=== PATIENT | male | born 1985 | race African-American/Black ===

== ENCOUNTER 2021-01-21 18:37 | Inpatient (IN) | payer OTHER, SELFPAY ==
[2021-01-21] VITALS (24 sets, daily range): BP systolic 111–142; BP diastolic 69–97; PULSE 108–127; RESP 19–28; TEMP 37.5; O2SAT 93–100
--- NOTE | ~2021-01-21 | XR_ITS ---
EXAMINATION: XR chest 1V portable DATE: 01/25/2021 06:00 INDICATION: Acute respiratory failure TECHNIQUE: frontal view of the chest was obtained. COMPARISON: Chest radiograph dated 01/24/2021 FINDINGS: Endotracheal tube tip 4.6 cm above the jovanni. Right internal jugular central venous catheter with di stal tip at the caudal superior vena cava. Nasogastric tube extends below the left hemidiaphragm wit h distal tip collimated off the study. New bandlike opacity in right middle lobe abutting the minor fissure. Also new retrocardiac opacity m edial left lower lung zone with obscuration of the costophrenic angle. No pneumothorax or right-sided pleural effusion.. The cardiomediastinal silhouette is normal. IMPRESSION: 1. New opacities in the bilateral lower lung zones which could represent atelectasis, pneumonia, smal l left pleural effusion or some combination thereof. Reviewed, dictated and finalized at location A. IMPRESSION: 1. New opacities in the bilateral lower lung zones which could represent atelec tasis, pneumonia, small left pleural effusion or some combination thereof.
--- NOTE | ~2021-01-21 | XR_ITS ---
XR chest 1V portable DATE: 01/31/2021 05:46 INDICATION: Respiratory failure TECHNIQUE: Portable AP chest on 01/31/2021 at 0522 hours COMPARISON: 01/30/2021 portable AP chest at 0511 hours FINDINGS: ET tube in satisfactory position 4.8 cm above jovanni. NG tube in stomach. Right internal ju gular central venous catheter tip overlies the upper aspect of right atrium. There is mild infiltrate or atelectasis in both perihilar and lower lung zones. No pleural effusion o r pneumothorax is evident. IMPRESSION: Mild infiltrates or atelectasis in the perihilar and lower lung zones Reviewed, dictated and finalized at location A. IMPRESSION: Mild infiltrates or atelectasis in the perihilar and lower lung zon es
--- NOTE | ~2021-01-21 | XR_ITS ---
EXAMINATION: XR chest port-a-cath/central INDICATION: Dialysis catheter placement TECHNIQUE: Portable AP view of the chest is obtained at 1436 hours COMPARISON: 0524 hours FINDINGS: A large bore left internal jugular catheter ends with its tip in the distal superior vena c larry. A right internal jugular catheter ends with its tip in the distal superior vena cava. The endotr acheal tube ends approximately 3.6 cm above the jovanni. The nasogastric tube is followed as far as th e stomach. Its tip is beyond the inferior margin of the radiograph. Patchy bilateral airspace opaciti es persist without significant change. A small left pleural effusion is stable. There is no pneumotho rax. The cardiomediastinal silhouette is normal for technique. IMPRESSION: 1. Lines and tubes in adequate position. 2. Stable diffuse lung disease, consistent with atelectasis versus pneumonia versus pulmonary edema. 3. Small left pleural effusion. Reviewed, dictated and finalized at location B. IMPRESSION: 1. Lines and tubes in adequate position. 2. Stable diffuse lung disease, consistent with atelectasis versus pneumonia ve rsus pulmonary edema. 3. Small left pleural effusion.
--- NOTE | ~2021-01-21 | XR_ITS ---
EXAMINATION: XR chest 1V portable DATE: 01/23/2021 05:37 INDICATION: Acute respiratory failure. TECHNIQUE: frontal view of the chest was obtained. COMPARISON: Chest radiograph dated 01/22/2021 FINDINGS: Endotracheal tube tip 4.2 cm above the jovanni. Nasogastric tube extends below the left hemidiaphragm with distal tip collimated off the study. Right internal jugular central venous catheter with distal tip at the caudal superior vena cava. No focal airspace opacities, pulmonary edema, pleural effusion or pneumothorax. The cardiomediastinal silhouette is normal. Visualized bones and soft tissues are unremarkable. IMPRESSION: 1. No acute cardiopulmonary disease. Reviewed, dictated and finalized at location A.
--- NOTE | ~2021-01-21 | CT_ITS ---
EXAMINATION: CT BRAIN W/O DATE: 01/21/2021 23:31 INDICATION: Redness of breath. Altered mental status. Covid positive. TECHNIQUE: Computed tomography (CT) of the head was performed without intravenous contrast. The dose- length product was 756.67 mGy-cm. Automated exposure control and iterative reconstruction technique w ere employed. COMPARISON: 06/09/2010 FINDINGS: Normal brain parenchymal volume for age. Normal beverly-white differentiation. No acute intrac ranial hemorrhage, infarction, mass or mass effect. No ventriculomegaly or midline shift. Midline sagittal images demonstrate a normal corpus callosum, c raniovertebral junction and sella turcica. Basilar cisterns are patent. There is mild mucosal thickening of the posterior ethmoid sinuses. IMPRESSION: 1. No acute intracranial abnormality. Reviewed, dictated and finalized at location A.
--- NOTE | ~2021-01-21 | XR_ITS ---
XR chest 1V portable DATE: 02/02/2021 05:25 INDICATION: Respiratory failure, Covid pneumonia TECHNIQUE: Portable AP chest on 02/12/2021 at 0518 hours COMPARISON: 02/01/2021 portable AP chest at 0510 hours FINDINGS: ET tube tip approximately 6.3 cm above jovanni; ideal range is 2-5 cm. Right internal jugular central venous catheter tip overlies the lower aspect of the superior vena cav a. NG tube is noted in the stomach. Cardiomegaly. There is mild pulmonary vascular congestion and redistribution. There are patchy bilate ral perihilar and lower lung zone infiltrates; diffusion diagnosis includes pulmonary edema and pneum onia. IMPRESSION: ET tube 6.3 cm above jovanni; ideal range is 2-5 cm Stable congestive changes and bilateral pulmonary infiltrates; diffusion diagnosis includes pulmonary edema and/or pneumonia Reviewed, dictated and finalized at location A. IMPRESSION: ET tube 6.3 cm above jovanni; ideal range is 2-5 cm Stable congestive changes and bilateral pulmonary infiltrates; diffusion diagno sis includes pulmonary edema and/or pneumonia
--- NOTE | ~2021-01-21 | XR_ITS ---
EXAMINATION: XR chest 1V portable DATE: 01/21/2021 19:54 INDICATION: Altered mental status. TECHNIQUE: A single frontal view of the chest was obtained. COMPARISON: None. FINDINGS: The chest demonstrates clear lungs without pneumonia, pleural effusion, or pneumothorax. Th e heart size is normal. IMPRESSION: 1. No acute cardiopulmonary disease. Reviewed, dictated and finalized at location A.
--- NOTE | ~2021-01-21 | XR_ITS ---
EXAMINATION: XR chest 1V portable DATE: 01/26/2021 05:20 INDICATION: Acute respiratory failure TECHNIQUE: frontal view of the chest was obtained. COMPARISON: Chest radiograph dated 01/25/2021 FINDINGS: Endotracheal tube tip 4.0 cm above the jovanni. Right internal jugular central venous catheter with di stal tip at the caudal superior vena cava. Nasogastric tube extends below the left hemidiaphragm wit h distal tip collimated off the study. Airspace opacities in the bilateral lower lung zones with minimal improvement at the left lung base. No pneumothorax or definitive pleural effusion. The cardiomediastinal silhouette is normal. IMPRESSION: 1. Opacities in the bilateral lower lung zones with minimal improvement on the left which could be re lated to atelectasis and/or pneumonia. Reviewed, dictated and finalized at location A. IMPRESSION: 1. Opacities in the bilateral lower lung zones with minimal improvement on the left which could be related to atelectasis and/or pneumonia.
--- NOTE | ~2021-01-21 | XR_ITS ---
EXAMINATION: XR chest 1V portable INDICATION: Respiratory failure TECHNIQUE: Portable AP chest at 0511 hours COMPARISON: 01/29/2021 FINDINGS: The endotracheal tube ends approximately 3.8 cm above the jovanni. The nasogastric tube is f ollowed as far as the stomach. Its tip is beyond the inferior margin of the radiograph. A right inter nal jugular central venous catheter ends with its tip in the midsuperior vena cava. Cardiomegaly is n oted. There are diffuse interstitial and airspace opacities with slight worsening. IMPRESSION: 1. Diffuse lung disease with interval worsening, consistent with pneumonia and/or pulmonary edema and /or acute respiratory distress syndrome (ARDS). Reviewed, dictated and finalized at location A. IMPRESSION: 1. Diffuse lung disease with interval worsening, consistent with pneumonia and/ or pulmonary edema and/or acute respiratory distress syndrome (ARDS).
--- NOTE | ~2021-01-21 | US_ITS ---
US renal BI 01/22/2021 07:57 Procedure: Realtime transabdominal ultrasound of the kidneys and bladder. Indication: Renal failure Comparison: No prior studies for comparison. Findings: Renal echotexture is normal bilaterally without hydronephrosis, contour deforming mass or r enal calculus. The right kidney measures 10 cm and left kidney measures 10 cm. Bladder evaluation li mited by Botello catheter. Impression: 1: Unremarkable renal ultrasound. No stones, masses or hydronephrosis. Reviewed, dictated and finalized at location A. Impression: 1: Unremarkable renal ultrasound. No stones, masses or hydronephrosis.
--- NOTE | ~2021-01-21 | XR_ITS ---
EXAMINATION: XR chest 1V portable INDICATION: Respiratory failure TECHNIQUE: Portable AP chest at 0515 hours COMPARISON: 01/27/2021 FINDINGS: The endotracheal tube ends approximately 5.1 cm above the jovanni. The nasogastric tube is f ollowed as far as the stomach. Its tip is beyond the inferior margin of the radiograph. A right inter nal jugular central venous catheter ends with its tip in the distal superior vena cava. Airspace opac ities of the mid and lower lung zones persist with interval worsening in the right lung base. The car diomediastinal silhouette is normal. No pleural effusion or pneumothorax is identified. IMPRESSION: 1. Diffuse lung disease with interval worsening, consistent with pneumonia and/or pulmonary edema and /or acute respiratory distress syndrome (ARDS). Reviewed, dictated and finalized at location A. IMPRESSION: 1. Diffuse lung disease with interval worsening, consistent with pneumonia and/ or pulmonary edema and/or acute respiratory distress syndrome (ARDS).
--- NOTE | ~2021-01-21 | XR_ITS ---
EXAMINATION: XR abdomen NG/feed tube insert DATE: 01/26/2021 11:09 INDICATION: Nasogastric tube placement. TECHNIQUE: An upright view of the abdomen was obtained. COMPARISON: CT 01/26/2021 FINDINGS: The lower abdomen is excluded. There are no dilated loops of bowel. The nasogastric tube ti p is in the stomach. There is a central venous catheter tip at superior cavoatrial junction. IMPRESSION: 1. Nasogastric tube tip in the stomach. Reviewed, dictated and finalized at location A.
--- NOTE | ~2021-01-21 | XR_ITS ---
XR abdomen NG/feed tube insert INDICATION: Evaluate G-tube position. TECHNIQUE: Limited KUB perform for evaluating NG tube . COMPARISON: No prior studies for comparison. FINDINGS: NG tube tip in the stomach. Visualized bowel gas pattern is unremarkable. IMPRESSION: 1: NG tube tip in the stomach. Reviewed, dictated and finalized at location A.
--- NOTE | ~2021-01-21 | CT_ITS ---
EXAMINATION: CT sinus wo con DATE: 01/26/2021 10:13 INDICATION: Fever. TECHNIQUE: Computed tomography (CT) of the paranasal sinuses was performed without intravenous contra st. Iterative reconstruction technique were employed. The dose-length product was 278.02 mGy-cm. COMPARISON: Head CT 01/21/2021 FINDINGS: There is extensive opacification of the frontal, ethmoid, and sphenoid sinuses. There is mo derate mucosal thickening in the maxillary sinuses with dependent fluid on the left. There is mucosal thickening and fluid in the nasal cavity. A nasogastric tube is noted. There are trace bilateral mas toid effusions. There is rightward deviation of the nasal septum with a right lateral spur. There is complete occlusion of right ostiomeatal unit. There is occlusion of the left ostiomeatal unit at the middle meatus. IMPRESSION: 1. Extensive opacification of the paranasal sinuses and nasal cavity, predominantly new from , which may be secondary to the presence of the nasogastric tube and endotracheal tube. Reviewed, dictated and finalized at location A. IMPRESSION: 1. Extensive opacification of the paranasal sinuses and nasal cavity, predomina ntly new from 01/21/2021, which may be secondary to the presence of the nasogast argentian tube and endotracheal tube.
--- NOTE | ~2021-01-21 | XR_ITS ---
EXAMINATION: XR chest 1V portable DATE: 01/27/2021 05:28 INDICATION: Acute respiratory failure TECHNIQUE: frontal view of the chest was obtained. COMPARISON: Chest radiograph dated 01/26/2021 FINDINGS: Endotracheal tube tip 4.7 cm above the jovanni. Right internal jugular central venous catheter with di stal tip at the caudal superior vena cava. Nasogastric tube extends below the left hemidiaphragm wit h distal tip collimated off the study. No significant change in groundglass and scattered bilateral patchy airspace opacities consistent wit h pneumonia. No pneumothorax or definitive pleural effusion. Borderline heart size accounting for AP technique. IMPRESSION: 1. Unchanged bilateral lung disease consistent with pneumonia. Reviewed, dictated and finalized at location A.
--- NOTE | ~2021-01-21 | XR_ITS ---
EXAMINATION: XR chest port-a-cath/central DATE: 01/23/2021 14:05 INDICATION: Central line placement. TECHNIQUE: A single frontal view of the chest was obtained. COMPARISON: Chest single view at 5:21 AM FINDINGS: There are airspace opacities in left perihilar region and left lower lung zone. No pleural effusion or pneumothorax. The heart size is normal. There is a left internal jugular central venous c atheter with tip at the superior cavoatrial junction. A right internal jugular central venous cathete r is seen with tip at the superior cavoatrial junction. The endotracheal tube tip is 4.5 cm above the jovanni. The nasogastric tube tip is beyond the inferior margin of the radiograph, but at least to th e stomach. IMPRESSION: 1. Worsened airspace opacities in left perihilar region and left lower lung zone, consistent with ate lectasis versus pneumonia. 2. New central line tip at the superior cavoatrial junction. Reviewed, dictated and finalized at location A. IMPRESSION: 1. Worsened airspace opacities in left perihilar region and left lower lung zon e, consistent with atelectasis versus pneumonia. 2. New central line tip at the superior cavoatrial junction.
--- NOTE | ~2021-01-21 | XR_ITS ---
XR chest 1V portable 01/22/2021 06:10 Indication: Respiratory distress. Intubation. Procedure: AP portable chest Comparison: 01/21/2021 Findings: Endotracheal tube tip 4 cm above the jovanni. NG tube in the stomach. Cardiomegaly. No focal air space disease, pulmonary edema, pleural effusion or suspected pneumothorax. Right IJ central dahiana e tip in the SVC. Impression: 1: No acute cardiopulmonary disease. Reviewed, dictated and finalized at location A. Impression: 1: No acute cardiopulmonary disease.
--- NOTE | ~2021-01-21 | XR_ITS ---
EXAMINATION: XR chest 1V portable EXAM DATE: 01/29/2021 17:19 INDICATION: advance ET tube . TECHNIQUE: Portable AP frontal chest x-ray was obtained. Comparison is made to prior examination from earlier same date. FINDINGS: Endotracheal tube tip is 2-3 centimeters above the jovanni. There is a nasogastric tube see n with tip collimated off the study, but below the left hemidiaphragm. Right IJ venous line. Left mid and lower lung zone ill-defined airspace disease, edema and/or pneumonia, stable or with mil d interval improvement. There are no sizable pleural effusions. There is no pneumothorax suspected . The cardiomediastinal silhouette is prominent but magnified on this AP technique. The bones and soft tissues are unremarkable. IMPRESSION: 1. Line and tube(s) in position. 2. Ill-defined basilar airspace disease, stable or mild improvement. Reviewed, dictated and finalized at location .
--- NOTE | ~2021-01-21 | US_ITS ---
EXAMINATION: US venous doppler [facility] DATE: 01/31/2021 08:50 INDICATION: Lower limb edema. TECHNIQUE: Grayscale ultrasound images without and with compression and Doppler ultrasound images of the bilateral lower extremity veins were obtained. COMPARISON: None. FINDINGS: The visualized portions of right common femoral vein, profunda (deep) femoral vein, femoral vein, pop liteal vein, peroneal veins, posterior tibial veins, and greater saphenous vein outflow are patent. The visualized portions of left common femoral vein, profunda femoral vein, femoral vein, popliteal v ein, peroneal veins, posterior tibial veins, and greater saphenous vein outflow are patent. IMPRESSION: 1. No deep venous thrombosis. Reviewed, dictated and finalized at location A.
--- NOTE | ~2021-01-21 | XR_ITS ---
XR chest 1V portable DATE: 02/01/2021 05:31 INDICATION: Respiratory failure TECHNIQUE: Portable AP chest on 02/01/2021 at 0510 hours COMPARISON: 01/31/2021 portable AP chest at 0522 hours FINDINGS: Cardiomegaly. There is pulmonary vascular congestion and there are bilateral perihilar and lower lung zone infiltra miranda and/or atelectasis, stable since 01/31/2021. ET tube approximately 5.2 cm above jovanni. NG tube in stomach. Right internal jugular central venous catheter tip is situated near the superior cavoatrial junction. No pneumothorax. No pleural effusion is evident. IMPRESSION: Cardiomegaly, congestive changes Reviewed, dictated and finalized at location A.
--- NOTE | ~2021-01-21 | XR_ITS ---
EXAMINATION: XR chest 1V portable INDICATION: Respiratory failure TECHNIQUE: Portable AP chest at 0509 hours COMPARISON: 01/28/2021 FINDINGS: The endotracheal tube ends approximately 4.4 cm above the jovanni. The nasogastric tube is f ollowed as far as the stomach. Its tip is beyond the inferior margin of the radiograph. A right inter nal jugular catheter ends with its tip in the midsuperior vena cava. Cardiomegaly is noted. A small l eft pleural effusion is suggested. Airspace opacities of the right lung base have improved. There are unchanged opacities in the left mid and lower lung zones. No pneumothorax is identified. IMPRESSION: 1. Improved airspace opacities of the right lung base and stable opacities of the left mid and lower lung zones, consistent with pneumonia and/or pulmonary edema. 2. Likely small left pleural effusion. Reviewed, dictated and finalized at location A. IMPRESSION: 1. Improved airspace opacities of the right lung base and stable opacities of t he left mid and lower lung zones, consistent with pneumonia and/or pulmonary ed oneil. 2. Likely small left pleural effusion.
--- NOTE | ~2021-01-21 | XR_ITS ---
XR chest ET placement 01/21/2021 23:05 Indication: Respiratory distress. Central line placement. Procedure: AP portable chest Comparison: 01/21/2021 Findings: Endotracheal tube tip 3.4 cm above the jovanni. NG tube in the stomach. Right IJ central dahiana e tip near the cavoatrial junction. No focal air space disease, pulmonary edema, pleural effusion or suspected pneumothorax. Cardiomegaly. Impression: 1: No acute cardiopulmonary disease. 2: Cardiomegaly. Reviewed, dictated and finalized at location A. Impression: 1: No acute cardiopulmonary disease. 2: Cardiomegaly.
--- NOTE | ~2021-01-21 | XR_ITS ---
EXAMINATION: XR chest 1V portable DATE: 01/24/2021 05:46 INDICATION: Acute respiratory failure TECHNIQUE: frontal view of the chest was obtained. COMPARISON: Chest radiograph dated 01/23/2021 FINDINGS: Endotracheal tube tip 4.7 cm above the jovanni. Bilateral internal jugular central venous catheters, t he larger bore catheter on the left, with the distal tips of both positioned within the caudal superi or vena cava. Nasogastric tube extends below the left hemidiaphragm with distal tip collimated off t he study. Gradient of hazy basilar predominant opacities in the left mid to lower lung zone consistent with sma ll posterior layering pleural effusion. New retrocardiac consolidation which could represent associat ed atelectasis and/or pneumonia. Right lung remains clear. No pneumothorax or right-sided pleural eff usion. The cardiomediastinal silhouette is normal. Visualized bones and soft tissues are unremarkable . IMPRESSION: 1. Increasing opacities in the left mid to lower lung zone consistent with small posteriorly layering pleural effusion and associated basilar atelectasis and/or pneumonia. Reviewed, dictated and finalized at location A. IMPRESSION: 1. Increasing opacities in the left mid to lower lung zone consistent with smal l posteriorly layering pleural effusion and associated basilar atelectasis and/ or pneumonia.
--- NOTE | ~2021-01-21 | CT_ITS ---
EXAMINATION: CT chest abdomen pelvis wo con DATE: 01/26/2021 10:13 INDICATION: Fever. Respiratory failure. Sepsis. TECHNIQUE: Computed tomography (CT) of the chest, abdomen, and pelvis was performed without intraveno us contrast. Automated exposure control and iterative reconstruction technique were employed. The dos e-length product was 2025.16 mGy-cm. COMPARISON: None FINDINGS: CHEST CT: Endotracheal tube tip 2.5 cm above the jovanni. Right internal jugular central venous catheter tip at the high right atrium. Small lung volumes. Bilateral patchy consolidation and groundglass opacities t hroughout both lungs relatively sparing the right middle lobe consistent with COVID pneumonia. No ple ural effusion. Cardiomegaly. No pericardial effusion. Mild likely reactive mediastinal lymphadenopath y. Minimal thoracic spondylosis. ABDOMEN/PELVIS CT: Nasogastric tube with tip at the gastric antrum. Diffuse hepatic steatosis with focal sparing along t he gallbladder fossa. Decompressed gallbladder, spleen, pancreas and bilateral adrenal glands are nor mal. Kidneys and ureters are normal with no urolithiasis, hydroureteronephrosis or perinephric/ureter al stranding. Botello catheter within the decompressed bladder. Very small bilateral fat-containing ing uinal hernias. Bowels including the appendix are normal. No abscess or free intraperitoneal gas or fl uid. No pathologically enlarged abdominal or pelvic lymphadenopathy. Bones are unremarkable. IMPRESSION: 1. Patchy bilateral lung disease consistent with COVID pneumonia. 2. Mild likely reactive mediastinal lymphadenopathy. 3. Diffuse hepatic steatosis. Reviewed, dictated and finalized at location A.
--- NOTE | 2021-01-21 18:45 | ECG_ITS ---
Measurements Intervals [place] Rate: 109 P: 60 OK: 147 QRS: 61 QRSD: 106 T: -29 QT: 319 QTc: 431 Interpretive Statements SINUS TACHYCARDIA LEFT VENTRICULAR HYPERTROPHY AND ST-T CHANGE ST-T WAVE ABNORMALITY IN INFERIOR LEADS- CONSIDER ISCHEMIA PEAKED T WAVES- CONSIDER HYPERKALEMIA OR ISCHEMIA BASELINE WANDER- V4-V6 ABNORMAL ECG Electronically Signed On 01-21-2021 19:34:00 CDT by Rk Kaplan D.O.
--- NOTE | 2021-01-21 19:18 | ED.AMS ---
HPI - Altered Mental Status General Chief Complaint: Altered Mental Status <AMAYA Castillo Last Filed: 01/21/21 23:48> Stated Complaint: Lethergy, COVID + <AMAYA Castillo Last Filed: 01/21/21 23:48> Time Seen by Provider: 01/21/21 19:01 <AMAYA Castillo Last Filed: 01/21/21 23:48> Source: patient and family <AMAYA Castillo Last Filed: 01/21/21 23:48> Mode of arrival: wheelchair <AMAYA Castillo Last Filed: 01/21/21 23:48> Limitations: clinical condition <AMAYA Castillo Last Filed: 01/21/21 23:48> History of Present Illness HPI narrative: This is a 36 year old male that presents to the ER for altered mental status. Patient's dropped him off with complaints of lethargy and altered mental status. Reportedly the whole house is currently sick with covid. Patient reportedly had a positive test last Saturday with a home kit. On Saturday he started to have body aches and fatigue. By Saturday he was having a lot of vomiting. Patient's does not report he had known history of diabetes, but per chart review there is noted history of diabetes and seizure disorder. Patient has no complaints currently. Lethargic, but easily arousable. Denies fevers, chest pain, shortness of breath, or abdominal pain. <AMAYA Castillo Last Filed: 01/21/21 23:48> Related Data Home Medications: Home Medications Medication Instructions Recorded Confirmed Unable to Obtain Home Medications 01/22/21 01/22/21 <AMAYA Castillo Last Filed: 01/21/21 23:48> Allergies/Adverse Reactions: Allergies Allergy/AdvReac Type Severity Reaction Status Date / Time No Known Allergies Allergy Verified 10/09/14 12:32 <AMAYA Castillo Last Filed: 01/21/21 23:48> Review of Systems Review of Systems: Narrative: CONSTITUTIONAL: Denies fever CARDIOVASCULAR: Denies chest pain RESPIRATORY: Denies cough or dyspnea. GASTROINTESTINAL: Denies abdominal pain, vomiting <Zohreh Henley PA-C - Last Filed: 01/21/21 23:48> All systems reviewed & are unremarkable except as noted in HPI and below <Zohreh Henley PA-C - Last Filed: 01/21/21 23:48> [facility] Past Medical History Medical History: Medical History (Updated 01/21/21 @ 22:56 by Zohreh Henley PA-C) History of diabetes mellitus History of seizures <Zohreh Henley PA-C - Last Filed: 01/21/21 23:48> Exam Narrative: Exam Narrative: GENERAL: Lethargic, obese, in no acute distress. HEAD: Normocephalic, atraumatic. EYES: PERRLA and EOMI. ENT: Nares clear, no rhinorrhea or epistaxis. Mucous membranes dry. Oropharynx without tonsillar hypertrophy exudate or other lesions. Bilateral TMs pearly beverly non-bulging NECK: Supple. No adenopathy or masses. CHEST: Clear to auscultation. No respiratory distress. No wheezes rales or rhonchi HEART: Regular rate and rhythm. No murmur heard. Normal peripheral pulses. ABDOMEN: Soft, nontender, nondistended, normal active bowel sounds. EXTREMITIES: Normal range of motion. No edema. SKIN: Warm, dry, no rash. NEURO: No focal deficits. Lethargic, oriented x 3 when aroused. PSYCH: Normal mood and affect <Zohreh Henley PA-C - Last Filed: 01/21/21 23:48> Course HOT DIMPLING MACHINE OPERATOR/PA Physician Supervision For this patient encounter, I reviewed the HOT DIMPLING MACHINE OPERATOR or PA documentation, treatment plan, and medical decision making; and I had [id number] time with this patient. 36 yo male brought in by family for lethargy and altered mental status. He reportedly tested positive for COVID recently. Found to be in DKA with glucose of 1700. Critically high potassium of 8.4. He was altered and pulled out multiple IVs. A central line was replaced for more reliable access. Shortly after this he had to be intubated for airway protection and to help facilitate continuing medical care. <Dontrell Jay MD - Last Filed: 01/22/21 02:31> Consultations Consultation #1: S
[2021-01-21] MEDS: SODIUM CHLORIDE 0.9% IV 1,000 ML 999 ML IV CONT ×3 (19:26→21:58)
[2021-01-21 19:30] LABS: Base Excess ABG -19.4 mEq/l (+/-2.0); Fractional Inspired Oxygen 21 %; HCO3 ABG 5.5 mEq/l (22.0-26.0); Oxygen Content ABG 21.5 %vol (16.0-22.0); Oxygen Saturation ABG 98.8 % (95.0-100.0); Oxyhemoglobin 97.6 % THb (90.0-100.0); Total Hemoglobin 15.5 g/dL (12.0-18.0)
[2021-01-21] MEDS: INSULIN HUMAN REGULAR (*BKC) 100 UNITS/ML 12 UNITS IV PUSH (19:31)
[2021-01-21 19:32] LABS: pH ABG 7.216 (7.350-7.450)
[2021-01-21 19:34] LABS: Alveolar/Arterial O2 Gradient < 2.0 mmHg; Device ROOM AIR; Modified Allen's Test Pass; Site Drawn RIGHT RADIAL
[2021-01-21 19:35] LABS: Basophils Absolute Auto 0.1 K/mm3 (0.0-0.1); Basophils Percent Auto 0.2 % (0.2-1.2); Hematocrit 52.1 % (42.0-52.0); Hemoglobin 14.7 g/dL (14.0-18.0); Immature Granulocyte Absolute 0.41 K/mm3 (0.00-0.031); Immature Granulocyte Percent A 1.8 % (0-0.5); Lymphocytes Absolute Auto 0.79 K/mm3 (0.9-3.2); Lymphocytes Percent Auto 3.4 % (18.3-44.2); Mean Corpuscular HGB Conc 28.2 g/dl (32-36); Mean Corpuscular Hemoglobin 26.1 pg (26-34); Mean Corpuscular Volume 92.5 fl (80-100); Monocytes Absolute Auto 2.5 K/mm3 (0.1-0.6); Neutrophils Absolute Auto 19.2 K/mm3 (1.3-6.7); Neutrophils Percent Auto 83.6 % (45.5-73.1); Platelet Count Result 305 k/mm3 (150-375); Red Blood Count 5.63 M/mm3 (4.6-6.20); Red Cell Distribution Width 12.7 % (11.5-14.5)
[2021-01-21 19:51] LABS: Lactic Acid Reflex 3.1 mmol/L (0.7-2.1)
[2021-01-21 20:01] LABS: Hemoglobin A1C > 14.0 % (<5.7)
--- NOTE | 2021-01-21 20:09 | PC.NURSE ---
Patient attempting to get out of bed and hard to redirect. Patient starting to yell. CT transport in room to take him to CT. Patient uncooperative. Patient assisted back into bed and sitter at bedside. Spoke with EDP and was told to wait on CT at this time,he will re-evaluate patient. When patient was uncooperative and attempting to get out of bed, he pulled out his IV placed via US, the 20g in left AC.
[2021-01-21 20:16] LABS: Alanine Aminotransferase 39 U/L (4-50); Albumin Level 4.6 g/dL (3.5-5.1); Alkaline Phosphatase 140 U/L (38-126); Anion Gap 34 mmol/L (8-16); Aspartate Amino Transferase 27 U/L (17-59); Bilirubin,Total 0.6 mg/dL (0.2-1.3); Blood Urea Nitrogen 103 mg/dL (9-20); Calcium 9.1 mg/dL (8.4-10.2); Carbon Dioxide 6 mmol/L (22-30); Chloride 77 mmol/L (98-107); Estimated Glomerular Filt Rate 17; Glucose 1746 mg/dL (75-110); Lactate Dehydrogenase 576 U/L (313-618); Magnesium 4.4 mg/dL (1.6-2.3); Phosphorus 8.1 mg/dL (2.5-4.5); Potassium 8.4 mmol/L (3.4-5.0); Sodium 117 mmol/L (137-145)
--- NOTE | 2021-01-21 20:23 | PC.NURSE ---
Patient pulled out other IV, ERP at bedside. VORB give 5mg IM haldol.
--- NOTE | 2021-01-21 20:26 | PC.NURSE ---
ERP gave VORB to not give haldol, instead give 4mg IM ativan.
[2021-01-21 20:28] LABS: Prothrombin Time 13.7 Seconds (11.1-14.7)
[2021-01-21 20:29] LABS: Partial Thromboplastin Time 23.6 SECONDS (22.3-36.8)
[2021-01-21] MEDS: LORazepam INJ (*CRX) 2 MG/ML VIAL 4 MG IM (20:31)
[2021-01-21 20:32] LABS: Procalcitonin 5.7 ng/mL
[2021-01-21 20:34] LABS: Glucose Point of Care > 500 mg/dl (65-105)
[2021-01-21] MEDS: INSULIN HUMAN REGULAR (*BKC) 100 UNITS in SODIUM CHLORIDE 0.9% IV 99 ML 30 UNITS IV CONT (20:43)
[2021-01-21] MEDS: SODIUM BICARBONATE 8.4% 50 MEQ/50 ML SYRINGE IV PUSH (20:43)
[2021-01-21] MEDS: CALCIUM GLUCONATE 1,000 MG/10 ML VIAL 1000 MG IV PUSH (20:43)
[2021-01-21] MEDS: ALBUTEROL SULFATE NEB 2.5 MG/0.5 ML INH 5 MG INHALATION ×2 (20:51)
[2021-01-21 21:17] LABS: Glucose Point of Care > 500 mg/dl (65-105)
[2021-01-21 21:47] LABS: Glucose Point of Care > 500 mg/dl (65-105)
[2021-01-21] MEDS: CEFEPIME 0.5 GM in SODIUM CHLORIDE 0.9% IV 50 ML IVPB (21:47)
--- NOTE | 2021-01-21 21:54 | PC.NURSE ---
ERP in room to place central line.
[2021-01-21 22:33] LABS: Reflex Lactic Acid Yes or No Add Lactic
--- NOTE | 2021-01-21 22:35 | PC.NURSE ---
ERP in room decide to intubate patient. Patient starting to vomit. 2236 VORB give 20 etomidate, 50 sonia for intubation. 2238 meds given ivp. 2241 patient intubated per EDP with size 8 tube, positive color change and equal breath sounds. secured at 24 at the teeth. 2241 NG placed by EDP in right nare, secured at 70.
--- NOTE | 2021-01-21 22:55 | PC.NURSE ---
2254 VORB give 4mg of versed.
--- NOTE | 2021-01-21 23:06 | PM.IMHP ---
H&P: HPI History of Present Illness Date/Time: 01/21/21 23:06 Chief Complaint: altered mental status Narrative: This is a 36-year-old male with past medical history significant for seizure disorder according to old existing records, patient was drove to the emergency room by his who dropped him of due to altered mental status according to everybody has COVID at the Heart patient has been diagnosed with COVID last Saturday with a home kit according to he has been having vomiting and has been very drowsy. patient had to be brought back inside the emergency room on a wheelchair as he was to weak. preliminary workup was significant for beta hydroxy butyrate of 14, a blood sugar above 1746, a pH of 7.25 a sodium of 117 and creatinine of 4.7 with creatinine with potassium of 8.4 a Cr of 4.8, A HEMOGLOBIN A1C WAS 14. HOWEVER PER RECORD PATIENT AND UNAWARE OF PATIENT'S EXISTING DIABETES.Patient was unable to provide any history due to his altered mental status and finally patient was placed on a ventilator due to progressive obtundation. Review of Systems Review of Systems: ROS unobtainable: Yes unobtainable due to medical condition ( ALTERED MENTAL STATUS ON VENTILATOR SUPPORT) [facility] Past Medical History Medical History (Updated 01/22/21 @ 02:48 by Cristhian Lobato MD) History of diabetes mellitus History of seizures Social History Social History Smoking status: Current every day smoker Tobacco type: cigars Second hand tobacco smoke exposure: Yes Additional smoking assessment comments: 6-10 black and mild cigars per day Alcohol intake: current Drinks per week: 3 Substance use: current Substance use type: marijuana Last use: 2-3 weeks Gender identity (if verbalized by the patient): Male Spiritual care concerns: No Meds Home Medications and Allergies Home Medications Medication Instructions Recorded Confirmed Type Unable to Obtain Home Medications 01/22/21 01/22/21 History Allergies Allergy/AdvReac Type Severity Reaction Status Date / Time No Known Allergies Allergy Verified 10/09/14 12:32 Vital Signs Vital Signs - 24 hr 01/21/21 18:57 01/21/21 19:06 01/21/21 19:15 Pulse Rate 109 H 111 H 110 H Respiratory Rate 28 H 20 22 H Blood Pressure 128/76 128/76 118/69 Pulse Oximetry 98 99 01/21/21 20:45 01/21/21 21:00 01/21/21 21:39 Pulse Rate 113 H 116 H 114 H Respiratory Rate 19 24 H 24 H Blood Pressure 111/91 H 111/91 H Pulse Oximetry 100 100 01/21/21 23:01 Pulse Rate 122 H Respiratory Rate Blood Pressure Pulse Oximetry 99 Exam Narrative: Exam Narrative: LAYING IN BED ON VENTILATOR SUPPORT Const: General: well developed, awake, ill appearing acutely, well groomed and other ( COMATOSE) Nutritional Appearance: overweight Orientation/consciousness: Other orientation findings ( COMATOSE) HENMT: Head: normal to inspection, normocephalic and atraumatic Ears: hearing grossly normal bilaterally Face and sinus: normal facial exam Eyes: General: appearance normal, both eyes and all related structures Pupils: Equal, round and reactive pupils present EOM: EOMs intact bilaterally Neck: Neck: full ROM, no lymphadenopathy and no JVD Thyroid: thyroid normal Lymphatic: no lymphadenopathy noted Resp: Effort & Inspection: decreased respiratory effort Auscultation: clear to auscultation bilaterally Cardio: Jugular venous distension: no JVD Rate: tachycardic Heart sounds: S1 normal heart sound present and S2 normal heart sound present GI: GI Palp: Yes Soft to palpation and Yes No hepatosplenomegaly present : General: Yes deferred Other: MENDO[place] IN PLACE Skin: Rashes: no rashes Wounds: no wounds Neuro: General: no focal motor deficits and CN's II-XI intact bilaterally Cranial nerves: Yes CN's II-XII intact bilaterally and Yes Equal, round and reactive pupils present Cognition (Neuro): abnormal cognition ( COMATOSE) Gait exam (Neuro):
[2021-01-21] MEDS: FENTANYL 2,500MCG/NS250ML(*CRX 2,500 MCG/250 ML BAG IV CONT (23:10)
[2021-01-21 23:12] LABS: Lactic Acid 3.5 mmol/L (0.7-2.1)
[2021-01-21 23:13] LABS: Glucose Point of Care > 500 mg/dl (65-105)
[2021-01-21] MEDS: MIDAZOLAM 100MG/NS 100ML(*CRX) 100 MG/100 ML BAG IV CONT (23:14)
[2021-01-21 23:20] LABS: Add Urine Microscopic? YES; Appearance Urine Cloudy (Clear); Bacteria Urine Trace /hpf; Bilirubin Urine Negative (Negative); Blood Urine 3+ (Negative); Color Urine Yellow (Yellow); Glucose Urine UA 3+ mg/dL (Negative); Ketones Urine 1+ mg/dL (Negative); Leukocyte Esterase Ur Negative LEU/UL (Negative); Mucus Urine Rare /lpf; Nitrate Urine Negative (Negative); Protein Urine 1+ mg/dL (Negative); RBC Urine 0-2 /hpf (0-2); Specific Grav Ur 1.022 (1.001-1.035); Urobilinogen Urine Negative mg/dL (<2.0); WBC Urine 0-3 /hpf
[2021-01-21 23:23] LABS: Amphetamine Screen Urine Negative (Negative); Barbiturate Screen Urine Negative (Negative); Benzodiazepines Screen Urine Negative (Negative); Cannabinoid Screen Urine Negative (Negative); Cocaine Screen Urine Negative (Negative); Methadone Screen Urine Negative (Negative); Opiate Screen Urine Negative (Negative); Phencyclidine Screen Urine Negative (Negative)
[2021-01-21 23:35] LABS: Anion Gap 25 mmol/L (8-16); Blood Urea Nitrogen 108 mg/dL (9-20); Calcium 8.2 mg/dL (8.4-10.2); Carbon Dioxide 11 mmol/L (22-30); Chloride 93 mmol/L (98-107); Estimated CRCL calculation 27 ml/min; Estimated Glomerular Filt Rate 17; Glucose 1292 mg/dL (75-110); Potassium 5.6 mmol/L (3.4-5.0); Sodium 129 mmol/L (137-145)
[2021-01-21 23:55] LABS: Alveolar/Arterial O2 Gradient 80.4 mmHg; Base Excess ABG -13.7 mEq/l (+/-2.0); Fractional Inspired Oxygen 30 %; HCO3 ABG 12.3 mEq/l (22.0-26.0); Oxygen Content ABG 19.2 %vol (16.0-22.0); Oxygen Saturation ABG 96.5 % (95.0-100.0); Oxyhemoglobin 96.4 % THb (90.0-100.0); PCO2 ABG 29.6 mmHg (35.0-45.0); PO2 ABG 98.7 mmHg (80.0-100.0); PO2 FiO2 Ratio Arterial Blood 3.29 %; Total Hemoglobin 14.1 g/dL (12.0-18.0)
[2021-01-21 23:57] LABS: Device VENTILATOR; Modified Allen's Test Pass; Site Drawn RIGHT RADIAL; pH ABG 7.236 (7.350-7.450)
[2021-01-21 23:58] LABS: Arterial Blood Gas PEEP 5 cmH2O; Arterial Blood Gas Tidal Volume 500 ml; Arterial Blood Gas Vent Mode CMV; Arterial Blood Gas Ventilator rate 20 /MIN
[2021-01-22] VITALS (70 sets, daily range): BP systolic 58–142; BP diastolic 41–98; PULSE 11–138; RESP 20–29; TEMP 36.8–39.8; O2SAT 91–100; BMI 36.1
--- NOTE | 2021-01-22 00:23 | PC.NURSE ---
Contacted patient's to update her on patient's admission.
--- NOTE | 2021-01-22 00:37 | PC.NURSE ---
VORB push 2mg of versed.
[2021-01-22] MEDS: levETIRAcetam 1000MG/NACL100ML 1,000 MG/100 ML BAG 400 MG IVPB (00:42)
[2021-01-22] MEDS: INSULIN HUMAN REGULAR (*BKC) 100 UNITS in SODIUM CHLORIDE 0.9% IV 99 ML 30 UNITS IV CONT ×2 (01:10→03:50)
--- NOTE | 2021-01-22 01:11 | ADMGEN ---
This patient, Italo Pederson, was admitted to Intensive Care Unit-3. Patient/family oriented to hospital policies and general routines including ID bracelet, bed and alarms, visiting hours, pain management, procedures, bathroom and other care routines, personal items, smoking policy, room service/diet, and visiting hours. Information on how to activate the Rapid Response Team has been discussed. Patient/Family are encouraged to report perceived risks to care and to ask questions if they do not understand what they are told or what they should do.
[2021-01-22 01:53] LABS: Anion Gap 20 mmol/L (8-16); Blood Urea Nitrogen 109 mg/dL (9-20); Calcium 8.8 mg/dL (8.4-10.2); Carbon Dioxide 16 mmol/L (22-30); Chloride 98 mmol/L (98-107); Potassium 5.6 mmol/L (3.4-5.0); Sodium 134 mmol/L (137-145)
[2021-01-22 01:54] LABS: Estimated CRCL calculation 24 ml/min; Estimated Glomerular Filt Rate 15
[2021-01-22 02:08] LABS: Glucose 926 mg/dL (75-110)
[2021-01-22] MEDS: SODIUM CHLORIDE 0.9% IV 1,000 ML 999 ML IV CONT (02:41)
[2021-01-22] MEDS: LORazepam INJ (*CRX) 2 MG/ML VIAL IV PUSH ×3 (02:42→16:27)
[2021-01-22 03:28] LABS: Anion Gap 15 mmol/L (8-16); Blood Urea Nitrogen 112 mg/dL (9-20); Calcium 8.9 mg/dL (8.4-10.2); Carbon Dioxide 20 mmol/L (22-30); Chloride 101 mmol/L (98-107); Potassium 5.4 mmol/L (3.4-5.0); Sodium 136 mmol/L (137-145)
[2021-01-22 03:39] LABS: Estimated CRCL calculation 23 ml/min; Estimated Glomerular Filt Rate 14; Glucose 723 mg/dL (75-110)
[2021-01-22] MEDS: SODIUM CHLORIDE 0.9% IV 1,000 ML 150 ML IV CONT (03:50)
[2021-01-22] MEDS: CENTRAL LINE FLUSH 10 ML IV PUSH ×4 (04:11→20:59)
[2021-01-22 04:23] LABS: Basophils Absolute Auto 0.1 K/mm3 (0.0-0.1); Basophils Percent Auto 0.3 % (0.2-1.2); Hematocrit 38.7 % (42.0-52.0); Hemoglobin 13.3 g/dL (14.0-18.0); Immature Granulocyte Absolute 0.15 K/mm3 (0.00-0.031); Lymphocytes Absolute Auto 1.44 K/mm3 (0.9-3.2); Lymphocytes Percent Auto 9.3 % (18.3-44.2); Mean Corpuscular HGB Conc 34.4 g/dl (32-36); Mean Corpuscular Hemoglobin 26.4 pg (26-34); Mean Corpuscular Volume 76.8 fl (80-100); Mean Platelet Volume 11.9 fl (7.4-10.4); Monocytes Absolute Auto 1.5 K/mm3 (0.1-0.6); Monocytes Percent Auto 9.9 % (2.6-8.5); Neutrophils Absolute Auto 12.4 K/mm3 (1.3-6.7); Neutrophils Percent Auto 79.5 % (45.5-73.1); Platelet Count Result 206 k/mm3 (150-375); Red Blood Count 5.04 M/mm3 (4.6-6.20); Red Cell Distribution Width 12.1 % (11.5-14.5); White Blood Count 15.6 K/mm3 (4.5-10.0)
[2021-01-22 04:33] LABS: Magnesium 3.9 mg/dL (1.6-2.3); Phosphorus 1.7 mg/dL (2.5-4.5)
[2021-01-22 04:35] LABS: Prothrombin Time 14.1 Seconds (11.1-14.7)
[2021-01-22 04:36] LABS: Anion Gap 12 mmol/L (8-16); Blood Urea Nitrogen 111 mg/dL (9-20); Calcium 8.9 mg/dL (8.4-10.2); Carbon Dioxide 21 mmol/L (22-30); Chloride 106 mmol/L (98-107); Glucose 562 mg/dL (75-110); Partial Thromboplastin Time 22.1 SECONDS (22.3-36.8); Potassium 4.9 mmol/L (3.4-5.0); Sodium 139 mmol/L (137-145)
[2021-01-22 04:59] LABS: Estimated CRCL calculation 24 ml/min; Estimated Glomerular Filt Rate 15
[2021-01-22 05:40] LABS: Glucose Point of Care 426 mg/dl (65-105)
[2021-01-22 05:40] LABS: Glucose Point of Care > 500 mg/dl (65-105)
[2021-01-22 06:08] LABS: Glucose Point of Care 360 mg/dl (65-105)
[2021-01-22 06:16] LABS: Glucose Point of Care > 500 mg/dl (65-105)
[2021-01-22] MEDS: NOREPINEPHRINE 8 MG/D5W 250 ML 8 MG/250 ML BAG 9.38 MG IV CONT (06:30)
[2021-01-22 06:54] LABS: Lactic Acid Reflex 2.7 mmol/L (0.7-2.1)
[2021-01-22 06:59] LABS: Glucose Point of Care 325 mg/dl (65-105)
[2021-01-22] MEDS: INSULIN HUMAN REGULAR (*BKC) 100 UNITS in SODIUM CHLORIDE 0.9% IV 99 ML 23.9 UNITS IV CONT (07:44)
[2021-01-22 07:53] LABS: Glucose Point of Care 282 mg/dl (65-105)
[2021-01-22 08:16] LABS: Alveolar/Arterial O2 Gradient 71.4 mmHg; Base Excess ABG -6.3 mEq/l (+/-2.0); Fractional Inspired Oxygen 30 %; HCO3 ABG 18.8 mEq/l (22.0-26.0); Oxygen Content ABG 19.9 %vol (16.0-22.0); Oxygen Saturation ABG 97.3 % (95.0-100.0); Oxyhemoglobin 96.3 % THb (90.0-100.0); PCO2 ABG 35.9 mmHg (35.0-45.0); PO2 ABG 100.3 mmHg (80.0-100.0); PO2 FiO2 Ratio Arterial Blood 3.34 %; Total Hemoglobin 14.6 g/dL (12.0-18.0); pH ABG 7.336 (7.350-7.450)
[2021-01-22 08:18] LABS: Arterial Blood Gas Vent Mode CMV; Arterial Blood Gas Ventilator rate 20 /MIN; Device VENTILATOR; Modified Allen's Test Pass; Site Drawn LEFT RADIAL
[2021-01-22 08:19] LABS: Arterial Blood Gas PEEP 5 cmH2O; Arterial Blood Gas Tidal Volume 500 ml
[2021-01-22] MEDS: IPRATROPIUM BR 0.02% INH SOLN 0.5 MG/2.5 ML VIAL INHALATION ×3 (08:43→19:29)
[2021-01-22] MEDS: LEVALBUTEROL NEB 1.25 MG/3 ML 0.63 MG INHALATION ×3 (08:43→19:29)
--- NOTE | 2021-01-22 09:08 | WPDCNINT ---
Assessment and Plan Assessment and plan (1) Acute respiratory failure: Code(s): J96.00 - Acute respiratory failure, unspecified whether with hypoxia or hypercapnia Status: Acute Assessment and Plan: Patient with acute respiratory failure, intubated on 01/21/2021 due to mental status changes and emesis, to protect his airway. - Chest x-ray and ABGs reviewed, currently on 30% FiO2 and peep of 5 - continue bronchodilators - sedated with fentanyl and Versed infusion, with daily sedation vacation - thick secretions from ET tube, will obtain sputum culture (2) DKA (diabetic ketoacidoses): Qualifiers: Diabetes mellitus complication detail: without coma Diabetes mellitus type: type 2 Qualified Code(s): E11.10 - Type 2 diabetes mellitus with ketoacidosis without coma Code(s): E11.10 - Type 2 diabetes mellitus with ketoacidosis without coma Status: Acute Assessment and Plan: patient presented with blood sugars of 1746, anion gap metabolic acidosis, elevated beta hydroxybutyrate. - Was given adequate amount of IV fluids, continuing maintenance IV fluids per DKA protocol - hemoglobin A1c is >14 this admission - will have perinatal educator and dietitian evaluate the patient - will transition patient to long-acting insulin and sliding scale insulin once anion gap closes and blood sugars are within the protocol limits (3) COVID-19: Code(s): U07.1 - COVID-19 Status: Acute Assessment and Plan: according the records patient was positive for COVID-19 on a home COVID-19 test kit. - will repeat SARS-CoV-2 PCR - continue droplet, airborne, contact isolation/precautions (4) Acute renal failure: Qualifiers: Acute renal failure type: unspecified Qualified Code(s): N17.9 - Acute kidney failure, unspecified Code(s): N17.9 - Acute kidney failure, unspecified Status: Acute Assessment and Plan: patient presented with acute kidney injury, lactic acidosis, hyperkalemia, likely related to possible decreased volume intake, hypotension/ATN, dehydration due to elevated sugars - patient has been adequately fluid-resuscitated 4 L fluid bolus, and continuing maintenance IV fluids per DKA protocol- - worsening creatinine and kidney function - will obtain renal ultrasound and urine lytes - to nephrology has been consulted - will maintain mean arteria l pressures > 70 mmHg for adequate renal perfusion (5) Acute hyperkalemia: Code(s): E87.5 - Hyperkalemia Status: Acute Assessment and Plan: likely related to metabolic acidosis, uremia, acute kidney injury. possible hypotension/ATN - potassium levels improved this morning - continue to monitor (6) Septic shock: Code(s): A41.9 - Sepsis, unspecified organism; R65.21 - Severe sepsis with septic shock Status: Acute Assessment and Plan: elevated WBC count, lactic acidosis, hypotension - chest x-ray and UA were clear, source of infection unknown - blood cultures have been obtained, will obtain sputum cultures - continue cefepime and vancomycin - will deescalate antibiotics as culture results are obtained. - continue Levophed as maintain mean arterial pressures > 70 mmHg (7) DVT prophylaxis: Code(s): Z29.9 - Encounter for prophylactic measures, unspecified Status: Acute Assessment and Plan: SCDs Additional Plan will update family code status: Full code critical care time spent: 51 minutes This dictation may have been done utilizing a voice recognition system. Attempts have been made to correct errors. However, there may be uncorrected grammatical, spelling, and recognition errors present. Due to a high probability of clinically significant, life threatening deterioration, the patient required my highest level of preparedness to intervene emergently and I personally spent this critical care time directly and personally managing the patient. This
[2021-01-22] MEDS: ACETAMINOPHEN 325 MG TABLET 650 MG PO (10:01)
[2021-01-22] MEDS: levETIRAcetam 500MG/NACL 100ML 500 MG/100 ML BAG 400 MG IVPB ×2 (10:01→20:55)
[2021-01-22] MEDS: CEFEPIME 1 GM in DEXTROSE 5% IN WATER 50 ML IVPB (10:04)
[2021-01-22] MEDS: KCL 20 MEQ/D5/0.45% SOD CHL 1,000 ML 150 ML IV CONT ×2 (10:05→19:41)
[2021-01-22 10:13] LABS: Alanine Aminotransferase 29 U/L (4-50); Albumin Level 3.8 g/dL (3.5-5.1); Alkaline Phosphatase 105 U/L (38-126); Anion Gap 14 mmol/L (8-16); Aspartate Amino Transferase 42 U/L (17-59); Bilirubin,Total 0.3 mg/dL (0.2-1.3); Blood Urea Nitrogen 116 mg/dL (9-20); Calcium 9.4 mg/dL (8.4-10.2); Carbon Dioxide 20 mmol/L (22-30); Chloride 112 mmol/L (98-107); Estimated CRCL calculation 20 ml/min; Estimated Glomerular Filt Rate 12; Glucose 122 mg/dL (75-110); Potassium 4.9 mmol/L (3.4-5.0); Sodium 146 mmol/L (137-145)
[2021-01-22 10:35] LABS: Glucose Point of Care 145 mg/dl (65-105)
[2021-01-22] MEDS: PANTOPRAZOLE SODIUM IV 40 MG VIAL IV PUSH ×2 (10:41→20:02)
[2021-01-22 11:06] LABS: Glucose Point of Care 144 mg/dl (65-105)
--- NOTE | 2021-01-22 11:43 | PM.IMPN ---
Progress Note: A&P Assessment and Plan (1) Hyperosmolar coma due to secondary diabetes: Code(s): E13.01 - Other specified diabetes mellitus with hyperosmolarity with coma Status: Acute Assessment and Plan: insulin p.r.n. monitor blood sugar (2) High anion gap metabolic acidosis: Code(s): E87.2 - Acidosis Status: Acute Assessment and Plan: treat hyperglycemia treat respiratory failure monitor labs and vital signs (3) Acute respiratory failure: Code(s): J96.00 - Acute respiratory failure, unspecified whether with hypoxia or hypercapnia Status: Acute Assessment and Plan: patient is intubated on the ventilator at this time (4) Acute renal failure: Qualifiers: Acute renal failure type: unspecified Qualified Code(s): N17.9 - Acute kidney failure, unspecified Code(s): N17.9 - Acute kidney failure, unspecified Status: Acute Assessment and Plan: consult nephrology (5) COVID-19: Code(s): U07.1 - COVID-19 Status: Acute Assessment and Plan: confirmatory COVID test is bending (6) History of seizure disorder: Code(s): Z86.69 - Personal history of other diseases of the nervous system and sense organs Status: Acute Assessment and Plan: consider neurology consultation and EEG Subjective Date/time seen: 01/22/21 11:43 Interval history: patient is intubated, and sedated. Exam Narrative: Exam Narrative: intubated and sedated Const: General: comfortable HENMT: Mouth: Yes moist mucous membranes Eyes: General: appearance normal, both eyes and all related structures Neck: Neck: no JVD Resp: Effort & Inspection: normal respiratory effort Cardio: Rate: regular rate GI: Inspection: non-distended Skin: General skin exam: normal color Objective Data Vital Signs Vital Signs: Vital Signs - 24 hr 01/21/21 18:45 01/21/21 18:46 01/21/21 18:57 Temperature Pulse Rate 112 H 108 H 109 H Respiratory Rate 28 H Blood Pressure 140/71 128/76 Pulse Oximetry 93 97 98 01/21/21 19:06 01/21/21 19:15 01/21/21 19:26 Temperature Pulse Rate 111 H 110 H 114 H Respiratory Rate 20 22 H Blood Pressure 128/76 118/69 Pulse Oximetry 99 01/21/21 19:54 01/21/21 20:00 01/21/21 20:37 Temperature Pulse Rate 115 H 116 H 113 H Respiratory Rate 26 H 23 H Blood Pressure Pulse Oximetry 01/21/21 20:40 01/21/21 20:45 01/21/21 21:00 Temperature Pulse Rate 115 H 113 H 116 H Respiratory Rate 24 H 19 20 Blood Pressure 142/97 H 111/91 H Pulse Oximetry 99 99 100 01/21/21 21:01 01/21/21 21:15 01/21/21 21:39 Temperature Pulse Rate 115 H 114 H 114 H Respiratory Rate 21 H 19 24 H Blood Pressure 111/91 H 111/91 H Pulse Oximetry 100 100 01/21/21 21:51 01/21/21 22:01 01/21/21 23:01 Temperature Pulse Rate 118 H 118 H 122 H Respiratory Rate Blood Pressure Pulse Oximetry 100 96 99 01/21/21 23:02 01/21/21 23:10 01/21/21 23:14 Temperature Pulse Rate 127 H 122 H 121 H Respiratory Rate 28 H 27 H 27 H Blood Pressure Pulse Oximetry 98 01/21/21 23:15 01/21/21 23:19 01/21/21 23:34 Temperature 99.5 F Pulse Rate 121 H 126 H Respiratory Rate Blood Pressure Pulse Oximetry 98 01/22/21 00:12 01/22/21 00:35 01/22/21 01:05 Temperature 98.3 F Pulse Rate 127 H 128 H 126 H Respiratory Rate 25 H 29 H Blood Pressure 112/70 Pulse Oximetry 99 01/22/21 01:10 01/22/21 01:11 01/22/21 01:12 Temperature 100 F H 100 F H 98.3 F Pulse Rate 128 H 130 H Respiratory Rate 27 H 24 H Blood Pressure 127/59 L 101/50 L Pulse Oximetry 91 100 01/22/21 01:17 01/22/21 01:18 01/22/21 01:19 Temperature Pulse Rate 128 H 125 H 125 H Respiratory Rate 25 H 26 H Blood Pressure Pulse Oximetry 96 01/22/21 01:27 01/22/21 01:28 01/22/21 02:00 Temperature 99.9 F H Pulse Rate 130 H 127 H 127 H Respiratory Rate
[2021-01-22] MEDS: MINERAL OIL/WHITE PETROLATUM OINTMENT 1 APPLIC EACH EYE ×2 (11:56→20:02)
[2021-01-22 12:05] LABS: Glucose Point of Care 176 mg/dl (65-105)
[2021-01-22 13:03] LABS: Glucose Point of Care 181 mg/dl (65-105)
[2021-01-22 13:25] LABS: Anion Gap 14 mmol/L (8-16); Blood Urea Nitrogen 112 mg/dL (9-20); Calcium 9.4 mg/dL (8.4-10.2); Carbon Dioxide 18 mmol/L (22-30); Chloride 112 mmol/L (98-107); Estimated CRCL calculation 18 ml/min; Estimated Glomerular Filt Rate 10; Glucose 170 mg/dL (75-110); Potassium 5.2 mmol/L (3.4-5.0); Sodium 144 mmol/L (137-145)
--- NOTE | 2021-01-22 14:09 | P.CONNP_ITS ---
Assessment and Plan Assessment and plan (1) DB (acute kidney injury): Code(s): N17.9 - Acute kidney failure, unspecified Status: Acute Assessment and Plan: * unclear what baseline creatinine normally runs * given his poorly controlled diabetes, he may have some underlying CKD * suspect DB due to decreased volume intake/volume depletion, hypotension, and hyperglycemia * follow-up on renal ultrasound and urine electrolytes (2) Hyperkalemia: Code(s): E87.5 - Hyperkalemia Status: Acute Assessment and Plan: * due to combination of metabolic acidosis + uremia + acute kidney injury + renal hypoperfusion * doing much better this AM * follow trend (3) Septic shock: Code(s): A41.9 - Sepsis, unspecified organism; R65.21 - Severe sepsis with septic shock Status: Acute Assessment and Plan: * criteria of leukocytosis, lactic acidosis, and hypotension along with DB/ARF * no clear source as of yet (CXR and UA unrevealing) * follow culture data * empiric antibiotics * wean off vasopressor therapy (4) Acute respiratory failure: Code(s): J96.00 - Acute respiratory failure, unspecified whether with hypoxia or hypercapnia Status: Acute Assessment and Plan: * due to altered mental status, emesis, and inability to protect airway * follow CXR and ABGs * wean when more stable (5) DKA (diabetic ketoacidoses): Qualifiers: Diabetes mellitus complication detail: without coma Diabetes mellitus type: type 2 Qualified Code(s): E11.10 - Type 2 diabetes mellitus with ketoacidosis without coma Code(s): E11.10 - Type 2 diabetes mellitus with ketoacidosis without coma Status: Acute Assessment and Plan: * admitted with hyperglycemia, high anion gap acidosis and elevated BHOB * s/p aggressive IVF resuscitation * A1c quite elevated * on insulin gtt at this time (6) COVID-19: Code(s): U07.1 - COVID-19 Status: Acute Assessment and Plan: * tested positive by home kit * rechecked here (pending) * respiratory/contact/droplet isolation for now Discussed case with Dr. Kerns -- given acute illness, the patient remains at high risk for requiring renal replacement therapy/dialysis. Will continue to follow. History of Present Illness Reason for Consult Consult date: 01/22/21 Reason for consult: acute renal failure Chief Complaint Chief complaint: DKA,Acute Renal Failure,Hyperkalemia,Coronavirus History of Present Illness Narrative: All of the information I have obtained is from review of the electronic medical record as well as discussion with the nurses/physicians involved in his care as the patient is unable to provide me with any history as he is currently intubated and on mechanical ventilation. The patient is a 36-year-old male with a past medical history as outlined below who presented to [facility] Emergency room for evaluation of altered mental status. Apparently, his brought him in as she had noted that since earlier this week, patient has been more confused and lethargic. reportedly, the patient tested positive for COVID-19 several days ago with the home test kit as lili arently there are several family members at home who have this diagnosis as well. Both prior to and after his diagnosis of COVID-19 he has been having issues and problems with drowsiness associated with nausea and vomiting. Unfortunately, the symptoms continued to progress until eventually he presented to the emergency room for evaluation.
--- NOTE | 2021-01-22 14:09 | PM.CNNEP ---
Assessment and Plan Assessment and plan (1) DB (acute kidney injury): Code(s): N17.9 - Acute kidney failure, unspecified Status: Acute Assessment and Plan: unclear what baseline creatinine normally runs given his poorly controlled diabetes, he may have some underlying CKD suspect DB due to decreased volume intake/volume depletion, hypotension, and hyperglycemia follow-up on renal ultrasound and urine electrolytes (2) Hyperkalemia: Code(s): E87.5 - Hyperkalemia Status: Acute Assessment and Plan: due to combination of metabolic acidosis + uremia + acute kidney injury + renal hypoperfusion doing much better this AM follow trend (3) Septic shock: Code(s): A41.9 - Sepsis, unspecified organism; R65.21 - Severe sepsis with septic shock Status: Acute Assessment and Plan: criteria of leukocytosis, lactic acidosis, and hypotension along with DB/ARF no clear source as of yet (CXR and UA unrevealing) follow culture data empiric antibiotics wean off vasopressor therapy (4) Acute respiratory failure: Code(s): J96.00 - Acute respiratory failure, unspecified whether with hypoxia or hypercapnia Status: Acute Assessment and Plan: due to altered mental status, emesis, and inability to protect airway follow CXR and ABGs wean when more stable (5) DKA (diabetic ketoacidoses): Qualifiers: Diabetes mellitus complication detail: without coma Diabetes mellitus type: type 2 Qualified Code(s): E11.10 - Type 2 diabetes mellitus with ketoacidosis without coma Code(s): E11.10 - Type 2 diabetes mellitus with ketoacidosis without coma Status: Acute Assessment and Plan: admitted with hyperglycemia, high anion gap acidosis and elevated BHOB s/p aggressive IVF resuscitation A1c quite elevated on insulin gtt at this time (6) COVID-19: Code(s): U07.1 - COVID-19 Status: Acute Assessment and Plan: tested positive by home kit rechecked here (pending) respiratory/contact/droplet isolation for now Discussed case with Dr. Kerns -- given acute illness, the patient remains at high risk for requiring renal replacement therapy/dialysis. Will continue to follow. History of Present Illness Reason for Consult Consult date: 01/22/21 Reason for consult: acute renal failure Chief Complaint Chief complaint: DKA,Acute Renal Failure,Hyperkalemia,Coronavirus History of Present Illness Narrative: All of the information I have obtained is from review of the electronic medical record as well as discussion with the nurses/physicians involved in his care as the patient is unable to provide me with any history as he is currently intubated and on mechanical ventilation. The patient is a 36-year-old male with a past medical history as outlined below who presented to [facility] Emergency room for evaluation of altered mental status. Apparently, his brought him in as she had noted that since earlier this week, patient has been more confused and lethargic. reportedly, the patient tested positive for COVID-19 several days ago with the home test kit as apparently there are several family members at home who have this diagnosis as well. Both prior to and after his diagnosis of COVID-19 he has been having issues and problems with drowsiness associated with nausea and vomiting. Unfortunately, the symptoms continued to progress until eventually he presented to the emergency room for evaluation. Workup and evaluation emergency room demonstrated the patient to be quite lethargic and at times combative. Routine blood test demonstrated shine id abnormalities including hyperglycemia with a glucose of 1746, acidosis both by ABG as well as by chemistry, hyponatremia, severe hyperkalemia with a potassium of 8.4, lactic acidosis, and an elevated beta hydroxybutyrate. He was aggressively fluid resuscitated b
[2021-01-22] MEDS: INSULIN HUMAN REGULAR (*BKC) 100 UNITS in SODIUM CHLORIDE 0.9% IV 99 ML 8.5 UNITS IV CONT (15:42)
[2021-01-22 15:53] LABS: Glucose Point of Care 135 mg/dl (65-105)
[2021-01-22 15:53] LABS: Glucose Point of Care 138 mg/dl (65-105)
[2021-01-22 15:53] LABS: Glucose Point of Care 158 mg/dl (65-105)
[2021-01-22 16:56] LABS: Glucose Point of Care 112 mg/dl (65-105)
[2021-01-22 17:14] LABS: Anion Gap 16 mmol/L (8-16); Blood Urea Nitrogen 116 mg/dL (9-20); Calcium 9.5 mg/dL (8.4-10.2); Carbon Dioxide 16 mmol/L (22-30); Chloride 113 mmol/L (98-107); Estimated CRCL calculation 16 ml/min; Estimated Glomerular Filt Rate 9; Glucose 121 mg/dL (75-110); Potassium 4.4 mmol/L (3.4-5.0); Sodium 145 mmol/L (137-145)
--- NOTE | 2021-01-22 17:33 | PC.NURSE ---
Addendum entered by Shelby Yao RN 01/22/21 17:35: Will continue to monitor closely. Original Note: Patient reached temperature of 98.8 at 1700, cooling blanket removed.
[2021-01-22] MEDS: NOREPINEPHRINE 8 MG/D5W 250 ML 8 MG/250 ML BAG 33.75 MG IV CONT (18:21)
[2021-01-22 18:55] LABS: Glucose Point of Care 151 mg/dl (65-105)
[2021-01-22 20:19] LABS: Anion Gap 16 mmol/L (8-16); Blood Urea Nitrogen 111 mg/dL (9-20); Calcium 9.4 mg/dL (8.4-10.2); Carbon Dioxide 16 mmol/L (22-30); Chloride 114 mmol/L (98-107); Estimated CRCL calculation 17 ml/min; Estimated Glomerular Filt Rate 10; Glucose 182 mg/dL (75-110); Potassium 4.2 mmol/L (3.4-5.0); Sodium 146 mmol/L (137-145)
[2021-01-22 20:38] LABS: Creatinine Urine 114.7 mg/dL
[2021-01-22 20:40] LABS: Potassium Urine Random 34.4 meq/L; Sodium Urine Random 37 meq/L
[2021-01-22 20:42] LABS: Eosinophil Urine None Seen % (None Seen)
[2021-01-22 21:22] LABS: Glucose Point of Care 199 mg/dl (65-105)
[2021-01-22 21:22] LABS: Glucose Point of Care 176 mg/dl (65-105)
[2021-01-22] MEDS: INSULIN HUMAN REGULAR (*BKC) 100 UNITS in SODIUM CHLORIDE 0.9% IV 99 ML 17.9 UNITS IV CONT (22:04)
[2021-01-22 22:11] LABS: Glucose Point of Care 198 mg/dl (65-105)
[2021-01-22 23:14] LABS: Glucose Point of Care 192 mg/dl (65-105)
[2021-01-23] VITALS (60 sets, daily range): BP systolic 91–132; BP diastolic 51–92; PULSE 11–126; RESP 20–28; TEMP 36–39.8; O2SAT 90–99; BMI 38.4
[2021-01-23 00:23] LABS: Glucose Point of Care 204 mg/dl (65-105)
[2021-01-23 00:47] LABS: Anion Gap 13 mmol/L (8-16); Blood Urea Nitrogen 110 mg/dL (9-20); Calcium 9.4 mg/dL (8.4-10.2); Carbon Dioxide 18 mmol/L (22-30); Chloride 115 mmol/L (98-107); Estimated CRCL calculation 18 ml/min; Estimated Glomerular Filt Rate 10; Glucose 181 mg/dL (75-110); Sodium 146 mmol/L (137-145)
[2021-01-23] MEDS: LEVALBUTEROL NEB 1.25 MG/3 ML 0.63 MG INHALATION ×4 (01:47→20:46)
[2021-01-23] MEDS: IPRATROPIUM BR 0.02% INH SOLN 0.5 MG/2.5 ML VIAL INHALATION ×4 (01:48→20:47)
[2021-01-23] MEDS: KCL 20 MEQ/D5/0.45% SOD CHL 1,000 ML 150 ML IV CONT ×4 (02:34→21:37)
[2021-01-23] MEDS: INSULIN HUMAN REGULAR (*BKC) 100 UNITS in SODIUM CHLORIDE 0.9% IV 99 ML 12.6 UNITS IV CONT ×2 (04:00→12:09)
[2021-01-23 04:16] LABS: Hematocrit 36.2 % (42.0-52.0); Hemoglobin 12.1 g/dL (14.0-18.0); Mean Corpuscular HGB Conc 33.4 g/dl (32-36); Mean Corpuscular Hemoglobin 26.1 pg (26-34); Mean Platelet Volume 11.7 fl (7.4-10.4); Platelet Count Result 133 k/mm3 (150-375); Red Blood Count 4.64 M/mm3 (4.6-6.20); Red Cell Distribution Width 12.6 % (11.5-14.5); White Blood Count 12.1 K/mm3 (4.5-10.0)
[2021-01-23 04:17] LABS: Glucose Point of Care 150 mg/dl (65-105)
[2021-01-23 04:29] LABS: Glucose Point of Care 168 mg/dl (65-105)
[2021-01-23 04:29] LABS: Glucose Point of Care 162 mg/dl (65-105)
[2021-01-23 04:33] LABS: INR 1.1; Prothrombin Time 14.7 Seconds (11.1-14.7)
[2021-01-23 04:39] LABS: Alanine Aminotransferase 28 U/L (4-50); Albumin Level 3.4 g/dL (3.5-5.1); Alkaline Phosphatase 88 U/L (38-126); Anion Gap 11 mmol/L (8-16); Aspartate Amino Transferase 53 U/L (17-59); Bilirubin,Total 0.2 mg/dL (0.2-1.3); Blood Urea Nitrogen 108 mg/dL (9-20); Calcium 9.5 mg/dL (8.4-10.2); Carbon Dioxide 19 mmol/L (22-30); Chloride 116 mmol/L (98-107); Estimated CRCL calculation 17 ml/min; Estimated Glomerular Filt Rate 10; Glucose 159 mg/dL (75-110); Lactic Acid Reflex 1.3 mmol/L (0.7-2.1); Magnesium 3.9 mg/dL (1.6-2.3); Phosphorus 4.2 mg/dL (2.5-4.5); Potassium 3.9 mmol/L (3.4-5.0); Sodium 146 mmol/L (137-145)
[2021-01-23 05:01] LABS: Alveolar/Arterial O2 Gradient 137.1 mmHg; Base Excess ABG -8.4 mEq/l (+/-2.0); Carboxyhemoglobin 0.3 % THb (0-2.0); Fractional Inspired Oxygen 35 %; HCO3 ABG 17.3 mEq/l (22.0-26.0); Methemoglobin ABG 0.4 %THb (0-1.5); Oxygen Content ABG 17.4 %vol (16.0-22.0); Oxygen Saturation ABG 92.4 % (95.0-100.0); Oxyhemoglobin 92.8 % THb (90.0-100.0); PCO2 ABG 36.5 mmHg (35.0-45.0); Reduced Hemoglobin 6.5 %THb (0-5.0); Total Hemoglobin 13.3 g/dL (12.0-18.0); pH ABG 7.294 (7.350-7.450)
[2021-01-23 05:02] LABS: Arterial Blood Gas Vent Mode CMV; Arterial Blood Gas Ventilator rate 20 /MIN; Device VENTILATOR; Modified Allen's Test Pass; Site Drawn RIGHT RADIAL
[2021-01-23 05:03] LABS: Arterial Blood Gas PEEP 5 cmH2O; Arterial Blood Gas Tidal Volume 500 ml
[2021-01-23 05:09] LABS: Thyroid Stimulating Hormone 0.193 uIU/mL (0.465-4.680)
[2021-01-23 05:11] LABS: Hepatitis B Surface Antigen Negative (Negative)
[2021-01-23] MEDS: CENTRAL LINE FLUSH 10 ML IV PUSH ×7 (05:11→19:50)
[2021-01-23 05:17] LABS: HAV RESULT Negative (Negative); Hepatitis B Core IgM Result Negative (Negative)
[2021-01-23 05:31] LABS: Hepatitis B Surface Anti Res Positive; Hepatitis C Virus Antibody Negative (Negative)
[2021-01-23 06:25] LABS: Glucose Point of Care 163 mg/dl (65-105)
[2021-01-23 06:25] LABS: Glucose Point of Care 161 mg/dl (65-105)
--- NOTE | 2021-01-23 07:20 | P.CDI_ITS ---
CDI Query Clarification Request -On arrival: blood sugar- 1746, pH 7.016 and HCO3 5.5 per ABG's, 1+ ketones in urine, anion gap 34. -Documentation that patient was uncooperative, pulling out IV's, yelling, attempting to get out of bed in ED. Pt was then intubated and sedated. -DKA documented by EDP, Dr Kerns and Dr Gorman -Hyperosmolar coma due to secondary diabetes documented by hospitalist -These are different/conflicting diagnosis codes Please clarify which diagnosis most accurately reflects patient's condition: * DKA * Hyperosmolar coma due to secondary diabetes * Unable to determine
[2021-01-23] MEDS: CEFEPIME 1 GM in DEXTROSE 5% IN WATER 50 ML IVPB (08:21)
[2021-01-23] MEDS: MINERAL OIL/WHITE PETROLATUM OINTMENT 1 APPLIC EACH EYE ×2 (08:22→19:45)
[2021-01-23] MEDS: levETIRAcetam 500MG/NACL 100ML 500 MG/100 ML BAG 400 MG IVPB ×2 (08:22→19:54)
[2021-01-23] MEDS: PANTOPRAZOLE SODIUM IV 40 MG VIAL IV PUSH ×2 (08:30→19:50)
[2021-01-23 08:40] LABS: Glucose Point of Care 148 mg/dl (65-105)
[2021-01-23 08:57] LABS: Anion Gap 12 mmol/L (8-16); Blood Urea Nitrogen 111 mg/dL (9-20); Calcium 9.5 mg/dL (8.4-10.2); Carbon Dioxide 18 mmol/L (22-30); Chloride 117 mmol/L (98-107); Estimated CRCL calculation 18 ml/min; Estimated Glomerular Filt Rate 10; Glucose 163 mg/dL (75-110); Sodium 147 mmol/L (137-145)
--- NOTE | 2021-01-23 09:33 | WPDINTPN ---
Progress Note: A&P Assessment and Plan (1) Acute respiratory failure: Code(s): J96.00 - Acute respiratory failure, unspecified whether with hypoxia or hypercapnia Status: Acute Assessment and Plan: Patient with acute respiratory failure, intubated on 01/21/2021 due to mental status changes and emesis, to protect his airway. - Chest x-ray and ABGs reviewed, currently on 30% FiO2 and peep of 5. Will increase the rate to 22 - continue bronchodilators - sedated with fentanyl and Versed infusion, with daily sedation vacation - thick secretions from ET tube, will obtain sputum culture (2) DKA (diabetic ketoacidoses): Qualifiers: Diabetes mellitus complication detail: without coma Diabetes mellitus type: type 2 Qualified Code(s): E11.10 - Type 2 diabetes mellitus with ketoacidosis without coma Code(s): E11.10 - Type 2 diabetes mellitus with ketoacidosis without coma Status: Acute Assessment and Plan: patient presented with blood sugars of 1746, anion gap metabolic acidosis, elevated beta hydroxybutyrate. - Was given adequate amount of IV fluids, continuing maintenance IV fluids per DKA protocol - hemoglobin A1c is >14 this admission - will have special educator and dietitian evaluate the patient - will transition patient to long-acting insulin and sliding scale insulin once anion gap closes and blood sugars are within the protocol limits (3) COVID-19: Code(s): U07.1 - COVID-19 Status: Acute Assessment and Plan: according the records patient was positive for COVID-19 on a home COVID-19 test kit. - will repeat SARS-CoV-2 PCR - continue droplet, airborne, contact isolation/precautions (4) Acute renal failure: Qualifiers: Acute renal failure type: unspecified Qualified Code(s): N17.9 - Acute kidney failure, unspecified Code(s): N17.9 - Acute kidney failure, unspecified Status: Acute Assessment and Plan: patient presented with acute kidney injury, lactic acidosis, hyperkalemia, likely related to possible decreased volume intake, hypotension/ATN, dehydration due to elevated sugars - patient has been adequately fluid-resuscitated 4 L fluid bolus, and continuing maintenance IV fluids per DKA protocol- - patient started to put out urine, creatinine improving slowly - will continue to monitor urine output to later today, if he does not have much urine output will place hemodialysis catheter and dialyze the patient - renal ultrasound was unremarkable, no stones, masses or hydronephrosis - appreciate nephrology evaluation and recommendation - will maintain mean arteria l pressures > 70 mmHg for adequate renal perfusion (5) Acute hyperkalemia: Code(s): E87.5 - Hyperkalemia Status: Acute Assessment and Plan: likely related to metabolic acidosis, uremia, acute kidney injury. possible hypotension/ATN - potassium levels normalized - continue to monitor (6) Septic shock: Code(s): A41.9 - Sepsis, unspecified organism; R65.21 - Severe sepsis with septic shock Status: Acute Assessment and Plan: elevated WBC count, lactic acidosis, hypotension - chest x-ray and UA were clear, source of infection unknown - blood cultures have been obtained, will obtain sputum cultures - continue cefepime and vancomycin - will deescalate antibiotics as culture results are obtained. - continue Levophed as maintain mean arterial pressures > 70 mmHg (7) DVT prophylaxis: Code(s): Z29.9 - Encounter for prophylactic measures, unspecified Status: Acute Assessment and Plan: SCDs Additional Plan discussed with Sarah, significant other and updated her with patient's condition and plan of care. I answered all questions. I did discuss with her regarding the need for dialysis if Necessary code status: Full code critical care time spent: 35 minutes This dictation may have been done utilizing a voice
[2021-01-23] MEDS: NOREPINEPHRINE 8 MG/D5W 250 ML 8 MG/250 ML BAG 3.75 MG IV CONT ×2 (10:30→13:52)
[2021-01-23] MEDS: FUROSEMIDE INJ 100 MG/10 ML VIAL 80 MG IV PUSH (10:36)
--- NOTE | 2021-01-23 10:47 | PCDIET ---
Discussed possible need for dialysis during rounds. Patient NPO for now. Recommend enteral feeds later today (either after dialysis cath is placed or deemed unnecessary). -Recommend Nepro beginning at 20mL/hr and advancing by 10mL/hr every 8 hours, as tolerated, to goal of 50mL/hr which would provide 1980kcal, 89g protein and 799mL free water over 22 hours/day. Suggest 30mL water flush every 4 hours. -If urine output improves, could also consider Glucerna 1.2 beginning at 20mL/hr and advancing by 10mL/hr every 8 hours, as tolerated, toward goal of 75mL/hr. Given 22 hours/day, this would provide 1980kcal, 99g protein and 1328mL free water. Suggest 30mL water flush every 4 hours and tapering IV fluids as medically appropriate.
--- NOTE | 2021-01-23 11:57 | PM.IMPN ---
Progress Note: A&P Assessment and Plan (1) Hyperosmolar coma due to secondary diabetes: Code(s): E13.01 - Other specified diabetes mellitus with hyperosmolarity with coma Status: Acute Assessment and Plan: insulin p.r.n. monitor blood sugar (2) High anion gap metabolic acidosis: Code(s): E87.2 - Acidosis Status: Acute Assessment and Plan: treat hyperglycemia treat respiratory failure monitor labs and vital signs (3) Acute respiratory failure: Code(s): J96.00 - Acute respiratory failure, unspecified whether with hypoxia or hypercapnia Status: Acute Assessment and Plan: patient is intubated on the ventilator at this time (4) Acute renal failure: Qualifiers: Acute renal failure type: unspecified Qualified Code(s): N17.9 - Acute kidney failure, unspecified Code(s): N17.9 - Acute kidney failure, unspecified Status: Acute Assessment and Plan: consult nephrology (5) COVID-19: Code(s): U07.1 - COVID-19 Status: Acute Assessment and Plan: confirmatory COVID test is pending (6) History of seizure disorder: Code(s): Z86.69 - Personal history of other diseases of the nervous system and sense organs Status: Acute Assessment and Plan: consider neurology consultation and EEG Subjective Date/time seen: 01/23/21 11:57 Interval history: patient is intubated, and sedated. patient off Levophed, although blood pressure is soft at this time. Exam Narrative: Exam Narrative: intubated and sedated Const: General: comfortable HENMT: Mouth: Yes moist mucous membranes Eyes: General: appearance normal, both eyes and all related structures Neck: Neck: no JVD Resp: Effort & Inspection: normal respiratory effort Cardio: Rate: regular rate GI: Inspection: non-distended Skin: General skin exam: normal color Objective Data Vital Signs Vital Signs: Vital Signs - 24 hr 01/22/21 12:00 01/22/21 14:00 01/22/21 14:30 Temperature 102.4 F H Pulse Rate 137 H 135 H 134 H Respiratory Rate 20 20 Blood Pressure 104/58 L 105/54 L 73/47 L Pulse Oximetry 95 95 01/22/21 14:33 01/22/21 14:41 01/22/21 14:44 Temperature Pulse Rate 129 H 127 H 128 H Respiratory Rate 22 H 23 H Blood Pressure Pulse Oximetry 93 01/22/21 15:30 01/22/21 15:43 01/22/21 16:00 Temperature 103.7 F H 103.3 F H Pulse Rate 124 H 122 H Respiratory Rate 20 Blood Pressure 58/41 L 62/51 L Pulse Oximetry 96 01/22/21 16:03 01/22/21 16:18 01/22/21 16:27 Temperature Pulse Rate 121 H Respiratory Rate Blood Pressure 62/51 L 87/54 L 87/54 L Pulse Oximetry 01/22/21 16:58 01/22/21 17:00 01/22/21 18:00 Temperature 98.8 F 99.8 F H Pulse Rate 112 H 110 H Respiratory Rate 20 Blood Pressure 142/90 H Pulse Oximetry 98 98 01/22/21 18:21 01/22/21 18:28 01/22/21 18:30 Temperature Pulse Rate 111 H 111 H 111 H Respiratory Rate 20 20 Blood Pressure 130/91 H 142/90 H Pulse Oximetry 01/22/21 18:45 01/22/21 18:58 01/22/21 19:29 Temperature Pulse Rate 111 H 112 H Respiratory Rate Blood Pressure 122/80 120/80 133/93 H Pulse Oximetry 01/22/21 19:30 01/22/21 19:39 01/22/21 19:40 Temperature Pulse Rate 111 H 113 H 113 H Respiratory Rate 21 H 20 Blood Pressure Pulse Oximetry 96 01/22/21 20:00 01/22/21 20:54 01/22/21 21:00 Temperature 99.4 F 99.2 F Pulse Rate 112 H 109 H 110 H Respiratory Rate 20 20 Blood Pressure 120/82 111/83 116/98 H Pulse Oximetry 97 98 01/22/21 21:15 01/22/21 22:00 01/22/21 22:06 Temperature 99.2 F Pulse Rate 109 H 111 H 111 H Respiratory Rate 20 Blood Pressure 124/88 130/81 130/81 Pulse Oximetry 97 01/22/21 23:02 01/22/21 23:10 01/22/21 23:28 Temperature Pulse Rate 111 H 110 H 110 H Respiratory Rate 20 Blood Pressure 119/76 Pulse Oximetry 97 97 01/23/21 00:00 01/23/21
[2021-01-23] MEDS: ROCURONIUM BROMIDE 50 MG/5 ML VIAL IV PUSH (13:52)
[2021-01-23] MEDS: MIDAZOLAM HCL (*CRX) 2 MG/2 ML VIAL IV PUSH (13:52)
[2021-01-23] MEDS: MIDAZOLAM 100MG/NS 100ML(*CRX) 100 MG/100 ML BAG IV CONT (14:00)
--- NOTE | 2021-01-23 14:08 | P.PCNBED_ITS ---
Procedures Hemodialysis Catheter Placement Left IJ: Discussed w/ patient and/or surrogate, the non-emergent placement of a hemodialysis catheter, including it's clinincal necessity/indication & associated potential risks & complications.: Yes The patient and/or surrogate understand(s) and acknowledge(s) the need to proceed with hemodialysis catheter insertion as an important element of the patient's clinical management.: Yes HD Catheter Date: 01/23/21 HD Catheter Time: 13:42 Pre-procedural Time-Out was completed immediately before starting the p rocedure and confirmed: Patient Identification, Site, Procedure, Patient Position and the Availability of Requisite Equipment.: Yes Patient Position: supine Patient Placed on Monitor/Pulse Ox: Yes Provider Prep: mask, sterile gown, sterile gloves, Max. sterile barrier precautions, cap and hand hygiene Hemodialysis Catheter Prep: Chlorhexidine scrub and sterile full body sheet applied Local Anesthesia Used: lidocaine 1% Amount of anesthesia used (mL): 4 Ultrasound Used for Placement: Yes Hemodialysis Catheter Inserted: double Post Procedure: sutured in place, good blood return, all ports aspirated, flushed, capped, transparent dressing, hemostatic product, antimicrobial product, securement product and aseptic technique maintained throughout procedure Post Procedure X-Ray: tip of catheter in good position Patient Tolerated Procedure: well Complications: none Additional Comments: STERILE GEL AND STERILE ULTRASOUND PROBE COVER WAS USED
[2021-01-23 16:19] LABS: Glucose Point of Care 148 mg/dl (65-105)
[2021-01-23 16:19] LABS: Glucose Point of Care 162 mg/dl (65-105)
[2021-01-23 16:19] LABS: Glucose Point of Care 162 mg/dl (65-105)
[2021-01-23 16:19] LABS: Glucose Point of Care 151 mg/dl (65-105)
[2021-01-23 16:19] LABS: Glucose Point of Care 158 mg/dl (65-105)
[2021-01-23 16:19] LABS: Glucose Point of Care 128 mg/dl (65-105)
[2021-01-23 16:19] LABS: Glucose Point of Care 150 mg/dl (65-105)
--- NOTE | 2021-01-23 17:25 | P.PNNP_ITS ---
Progress Note: A&P Assessment and Plan (1) DB (acute kidney injury): Code(s): N17.9 - Acute kidney failure, unspecified Status: Acute Assessment and Plan: * unclear what baseline creatinine normally runs * given his poorly controlled diabetes, he may have some underlying CKD * suspect DB due to decreased volume intake/volume depletion, hypotension, and hyperglycemia * proceed with dialysis for clearance of uremic toxins, correction of acidosis, and electrolyte control * renal ultrasound normal and urine electrolytes c/w pre-renal azotemia * follow trend of repeat labs and UOP in the hopes of renal recovery (2) Hyperkalemia: Code(s): E87.5 - Hyperkalemia Status: Acute Assessment and Plan: * due to combination of metabolic acidosis + uremia + acute kidney injury + renal hypoperfusion * doing much better * follow trend (3) Septic shock: Code(s): A41.9 - Sepsis, unspecified organism; R65.21 - Severe sepsis with septic shock Status: Acute Assessment and Plan: * criteria of leukocytosis, lactic acidosis, and hypotension along with DB/ARF * no clear source as of yet (CXR and UA unrevealing) * follow culture data * empiric antibiotics * wean off vasopressor therapy (4) Acute respiratory failure: Code(s): J96.00 - Acute respiratory failure, unspecified whether with hypoxia or hypercapnia Status: Acute Assessment and Plan: * due to altered mental status, emesis, and inability to protect airway * follow CXR and ABGs * wean when more stable (5) DKA (diabetic ketoacidoses): Qualifiers: Diabetes mellitus complication detail: without coma Diabetes mellitus type: type 2 Qualified Code(s): E11.10 - Type 2 diabetes mellitus with ketoacidosis without coma Code(s): E11.10 - Type 2 diabetes mellitus with ketoacidosis without coma Status: Acute Assessment and Plan: * admitted with hyperglycemia, high anion gap acidosis and elevated BHOB * s/p aggressive IVF resuscitation * A1c quite elevated * on insulin gtt at this time (6) COVID-19: Code(s): U07.1 - COVID-19 Status: Acute Assessment and Plan: * tested positive by home kit * rechecked here (pending) * respiratory/contact/droplet isolation for now Will continue to follow. Subjective Date/time seen: 01/23/21 17:25 Attempting dialysis at the time of my visit but his temporary HD catheter is not working very well (poor blood flows) complicated by his constant head movement as well; machine keeps alarming any time treatment is initiated; HD nurse will try to troubleshoot but may not be able to do his treatment. Exam Narrative: Exam Narrative: General: WD/WN AA male intubated Heart: normal S1 and S2; no rub Lungs: clear to auscultation Abdomen: soft, nontender, nondistended, positive bowel sounds Extremities: no cyanosis or clubbing; no edema Skin: warm and dry Objective Data Vital Signs Vital Signs: Vital Signs Temp Pulse Resp BP Pulse Ox 01/23/21 16:50 116 H 92 01/23/21 16:00 37.5 C 119 H 22 H 119/64 91 01/23/21 15:55 119 H 28 H 01/23/21 14:14 118 H 01/23/21 14:05 119 H 26 H 01/23/21 14:04 119 H 90 01/23/21 14:00 120 H 26 H 131/62 95 01/23/21 13:52 119 H 125/51 L 01/23/21 12:35 117 H 22 H 01/23/21 12:20 116 H
--- NOTE | 2021-01-23 17:25 | PM.PNNEP ---
Progress Note: A&P Assessment and Plan (1) DB (acute kidney injury): Code(s): N17.9 - Acute kidney failure, unspecified Status: Acute Assessment and Plan: unclear what baseline creatinine normally runs given his poorly controlled diabetes, he may have some underlying CKD suspect DB due to decreased volume intake/volume depletion, hypotension, and hyperglycemia proceed with dialysis for clearance of uremic toxins, correction of acidosis, and electrolyte control renal ultrasound normal and urine electrolytes c/w pre-renal azotemia follow trend of repeat labs and UOP in the hopes of renal recovery (2) Hyperkalemia: Code(s): E87.5 - Hyperkalemia Status: Acute Assessment and Plan: due to combination of metabolic acidosis + uremia + acute kidney injury + renal hypoperfusion doing much better follow trend (3) Septic shock: Code(s): A41.9 - Sepsis, unspecified organism; R65.21 - Severe sepsis with septic shock Status: Acute Assessment and Plan: criteria of leukocytosis, lactic acidosis, and hypotension along with DB/ARF no clear source as of yet (CXR and UA unrevealing) follow culture data empiric antibiotics wean off vasopressor therapy (4) Acute respiratory failure: Code(s): J96.00 - Acute respiratory failure, unspecified whether with hypoxia or hypercapnia Status: Acute Assessment and Plan: due to altered mental status, emesis, and inability to protect airway follow CXR and ABGs wean when more stable (5) DKA (diabetic ketoacidoses): Qualifiers: Diabetes mellitus complication detail: without coma Diabetes mellitus type: type 2 Qualified Code(s): E11.10 - Type 2 diabetes mellitus with ketoacidosis without coma Code(s): E11.10 - Type 2 diabetes mellitus with ketoacidosis without coma Status: Acute Assessment and Plan: admitted with hyperglycemia, high anion gap acidosis and elevated BHOB s/p aggressive IVF resuscitation A1c quite elevated on insulin gtt at this time (6) COVID-19: Code(s): U07.1 - COVID-19 Status: Acute Assessment and Plan: tested positive by home kit rechecked here (pending) respiratory/contact/droplet isolation for now Will continue to follow. Subjective Date/time seen: 01/23/21 17:25 Attempting dialysis at the time of my visit but his temporary HD catheter is not working very well (poor blood flows) complicated by his constant head movement as well; machine keeps alarming any time treatment is initiated; HD nurse will try to troubleshoot but may not be able to do his treatment. Exam Narrative: Exam Narrative: General: WD/WN AA male intubated Heart: normal S1 and S2; no rub Lungs: clear to auscultation Abdomen: soft, nontender, nondistended, positive bowel sounds Extremities: no cyanosis or clubbing; no edema Skin: warm and dry Objective Data Vital Signs Vital Signs: Vital Signs Temp Pulse Resp BP Pulse Ox 01/23/21 16:50 116 H 92 01/23/21 16:00 37.5 C 119 H 22 H 119/64 91 01/23/21 15:55 119 H 28 H 01/23/21 14:14 118 H 01/23/21 14:05 119 H 26 H 01/23/21 14:04 119 H 90 01/23/21 14:00 120 H 26 H 131/62 95 01/23/21 13:52 119 H 125/51 L 01/23/21 12:35 117 H 22 H 01/23/21 12:20 116 H 22 H 01/23/21 12:00 37.3 C 116 H 22 H 110/67 94 01/23/21 10:42 113 H 22 H 01/23/21 10:32 114 H 96 01/23/21 10:30 115 H 110/67 01/23/21 10:20 113 H 22 H 01/23/21 10:00 11 L 22 H 91/55 L 95 01/23/21 08:00 37.2 C 112 H 20 121/68 97 01/23/21 07:52 112 H 20 01/23/21 07:42 112 H 20 01/23/21 07:41 112 H 97 01/23/21 06:20 110 H 132/66 01/23/21 06:00 37.1 C 111 H 20 127/72 96 01/23/21 05:17 111 H 130/73 01/23/21 05:00 37.0 C 108 H 21 H 129/64 97 01/23/21 04:58 109 H 20 01/23/21 04:57 109 H 20 01/23
[2021-01-23 18:16] LABS: Anion Gap 11 mmol/L (8-16); Blood Urea Nitrogen 107 mg/dL (9-20); Calcium 9.5 mg/dL (8.4-10.2); Carbon Dioxide 18 mmol/L (22-30); Chloride 117 mmol/L (98-107); Estimated CRCL calculation 18 ml/min; Estimated Glomerular Filt Rate 11; Glucose 145 mg/dL (75-110); Potassium 4.2 mmol/L (3.4-5.0); Sodium 146 mmol/L (137-145)
[2021-01-23 18:16] LABS: SARS-CoV-2 RNA PCR Positive
[2021-01-23] MEDS: FENTANYL 2,500MCG/NS250ML(*CRX 2,500 MCG/250 ML BAG 10 MCG IV CONT (18:45)
[2021-01-23] MEDS: LORazepam INJ (*CRX) 2 MG/ML VIAL IV PUSH ×2 (19:30→23:14)
[2021-01-23] MEDS: INSULIN HUMAN REGULAR (*BKC) 100 UNITS in SODIUM CHLORIDE 0.9% IV 99 ML 7.7 UNITS IV CONT (19:38)
--- NOTE | 2021-01-23 20:56 | PC.NURSE ---
Updated Dr. Kerns regarding 850 urine output post catheter flush. Flush catheter q4H. Temperature down post IV tylenol. Dr. kerns aware of unable to do dialysis. Per Dr. Rodas will try tomorrow.
[2021-01-23 21:46] LABS: Glucose Point of Care 120 mg/dl (65-105)
[2021-01-23 21:46] LABS: Glucose Point of Care 126 mg/dl (65-105)
[2021-01-23 21:46] LABS: Glucose Point of Care 153 mg/dl (65-105)
[2021-01-23 21:46] LABS: Glucose Point of Care 115 mg/dl (65-105)
[2021-01-24] VITALS (43 sets, daily range): BP systolic 90–146; BP diastolic 51–82; PULSE 110–130; RESP 22–28; TEMP 34.3–38.4; O2SAT 91–97
--- NOTE | 2021-01-24 | ECHO_ITS ---
Patient Info Name: Italo Pederson Age: 36 years : 1985 Gender: Male Ht: 72 in Wt: 258 lbs BSA: 2.48 m2 HR: 125 bpm BP: 104 / 57 mmHg Heart Rhythm: Tachycardia, Sinus Rhythm Technical Quality: Good Exam Date: 01/24/2021 10:00 AM Exam Location: [facility] Card Pulmonary Patient Status: Inpatient Admit Date: 01/21/2021 Staff Ordering Physician: Cristhian Lobato MD Audit Manager: Monica Bowen RDCS Attending Provider: Seven Min MD Referring Physician: Cheryle NEVAREZ; Exam Type: CA echo doppler color flow Study Info Indications - RENAL FAILURE Complete two-dimensional, color flow and Doppler transthoracic echocardiogram is performed. Summary 1. Complete two-dimensional, color flow and Doppler transthoracic echocardiogram is performed. 2. Technically difficult study with limited views. Regional wall motion assessment limited due to poor endomyocardial border definition. 3. Left ventricular chamber dimension is normal. 4. Left ventricular systolic function is normal, estimated at 55-60%. 5. Right ventricular systolic function is normal. TAPSE 1.7. 6. Interatrial septum thin and hypermobile. No evidence of R to L shunt with injection of agitated saline. 7. There is trace mitral valve regurgitation. 8. There is no aortic valve stenosis. Left Ventricle Left ventricular chamber dimension is normal. Left ventricular systolic function is normal, estimated at 55-60%. There is no increased left ventricular wall thickness. The left ventricular diastolic function is normal. Technically difficult study with limited views. Regional wall motion assessment limited due to poor endomyocardial border definition. Right Ventricle Right ventricular chamber dimension is not well visualized. Right ventricular systolic function is normal. TAPSE 1.7. Left Atria Left atrial chamber dimension is normal. Right Atria Right atrial chamber dimension is normal. Atrial Septum Interatrial septum thin and hypermobile. No evidence of R to L shunt with injection of agitated saline. Aortic Valve The aortic valve is not well visualized. There is no aortic valve stenosis. There is no aortic valve regurgitation. Pulmonic Valve The pulmonic valve is not well visualized. Mitral Valve The mitral valve has thickened leaflets. There is trace mitral valve regurgitation. Tricuspid Valve The tricuspid valve leaflets are normal. There is trace tricuspid valve regurgitation. Unable to estimate PA systolic pressure due to poor spectral resolution of tricuspid regurgitant jet velocity. Pericardium/Pleural The pericardium appears not well visualized. There is no pericardial effusion. Inferior Vena Cava Normal inferior vena cava with >50% collapse upon inspiration consistent with normal right atrial pressure, 5 mmHg. Aorta The aortic root size at the sinus of Valsalva is normal. Left Ventricular Outflow Tract Name Value Normal LVOT 2D LVOT Diameter 2.4 cm LVOT Doppler LVOT Peak Gradient 10 mmHg LVOT Mean Gradient 6 mmHg LVOT VTI 2
[2021-01-24 00:02] LABS: Anion Gap 12 mmol/L (8-16); Blood Urea Nitrogen 106 mg/dL (9-20); Calcium 9.4 mg/dL (8.4-10.2); Carbon Dioxide 16 mmol/L (22-30); Chloride 118 mmol/L (98-107); Estimated CRCL calculation 18 ml/min; Estimated Glomerular Filt Rate 10; Glucose 97 mg/dL (75-110); Potassium 4.3 mmol/L (3.4-5.0); Sodium 146 mmol/L (137-145)
[2021-01-24 00:30] LABS: Glucose Point of Care 106 mg/dl (65-105)
[2021-01-24 00:30] LABS: Glucose Point of Care 99 mg/dl (65-105)
[2021-01-24 01:54] LABS: Glucose Point of Care 92 mg/dl (65-105)
[2021-01-24] MEDS: IPRATROPIUM BR 0.02% INH SOLN 0.5 MG/2.5 ML VIAL INHALATION ×4 (02:44→21:19)
[2021-01-24] MEDS: LEVALBUTEROL NEB 1.25 MG/3 ML 0.63 MG INHALATION ×4 (02:44→21:19)
[2021-01-24 04:11] LABS: Glucose Point of Care 145 mg/dl (65-105)
[2021-01-24 04:11] LABS: Glucose Point of Care 176 mg/dl (65-105)
[2021-01-24 04:17] LABS: Hematocrit 31.3 % (42.0-52.0); Hemoglobin 10.3 g/dL (14.0-18.0); Mean Corpuscular HGB Conc 32.9 g/dl (32-36); Mean Corpuscular Hemoglobin 26.3 pg (26-34); Mean Corpuscular Volume 80.1 fl (80-100); Mean Platelet Volume 12.1 fl (7.4-10.4); Platelet Count Result 120 k/mm3 (150-375); Red Blood Count 3.91 M/mm3 (4.6-6.20); Red Cell Distribution Width 13.2 % (11.5-14.5); White Blood Count 12.4 K/mm3 (4.5-10.0)
[2021-01-24 04:32] LABS: Lactic Acid Reflex 0.9 mmol/L (0.7-2.1)
[2021-01-24 04:34] LABS: Alanine Aminotransferase 26 U/L (4-50); Alkaline Phosphatase 77 U/L (38-126); Anion Gap 13 mmol/L (8-16); Aspartate Amino Transferase 52 U/L (17-59); Bilirubin,Total 0.2 mg/dL (0.2-1.3); Blood Urea Nitrogen 104 mg/dL (9-20); Calcium 9.3 mg/dL (8.4-10.2); Carbon Dioxide 16 mmol/L (22-30); Chloride 117 mmol/L (98-107); Estimated CRCL calculation 17 ml/min; Estimated Glomerular Filt Rate 10; Glucose 160 mg/dL (75-110); Magnesium 3.2 mg/dL (1.6-2.3); Phosphorus 3.9 mg/dL (2.5-4.5); Potassium 4.6 mmol/L (3.4-5.0); Sodium 146 mmol/L (137-145)
[2021-01-24] MEDS: KCL 20 MEQ/D5/0.45% SOD CHL 1,000 ML 150 ML IV CONT (04:56)
[2021-01-24] MEDS: CENTRAL LINE FLUSH 10 ML IV PUSH ×5 (04:56→20:48)
[2021-01-24] MEDS: INSULIN HUMAN REGULAR (*BKC) 100 UNITS in SODIUM CHLORIDE 0.9% IV 99 ML 9.7 UNITS IV CONT (05:04)
[2021-01-24 05:44] LABS: Alveolar/Arterial O2 Gradient 215.1 mmHg; Base Excess ABG -10.3 mEq/l (+/-2.0); Carboxyhemoglobin 0.3 % THb (0-2.0); Fractional Inspired Oxygen 45 %; HCO3 ABG 15.8 mEq/l (22.0-26.0); Methemoglobin ABG 0.4 %THb (0-1.5); Oxygen Content ABG 15.1 %vol (16.0-22.0); Oxygen Saturation ABG 90.2 % (95.0-100.0); Oxyhemoglobin 91.5 % THb (90.0-100.0); PCO2 ABG 35.5 mmHg (35.0-45.0); PO2 ABG 65.4 mmHg (80.0-100.0); PO2 FiO2 Ratio Arterial Blood 1.45 %; Reduced Hemoglobin 7.8 %THb (0-5.0); Total Hemoglobin 11.7 g/dL (12.0-18.0)
[2021-01-24 05:46] LABS: Modified Allen's Test Unable to perform; Site Drawn RIGHT RADIAL; pH ABG 7.265 (7.350-7.450)
[2021-01-24 05:47] LABS: Device VENTILATOR
[2021-01-24 05:48] LABS: Arterial Blood Gas PEEP 5 cmH2O; Arterial Blood Gas Tidal Volume 500 ml; Arterial Blood Gas Vent Mode CMV; Arterial Blood Gas Ventilator rate 22 /MIN
[2021-01-24 06:44] LABS: Glucose Point of Care 130 mg/dl (65-105)
[2021-01-24 06:44] LABS: Glucose Point of Care 141 mg/dl (65-105)
[2021-01-24] MEDS: CEFEPIME 1 GM in DEXTROSE 5% IN WATER 50 ML IVPB (08:21)
[2021-01-24] MEDS: MINERAL OIL/WHITE PETROLATUM OINTMENT 1 APPLIC EACH EYE ×2 (08:22→20:36)
[2021-01-24] MEDS: levETIRAcetam 500MG/NACL 100ML 500 MG/100 ML BAG 400 MG IVPB ×2 (08:22→20:35)
[2021-01-24] MEDS: PANTOPRAZOLE SODIUM IV 40 MG VIAL IV PUSH ×2 (08:23→20:36)
--- NOTE | 2021-01-24 08:35 | WPDINTPN ---
Progress Note: A&P Assessment and Plan (1) Acute respiratory failure: Code(s): J96.00 - Acute respiratory failure, unspecified whether with hypoxia or hypercapnia Status: Acute Assessment and Plan: Patient with acute respiratory failure, intubated on 01/21/2021 due to mental status changes and emesis, to protect his airway. - Chest x-ray and ABGs reviewed, currently on 30% FiO2 and peep of 5. - continue bronchodilators - sedated with fentanyl and Versed infusion, with daily sedation vacation - thick secretions from ET tube, will obtain sputum culture (2) DKA (diabetic ketoacidoses): Qualifiers: Diabetes mellitus complication detail: without coma Diabetes mellitus type: type 2 Qualified Code(s): E11.10 - Type 2 diabetes mellitus with ketoacidosis without coma Code(s): E11.10 - Type 2 diabetes mellitus with ketoacidosis without coma Status: Acute Assessment and Plan: patient presented with blood sugars of 1746, anion gap metabolic acidosis, elevated beta hydroxybutyrate. - Was given adequate amount of IV fluids, continuing maintenance IV fluids per DKA protocol - hemoglobin A1c is >14 this admission - patient's anion gap has closed and he is on insulin infusion with IV fluid with dextrose. currently at 8 units/hour. will change IV fluids to sterile water with bicarb and remove dextrose. - once insulin requirement is down will transition to subcu insulin (3) COVID-19: Code(s): U07.1 - COVID-19 Status: Acute Assessment and Plan: according the records patient was positive for COVID-19 on a home COVID-19 test kit. - COVID PCR was positive in the hospital - continue droplet, airborne, contact isolation/precautions - although it is not a classical presentation of COVID-19 considering the patient is on supplemental oxygen and has abnormal chest x-ray, will start patient on dexamethasone (4) Acute renal failure: Qualifiers: Acute renal failure type: unspecified Qualified Code(s): N17.9 - Acute kidney failure, unspecified Code(s): N17.9 - Acute kidney failure, unspecified Status: Acute Assessment and Plan: patient presented with acute kidney injury, lactic acidosis, hyperkalemia, likely related to possible decreased volume intake, hypotension/ATN, dehydration due to elevated sugars - patient has been adequately fluid-resuscitated 4 L fluid bolus, and continuing maintenance IV fluids per DKA protocol- - patient started to put out urine, creatinine improving slowly - nephrology following - 01/23 hemodialysis temporary catheter was placed in left IJ location. medical technologist clinical was unable to perform dialysis due to issues with catheter all last night. I was able to flush and draw blood from each port. as this is the left IJ catheter it may be positional. will discuss with nephrology regarding further attempts as patient's urine output is improving and his electrolytes are acceptable - renal ultrasound was unremarkable, no stones, masses or hydronephrosis - will maintain mean arteria l pressures > 70 mmHg for adequate renal perfusion (5) Acute hyperkalemia: Code(s): E87.5 - Hyperkalemia Status: Acute Assessment and Plan: likely related to metabolic acidosis, uremia, acute kidney injury. possible hypotension/ATN - potassium levels normalized - continue to monitor - change IV fluids (6) Septic shock: Code(s): A41.9 - Sepsis, unspecified organism; R65.21 - Severe sepsis with septic shock Status: Acute Assessment and Plan: elevated WBC count, lactic acidosis, hypotension - chest x-ray and UA were clear, source of infection unknown - blood cultures and sputum cultures negative to date - continue cefepime but will discontinue vancomycin at this time - continue Levophed as maintain mean arterial pressures > 70 mmHg (7) DVT prophylaxis: Code(s): Z29.9 - Encounter for prophylactic measures, uns
[2021-01-24 09:01] LABS: Glucose Point of Care 95 mg/dl (65-105)
[2021-01-24 09:26] LABS: Anion Gap 10 mmol/L (8-16); Blood Urea Nitrogen 110 mg/dL (9-20); Calcium 9.2 mg/dL (8.4-10.2); Carbon Dioxide 17 mmol/L (22-30); Chloride 118 mmol/L (98-107); Estimated CRCL calculation 17 ml/min; Estimated Glomerular Filt Rate 10; Glucose 96 mg/dL (75-110); Potassium 4.9 mmol/L (3.4-5.0); Sodium 145 mmol/L (137-145)
--- NOTE | 2021-01-24 10:26 | PCDIET ---
Nutrition Follow-Up Complete: Nutrition Diagnosis: Inadequate oral intake related to oral intubation as evidenced by NPO status. Nutrition Goal: Patient to meet estimated nutritional needs. Goal in progress. MD ordered Glucerna 1.2 at goal of 50mL/hr with 30mL water flush every 4 hours which will provide 1320kcal, 66g protein and 1065mL free water over 22 hours/day. Will recommend further advancing over the next couple of days to fully meet estimated needs. Last recorded weight is 129.8 kg which is increased from last review. +I/O. Bowel Motility: No documented BM. Labs Reviewed: WBC (12.4), Hgb (10.3), Hct (31.3), Glu (160), BUN (104), Cr (7.70), Na (146), Cl (117), Alb (3.0), Mg (3.2) Meds Noted: Aspart, Versed, Cefepime, Atrovent, Levophed, Vancomycin, Fentanyl, Xopenex, Protonix, D5/0.45NS with 20mEq KCl at 150mL/hr Additional Notes: Limited dialysis session 01/23/21 noted. No documented skin breakdown. Will continue to monitor with same goal. Nutrition Monitoring and Evaluation: Follow up every Saturday/Saturday.
[2021-01-24] MEDS: SODIUM BICARBONATE 8.4% 100 MEQ in WATER, STERILE FOR INJECTION 1,000 ML IV CONT ×2 (11:16→20:34)
[2021-01-24] MEDS: HEPARIN SODIUM 5,000 UNITS/ML VIAL 5000 UNITS SUB-Q ×2 (11:29→20:36)
[2021-01-24] MEDS: ACETAMINOPHEN 325 MG TABLET 650 MG PO ×2 (12:00→18:01)
[2021-01-24 12:08] LABS: Anion Gap 11 mmol/L (8-16); Blood Urea Nitrogen 109 mg/dL (9-20); Calcium 9.3 mg/dL (8.4-10.2); Carbon Dioxide 16 mmol/L (22-30); Chloride 117 mmol/L (98-107); Estimated CRCL calculation 17 ml/min; Estimated Glomerular Filt Rate 9; Glucose 182 mg/dL (75-110); Potassium 5.2 mmol/L (3.4-5.0); Sodium 144 mmol/L (137-145)
--- NOTE | 2021-01-24 12:20 | PM.IMPN ---
Progress Note: A&P Assessment and Plan (1) Hyperosmolar coma due to secondary diabetes: Code(s): E13.01 - Other specified diabetes mellitus with hyperosmolarity with coma Status: Acute Assessment and Plan: Sugar is better no continue with insulin p.r.n. monitor blood sugar (2) High anion gap metabolic acidosis: Code(s): E87.2 - Acidosis Status: Acute Assessment and Plan: treat hyperglycemia treat respiratory failure monitor labs and vital signs (3) Acute respiratory failure: Code(s): J96.00 - Acute respiratory failure, unspecified whether with hypoxia or hypercapnia Status: Acute Assessment and Plan: patient is intubated on the ventilator at this time (4) Acute renal failure: Qualifiers: Acute renal failure type: unspecified Qualified Code(s): N17.9 - Acute kidney failure, unspecified Code(s): N17.9 - Acute kidney failure, unspecified Status: Acute Assessment and Plan: consult nephrology (5) COVID-19: Code(s): U07.1 - COVID-19 Status: Acute Assessment and Plan: confirmatory test COVID positive (6) History of seizure disorder: Code(s): Z86.69 - Personal history of other diseases of the nervous system and sense organs Status: Acute Assessment and Plan: consider neurology consultation and EEG Additional Plan will continue with supportive care at present time. X-ray chest Chest reviewed, will monitor electrolytes. Consults noted. Subjective Date/time seen: 01/24/21 12:20 Patient is intubated and sedated. No new complaints. Interval history: patient is intubated, and sedated. patient off Levophed, although blood pressure is soft at this time. Review of Systems Review of Systems: ROS unobtainable: Yes unobtainable due to medical condition ( ALTERED MENTAL STATUS ON VENTILATOR SUPPORT) Exam Narrative: Exam Narrative: intubated and sedated Const: General: comfortable, well developed, awake, ill appearing acutely, well groomed and other ( COMATOSE) Nutritional Appearance: overweight Orientation/consciousness: Other orientation findings ( COMATOSE) HENMT: Head: normal to inspection, normocephalic and atraumatic Ears: hearing grossly normal bilaterally Face and sinus: normal facial exam Mouth: Yes moist mucous membranes Eyes: General: appearance normal, both eyes and all related structures Pupils: Equal, round and reactive pupils present EOM: EOMs intact bilaterally Neck: Neck: full ROM, no lymphadenopathy and no JVD Thyroid: thyroid normal Lymphatic: no lymphadenopathy noted Resp: Effort & Inspection: normal respiratory effort and decreased respiratory effort Auscultation: clear to auscultation bilaterally Cardio: Jugular venous distension: no JVD Rate: regular rate and tachycardic Heart sounds: S1 normal heart sound present and S2 normal heart sound present GI: Inspection: non-distended : General: Yes deferred Other: MENDOZA IN PLACE Skin: General skin exam: normal color Rashes: no rashes Wounds: no wounds Neuro: General: no focal motor deficits, CN's II-XI intact bilaterally and Unable to assess gait Cranial nerves: Yes CN's II-XII intact bilaterally and Yes Equal, round and reactive pupils present Cognition (Neuro): abnormal cognition ( COMATOSE) Gait exam (Neuro): Unable to assess gait Motor exam (neuro): 5/5 motor strength present throughout Extrem: General: normal to inspection, full ROM, no joint enlargement and no pedal edema Objective Data Vital Signs Vital Signs: Vital Signs - 24 hr 01/23/21 12:35 01/23/21 13:52 01/23/21 14:00 Temperature Pulse Rate 117 H 119 H 120 H Respiratory Rate 22 H 26 H Blood Pressure 125/51 L 131/62 Pulse Oximetry 95 01/23/21 14:04 01/23/21 14:05 01/23/21 14:14 Temperature Pulse Rate 119 H 119 H 118 H Respiratory Rate 26 H Blood Pressure Pulse Oximetry 90 01/23/21 15:5
[2021-01-24 12:52] LABS: Free T4 Free Thyroxine 0.76 ng/mL (0.78-2.19)
[2021-01-24] MEDS: MIDAZOLAM 100MG/NS 100ML(*CRX) 100 MG/100 ML BAG IV CONT (13:24)
--- NOTE | 2021-01-24 14:42 | P.PCNBED_ITS ---
Procedures Central Line Placement Left IJ: Central Line Date: 01/24/21 Central Line Time: 14:15 Performed Emergently - Given emergent patient condition, temporal constraints may have precluded informed consent.: Yes Time Out Performed: Yes Patient Position: supine Patient placed on monitor/pulse ox: Yes Provider Prep: mask, sterile gown, sterile gloves, Max. sterile barrier precautions, cap and hand hygiene with conventional soap/water or alcohol based hand rub Central line prep: 2% Chlorhexidine scrub Central line lumen inserted: double Length (cm): 20 Depth of Insertion (cm): 20 Post Procedure: sutured in place, good blood return, all ports aspirated, flushed, capped and transparent dressing Post procedure x-ray: tip of catheter in good position and no pneumothorax seen Patient tolerated procedure: well Complications: none Additional comments: Patient had hemodialysis catheter placed in left IJ yesterday. since placement catheter had issues with flow. hemodialysis was unsuccessful last night. this morning I tested both ports and they were flushi ng and drawing blood. later in the afternoon when hemodialysis was re-attempted again 1 port was not working adequately. I tried to troubleshoot the hemodialysis catheter by repositioning the patient and by attempting to draw the blood by plan for catheter out 1 cm but was unable to get any blood out of red port. as patient needed hemodialysis, I replaced the catheter over guidewire within use catheter at the same site without a new stick. both ports a now drawing and flushing without any resistance. chest x-ray was reviewed and shows tube in adequate position and no pneumothorax
[2021-01-24] MEDS: FENTANYL 2,500MCG/NS250ML(*CRX 2,500 MCG/250 ML BAG 12.5 MCG IV CONT (14:43)
--- NOTE | 2021-01-24 15:31 | PM.PNNEP ---
Progress Note: A&P Assessment and Plan (1) DB (acute kidney injury): Code(s): N17.9 - Acute kidney failure, unspecified Status: Acute Assessment and Plan: unclear what baseline creatinine normally runs given his poorly controlled diabetes, he may have some underlying CKD suspect DB due to decreased volume intake/volume depletion, hypotension, and hyperglycemia proceed with dialysis for clearance of uremic toxins, correction of acidosis, and electrolyte control renal ultrasound normal and urine electrolytes c/w pre-renal azotemia follow trend of repeat labs and UOP in the hopes of renal recovery (2) Hyperkalemia: Code(s): E87.5 - Hyperkalemia Status: Acute Assessment and Plan: due to combination of metabolic acidosis + uremia + acute kidney injury + renal hypoperfusion doing much better follow trend (3) Septic shock: Code(s): A41.9 - Sepsis, unspecified organism; R65.21 - Severe sepsis with septic shock Status: Acute Assessment and Plan: criteria of leukocytosis, lactic acidosis, and hypotension along with DB/ARF no clear source as of yet (CXR and UA unrevealing) follow culture data empiric antibiotics wean off vasopressor therapy (4) Acute respiratory failure: Code(s): J96.00 - Acute respiratory failure, unspecified whether with hypoxia or hypercapnia Status: Acute Assessment and Plan: due to altered mental status, emesis, and inability to protect airway follow CXR and ABGs wean when more stable (5) DKA (diabetic ketoacidoses): Qualifiers: Diabetes mellitus complication detail: without coma Diabetes mellitus type: type 2 Qualified Code(s): E11.10 - Type 2 diabetes mellitus with ketoacidosis without coma Code(s): E11.10 - Type 2 diabetes mellitus with ketoacidosis without coma Status: Acute Assessment and Plan: admitted with hyperglycemia, high anion gap acidosis and elevated BHOB s/p aggressive IVF resuscitation A1c quite elevated on insulin gtt at this time (6) COVID-19: Code(s): U07.1 - COVID-19 Status: Acute Assessment and Plan: tested positive by home kit rechecked here (pending) respiratory/contact/droplet isolation for now Will continue to follow. Subjective Date/time seen: 01/24/21 15:31 Attempted dialysis yesterday and earlier today were unsuccessful despite guidewire exchange of current HD catheter; if his kidney function is worse tomorrow, next step would be placement of a HD catheter via fluoroscopy; remains intubated/sedated; no real change. Exam Narrative: Exam Narrative: General: WD/WN AA male intubated Heart: normal S1 and S2; no rub Lungs: clear to auscultation Abdomen: soft, nontender, nondistended, positive bowel sounds Extremities: no cyanosis or clubbing; no edema Skin: warm and intact Objective Data Vital Signs Vital Signs: Vital Signs Temp Pulse Resp BP Pulse Ox 01/24/21 21:24 119 H 24 H 01/24/21 21:15 118 H 24 H 01/24/21 21:14 118 H 97 01/24/21 20:30 118 H 28 H 01/24/21 20:29 118 H 28 H 01/24/21 20:00 38.0 C H 117 H 28 H 145/82 H 96 01/24/21 19:54 110 H 24 H 96 01/24/21 19:01 37.9 C H 01/24/21 18:01 38.0 C H 01/24/21 18:00 38.0 C H 110 H 24 H 144/80 H 96 01/24/21 16:44 119 H 97 01/24/21 16:00 37.7 C H 120 H 24 H 132/80 97 01/24/21 15:30 118 H 24 H 96 01/24/21 14:43 121 H 24 H 01/24/21 14:00 37.4 C 120 H 24 H 146/75 H 96 01/24/21 13:24 115 H 24 H 01/24/21 13:00 38.3 C H 01/24/21 12:00 38.3 C H 130 H 24 H 122/54 L 93 01/24/21 11:30 119 H 94 01/24/21 10:00 38.1 C H 128 H 24 H 90/64 L 93 01/24/21 09:39 115 H 24 H 01/24/21 08:57 119 H 24 H 95 01/24/21 08:00 37.7 C H 120 H 24 H 105/56 L 93 01/24/21 06:00 37.4 C 118 H 23 H 104/57 L 92 01/24/21 05:27 117 H 91
--- NOTE | 2021-01-24 15:31 | P.PNNP_ITS ---
Progress Note: A&P Assessment and Plan (1) DB (acute kidney injury): Code(s): N17.9 - Acute kidney failure, unspecified Status: Acute Assessment and Plan: * unclear what baseline creatinine normally runs * given his poorly controlled diabetes, he may have some underlying CKD * suspect DB due to decreased volume intake/volume depletion, hypotension, and hyperglycemia * proceed with dialysis for clearance of uremic toxins, correction of acidosis, and electrolyte control * renal ultrasound normal and urine electrolytes c/w pre-renal azotemia * follow trend of repeat labs and UOP in the hopes of renal recovery (2) Hyperkalemia: Code(s): E87.5 - Hyperkalemia Status: Acute Assessment and Plan: * due to combination of metabolic acidosis + uremia + acute kidney injury + renal hypoperfusion * doing much better * follow trend (3) Septic shock: Code(s): A41.9 - Sepsis, unspecified organism; R65.21 - Severe sepsis with septic shock Status: Acute Assessment and Plan: * criteria of leukocytosis, lactic acidosis, and hypotension along with DB/ARF * no clear source as of yet (CXR and UA unrevealing) * follow culture data * empiric antibiotics * wean off vasopressor therapy (4) Acute respiratory failure: Code(s): J96.00 - Acute respiratory failure, unspecified whether with hypoxia or hypercapnia Status: Acute Assessment and Plan: * due to altered mental status, emesis, and inability to protect airway * follow CXR and ABGs * wean when more stable (5) DKA (diabetic ketoacidoses): Qualifiers: Diabetes mellitus complication detail: without coma Diabetes mellitus type: type 2 Qualified Code(s): E11.10 - Type 2 diabetes mellitus with ketoacidosis without coma Code(s): E11.10 - Type 2 diabetes mellitus with ketoacidosis without coma Status: Acute Assessment and Plan: * admitted with hyperglycemia, high anion gap acidosis and elevated BHOB * s/p aggressive IVF resuscitation * A1c quite elevated * on insulin gtt at this time (6) COVID-19: Code(s): U07.1 - COVID-19 Status: Acute Assessment and Plan: * tested positive by home kit * rechecked here (pending) * respiratory/contact/droplet isolation for now Will continue to follow. Subjective Date/time seen: 01/24/21 15:31 Attempted dialysis yesterday and earlier today were unsuccessful despite guidewire exchange of current HD catheter; if his kidney function is worse tomorrow, next step would be placement of a HD catheter via fluoroscopy; remains intubated/sedated; no real change. Exam Narrative: Exam Narrative: General: WD/WN AA male intubated Heart: normal S1 and S2; no rub Lungs: clear to auscultation Abdomen: soft, nontender, nondistended, positive bowel sounds Extremities: no cyanosis or clubbing; no edema Skin: warm and intact Objective Data Vital Signs Vital Signs: Vital Signs Temp Pulse Resp BP Pulse Ox 01/24/21 21:24 119 H 24 H 01/24/21 21:15 118 H 24 H 01/24/21 21:14 118 H 97 01/24/21 20:30 118 H 28 H 01/24/21 20:29 118 H 28 H 01/24/21 20:00 38.0 C H 117 H 28 H 145/82 H 96 01/24/21 19:54 110 H 24 H 96 01/24/21 19:01 37.9 C H 01/24/21 18:01 38.0 C H 01/24/21 18:00 38.0 C H 110 H 24 H 144/80 H 96
[2021-01-24] MEDS: INSULIN HUMAN REGULAR (*BKC) 100 UNITS in SODIUM CHLORIDE 0.9% IV 99 ML IV CONT (16:56)
[2021-01-24 17:02] LABS: Glucose Point of Care 200 mg/dl (65-105)
[2021-01-24 17:02] LABS: Glucose Point of Care 178 mg/dl (65-105)
[2021-01-24 17:02] LABS: Glucose Point of Care 132 mg/dl (65-105)
[2021-01-24 17:02] LABS: Glucose Point of Care 113 mg/dl (65-105)
[2021-01-24 17:02] LABS: Glucose Point of Care 160 mg/dl (65-105)
[2021-01-24 17:02] LABS: Glucose Point of Care 163 mg/dl (65-105)
[2021-01-24 17:03] LABS: Glucose Point of Care 100 mg/dl (65-105)
[2021-01-24 18:02] LABS: Glucose Point of Care 117 mg/dl (65-105)
[2021-01-24 18:12] LABS: Anion Gap 10 mmol/L (8-16); Blood Urea Nitrogen 110 mg/dL (9-20); Calcium 9.3 mg/dL (8.4-10.2); Carbon Dioxide 18 mmol/L (22-30); Chloride 116 mmol/L (98-107); Estimated CRCL calculation 18 ml/min; Estimated Glomerular Filt Rate 10; Glucose 114 mg/dL (75-110); Potassium 5.8 mmol/L (3.4-5.0); Sodium 144 mmol/L (137-145)
[2021-01-24] MEDS: LORazepam INJ (*CRX) 2 MG/ML VIAL IV PUSH (20:34)
[2021-01-24] MEDS: ACETAMINOPHEN ELIXIR 325 MG/10.15 ML UDC 650 MG PO (22:12)
[2021-01-24 23:18] LABS: Glucose Point of Care 147 mg/dl (65-105)
[2021-01-24 23:18] LABS: Glucose Point of Care 129 mg/dl (65-105)
[2021-01-24 23:18] LABS: Glucose Point of Care 134 mg/dl (65-105)
[2021-01-24 23:34] LABS: Anion Gap 9 mmol/L (8-16); Blood Urea Nitrogen 114 mg/dL (9-20); Calcium 9.5 mg/dL (8.4-10.2); Carbon Dioxide 19 mmol/L (22-30); Chloride 114 mmol/L (98-107); Estimated CRCL calculation 17 ml/min; Estimated Glomerular Filt Rate 10; Glucose 149 mg/dL (75-110); Potassium 5.3 mmol/L (3.4-5.0); Sodium 142 mmol/L (137-145)
[2021-01-25] VITALS (43 sets, daily range): BP systolic 103–154; BP diastolic 51–86; PULSE 93–132; RESP 22–30; TEMP 36.8–38.5; O2SAT 89–98
[2021-01-25] MEDS: INSULIN HUMAN REGULAR (*BKC) 100 UNITS in SODIUM CHLORIDE 0.9% IV 99 ML 12.4 UNITS IV CONT (01:44)
[2021-01-25] MEDS: ACETAMINOPHEN ELIXIR 325 MG/10.15 ML UDC 650 MG PO ×3 (01:59→20:11)
[2021-01-25] MEDS: IPRATROPIUM BR 0.02% INH SOLN 0.5 MG/2.5 ML VIAL INHALATION ×4 (02:29→19:53)
[2021-01-25] MEDS: LEVALBUTEROL NEB 1.25 MG/3 ML 0.63 MG INHALATION ×4 (02:29→19:53)
[2021-01-25 03:19] LABS: Glucose Point of Care 136 mg/dl (65-105)
[2021-01-25 03:19] LABS: Glucose Point of Care 163 mg/dl (65-105)
[2021-01-25 03:19] LABS: Glucose Point of Care 145 mg/dl (65-105)
[2021-01-25] MEDS: CENTRAL LINE FLUSH 10 ML IV PUSH ×4 (05:14→21:14)
[2021-01-25 05:47] LABS: Alveolar/Arterial O2 Gradient 192.6 mmHg; Base Excess ABG -5.6 mEq/l (+/-2.0); Carboxyhemoglobin 0.2 % THb (0-2.0); Fractional Inspired Oxygen 45 %; HCO3 ABG 18.5 mEq/l (22.0-26.0); Methemoglobin ABG 0.6 %THb (0-1.5); Oxygen Content ABG 14.2 %vol (16.0-22.0); Oxygen Saturation ABG 97.1 % (95.0-100.0); Oxyhemoglobin 95.6 % THb (90.0-100.0); PCO2 ABG 31.3 mmHg (35.0-45.0); PO2 ABG 92.7 mmHg (80.0-100.0); PO2 FiO2 Ratio Arterial Blood 2.06 %; Reduced Hemoglobin 3.6 %THb (0-5.0); Total Hemoglobin 10.5 g/dL (12.0-18.0); pH ABG 7.389 (7.350-7.450)
[2021-01-25 05:49] LABS: Hematocrit 27.5 % (42.0-52.0); Hemoglobin 9.1 g/dL (14.0-18.0); Mean Corpuscular HGB Conc 33.1 g/dl (32-36); Mean Corpuscular Hemoglobin 26.4 pg (26-34); Mean Corpuscular Volume 79.7 fl (80-100); Mean Platelet Volume 12.5 fl (7.4-10.4); Platelet Count Result 197 k/mm3 (150-375); Red Blood Count 3.45 M/mm3 (4.6-6.20); Red Cell Distribution Width 13.3 % (11.5-14.5); White Blood Count 14.5 K/mm3 (4.5-10.0)
[2021-01-25 05:49] LABS: Arterial Blood Gas PEEP 5 cmH2O; Arterial Blood Gas Tidal Volume 500 ml; Arterial Blood Gas Vent Mode CMV; Arterial Blood Gas Ventilator rate 24 /MIN; Device VENTILATOR; Modified Allen's Test Unable to perform; Site Drawn RIGHT RADIAL
[2021-01-25 06:02] LABS: Lactic Acid Reflex 0.9 mmol/L (0.7-2.1)
[2021-01-25 06:06] LABS: Alanine Aminotransferase 25 U/L (4-50); Albumin Level 2.9 g/dL (3.5-5.1); Alkaline Phosphatase 75 U/L (38-126); Anion Gap 12 mmol/L (8-16); Aspartate Amino Transferase 49 U/L (17-59); Bilirubin,Total 0.2 mg/dL (0.2-1.3); Blood Urea Nitrogen 117 mg/dL (9-20); Calcium 9.4 mg/dL (8.4-10.2); Carbon Dioxide 19 mmol/L (22-30); Chloride 113 mmol/L (98-107); Estimated CRCL calculation 18 ml/min; Estimated Glomerular Filt Rate 10; Glucose 126 mg/dL (75-110); Magnesium 3.2 mg/dL (1.6-2.3); Phosphorus 3.9 mg/dL (2.5-4.5); Potassium 4.4 mmol/L (3.4-5.0); Sodium 144 mmol/L (137-145)
[2021-01-25] MEDS: FENTANYL 2,500MCG/NS250ML(*CRX 2,500 MCG/250 ML BAG 15 MCG IV CONT (06:17)
[2021-01-25] MEDS: MIDAZOLAM 100MG/NS 100ML(*CRX) 100 MG/100 ML BAG 6 MG IV CONT (06:18)
[2021-01-25 06:29] LABS: Glucose Point of Care 114 mg/dl (65-105)
[2021-01-25 06:29] LABS: Glucose Point of Care 137 mg/dl (65-105)
--- NOTE | 2021-01-25 06:54 | P.CDI_ITS ---
CDI Query Clarification Request 1) -Sepsis and septic shock has been documented by the intensivists and by Dr Gorman -Pt was on Levophed drip 01/22 and 01/23 -T max 103.3, WBC 23, lactic acid 3.1, 3.5, 2.7, and pt with acute renal failure and acute respiratory failure. -No mention of sepsis/septic shock by hospitalists Please clarify if sepsis and septic shock have been ruled in or ruled out. 2)-On arrival: blood sugar- 1746, pH 7.016 and HCO3 5.5 per ABG's, 1+ ketones in urine, anion gap 34 and beta-hydroxybutyrate/acetoacetate was 10.70 -Documentation that patient was uncooperative, pulling out IV's, yelling, attempting to get out of bed in ED. Pt was then intubated and sedated. -DKA documented by EDP, Dr Kerns and Dr Gorman -Hyperosmolar coma due to secondary diabetes documented by hospitalist -These are different/conflicting diagnosis codes Please clarify which diagnosis most accurately reflects patient's condition: * DKA * Hyperosmolar coma due to secondary diabetes * Unable to determine
--- NOTE | 2021-01-25 08:56 | WPDINTPN ---
Progress Note: A&P Assessment and Plan (1) Acute respiratory failure: Code(s): J96.00 - Acute respiratory failure, unspecified whether with hypoxia or hypercapnia Status: Acute Assessment and Plan: Patient with acute respiratory failure, intubated on 01/21/2021 due to mental status changes and emesis, to protect his airway. - Chest x-ray and ABGs reviewed, currently on 30% FiO2 and peep of 5. - continue bronchodilators - sedated with fentanyl and Versed infusion, with daily sedation vacation. will transition to propofol - sputum culture is growing yeast which probably is likely contaminant or colonizer (2) DKA (diabetic ketoacidoses): Qualifiers: Diabetes mellitus complication detail: without coma Diabetes mellitus type: type 2 Qualified Code(s): E11.10 - Type 2 diabetes mellitus with ketoacidosis without coma Code(s): E11.10 - Type 2 diabetes mellitus with ketoacidosis without coma Status: Acute Assessment and Plan: patient presented with blood sugars of 1746, anion gap metabolic acidosis, elevated beta hydroxybutyrate. - Was given adequate amount of IV fluids, continuing maintenance IV fluids per DKA protocol - hemoglobin A1c is >14 this admission - patient's anion gap has closed and he is on insulin infusion for hyperglycemia. IV fluids will be discontinued today as patient is overall volume overloaded now - add Lantus and try to wean off insulin drip - once insulin requirement is down will transition to subcu insulin (3) COVID-19: Code(s): U07.1 - COVID-19 Status: Acute Assessment and Plan: according the records patient was positive for COVID-19 on a home COVID-19 test kit. - COVID PCR was positive in the hospital - continue droplet, airborne, contact isolation/precautions - although it is not a classical presentation of COVID-19 considering the patient is on supplemental oxygen and has abnormal chest x-ray, patient was started on dexamethasone 01/24 (4) Acute renal failure: Qualifiers: Acute renal failure type: unspecified Qualified Code(s): N17.9 - Acute kidney failure, unspecified Code(s): N17.9 - Acute kidney failure, unspecified Status: Acute Assessment and Plan: patient presented with acute kidney injury, lactic acidosis, hyperkalemia, likely related to possible decreased volume intake, hypotension/ATN, dehydration due to elevated sugars - patient has been adequately fluid-resuscitated 4 L fluid bolus, and continuing maintenance IV fluids per DKA protocol- - nephrology following - 01/23 hemodialysis temporary catheter was placed in left IJ location. chief nuclear medicine technologist was unable to perform dialysis due to issues with catheter last night. 01/24 I was able to flush and draw blood from each port. hemodialysis was again attempted in the afternoon and 1 port was still not working. I changed the dialysis catheter over guidewire to a new 20 cm catheter. hemodialysis was again in attempted in the evening. I was called by nurse stating that patient again had issues with 1 port of the dialysis catheter. dialysis was again unsuccessful due. I requested nurse to remove the dialysis catheter altogether and I was planning to place a new 1 today at a different site. - overnight patient's urine output has improved and he had 600 mL urine output yesterday but over 1 L overnight. his potassium is normal in BUN and creatinine are stable. - discussed with nephrology. will hold dialysis for another 24 hours and see if patient continues to improve and will give 80 mg of Lasix IV x1 - Renal ultrasound was unremarkable, no stones, masses or hydronephrosis - will maintain mean arteria l pressures > 70 mmHg for adequate renal perfusion (5) Acute hyperkalemia: Code(s): E87.5 - Hyperkalemia Status: Acute Assessment and Plan: likely related to metabolic acidosis, uremia, acute kidney injury. possible hypotension/ATN - potassi
[2021-01-25] MEDS: CEFEPIME 1 GM in DEXTROSE 5% IN WATER 50 ML IVPB (08:59)
[2021-01-25] MEDS: levETIRAcetam 500MG/NACL 100ML 500 MG/100 ML BAG 400 MG IVPB ×2 (09:00→20:11)
[2021-01-25 10:03] LABS: Triglycerides 166 mg/dL (<150)
[2021-01-25] MEDS: FUROSEMIDE INJ 100 MG/10 ML VIAL 80 MG IV PUSH (10:30)
[2021-01-25] MEDS: INSULIN GLARGINE (*BKC) 100 UNITS/ML 50 UNITS SUB-Q (10:30)
[2021-01-25] MEDS: HEPARIN SODIUM 5,000 UNITS/ML VIAL 5000 UNITS SUB-Q ×2 (10:31→20:11)
[2021-01-25] MEDS: PANTOPRAZOLE SODIUM IV 40 MG VIAL IV PUSH ×2 (10:32→20:12)
[2021-01-25] MEDS: MINERAL OIL/WHITE PETROLATUM OINTMENT 1 APPLIC EACH EYE ×2 (10:32→20:12)
--- NOTE | 2021-01-25 10:54 | PM.IMPN ---
Progress Note: A&P Assessment and Plan (1) Hyperosmolar coma due to secondary diabetes: Code(s): E13.01 - Other specified diabetes mellitus with hyperosmolarity with coma Status: Acute Assessment and Plan: Sugar is better no continue with insulin p.r.n. monitor blood sugar (2) High anion gap metabolic acidosis: Code(s): E87.2 - Acidosis Status: Acute Assessment and Plan: treat hyperglycemia treat respiratory failure monitor labs and vital signs (3) Acute respiratory failure: Code(s): J96.00 - Acute respiratory failure, unspecified whether with hypoxia or hypercapnia Status: Acute Assessment and Plan: patient is intubated on the ventilator at this time (4) Acute renal failure: Qualifiers: Acute renal failure type: unspecified Qualified Code(s): N17.9 - Acute kidney failure, unspecified Code(s): N17.9 - Acute kidney failure, unspecified Status: Acute Assessment and Plan: consult nephrology (5) COVID-19: Code(s): U07.1 - COVID-19 Status: Acute Assessment and Plan: confirmatory test COVID positive (6) History of seizure disorder: Code(s): Z86.69 - Personal history of other diseases of the nervous system and sense organs Status: Acute Assessment and Plan: consider neurology consultation and EEG Additional Plan will continue with supportive care at present time. X-ray chest Chest reviewed, will monitor electrolytes. Consults noted. : Continue with current plan of care and treatment. We know sedation as needed. Patient is off the pressors at present time. Monitor blood pressure closely. Will monitor a CBC and electrolytes are normal. Subjective Date/time seen: 01/25/21 10:54 Patient was seen during the morning rounds today. No new overnight complaints. Patient is intubated and sedated. Review of Systems Review of Systems: ROS unobtainable: Yes unobtainable due to medical condition ( ALTERED MENTAL STATUS ON VENTILATOR SUPPORT) Exam Narrative: Exam Narrative: intubated and sedated Const: General: comfortable, well developed, awake, ill appearing acutely, well groomed and other ( COMATOSE) Nutritional Appearance: overweight Orientation/consciousness: Other orientation findings ( COMATOSE) HENMT: Head: normal to inspection, normocephalic and atraumatic Ears: hearing grossly normal bilaterally Face and sinus: normal facial exam Mouth: Yes moist mucous membranes Eyes: General: appearance normal, both eyes and all related structures Pupils: Equal, round and reactive pupils present EOM: EOMs intact bilaterally Neck: Neck: full ROM, no lymphadenopathy and no JVD Thyroid: thyroid normal Lymphatic: no lymphadenopathy noted Resp: Effort & Inspection: normal respiratory effort and decreased respiratory effort Auscultation: clear to auscultation bilaterally Cardio: Jugular venous distension: no JVD Rate: regular rate and tachycardic Heart sounds: S1 normal heart sound present and S2 normal heart sound present GI: Inspection: non-distended : General: Yes deferred Other: MENDOZA IN PLACE Skin: General skin exam: normal color Rashes: no rashes Wounds: no wounds Neuro: General: no focal motor deficits, CN's II-XI intact bilaterally and Unable to assess gait Cranial nerves: Yes CN's II-XII intact bilaterally and Yes Equal, round and reactive pupils present Cognition (Neuro): abnormal cognition ( COMATOSE) Gait exam (Neuro): Unable to assess gait Motor exam (neuro): 5/5 motor strength present throughout Extrem: General: normal to inspection, full ROM, no joint enlargement and no pedal edema Objective Data Vital Signs Vital Signs: Vital Signs - 24 hr 01/24/21 11:30 01/24/21 12:00 01/24/21 13:00 Temperature 38.3 C H 38.3 C H Pulse Rate 119 H 130 H Respiratory Rate 24 H Blood Pressure 122/54 L Pulse Oximetry 94 93 01/24/21 13:24
--- NOTE | 2021-01-25 11:20 | PCDIET ---
ICU Rounding Note: Patient tolerating Glucerna 1.2 at 50mL/hr ordered goal rate with 30mL water flush every 4 hours which provides 1320kcal and 66g protein over 22 hours/day. If Propofol not initiated, will likely recommend increase in tube feeding rate over next 24 hours. Last recorded weight is 133.1kg which is increased from last review. +I/O. Bowel Motility: No BM documented. Discussed during rounds. Labs Reviewed: WBC (14.5), RBC (3.45), Hgb (9.1), Hct (27.5), Glu (114), BUN (117), Cr (7.5), Cl (113), Alb (2.9), Mg (3.2) Meds Noted: Cefepime, Decadron, Xopenex, Versed, Fentanyl, Aspart, Atrovent, Levophed, Protonix, 100mEq Sodium Bicarbonate/Water at 100mL/hr Additional Notes: MD obtaining TG level. No documented skin breakdown. Following daily in ICU rounds. Assessing/reassessing every Saturday/Saturday.
--- NOTE | 2021-01-25 11:48 | P.PNNP_ITS ---
Progress Note: A&P Assessment and Plan (1) DB (acute kidney injury): Code(s): N17.9 - Acute kidney failure, unspecified Status: Acute Assessment and Plan: * unclear what baseline creatinine normally runs * given his poorly controlled diabetes, he may have some underlying CKD * suspect DB due to decreased volume intake/volume depletion, hypotension, and hyperglycemia * renal ultrasound normal and urine electrolytes c/w pre-renal azotemia * hold dialysis today given increased urine output with stable electrolytes * diuretic trial today and reassess tomorrow if dialysis needed * follow trend of repeat labs and UOP in the hopes of renal recovery (2) Hyperkalemia: Code(s): E87.5 - Hyperkalemia Status: Acute Assessment and Plan: * due to combination of metabolic acidosis + uremia + acute kidney injury + renal hypoperfusion * doing much better * follow trend (3) Septic shock: Code(s): A41.9 - Sepsis, unspecified organism; R65.21 - Severe sepsis with septic shock Status: Acute Assessment and Plan: * criteria of leukocytosis, lactic acidosis, and hypotension along with DB/ARF * no clear source as of yet (CXR and UA unrevealing) * follow culture data * empiric antibiotics * off vasopressor therapy (4) Acute respiratory failure: Code(s): J96.00 - Acute respiratory failure, unspecified whether with hypoxia or hypercapnia Status: Acute Assessment and Plan: * due to altered mental status, emesis, and inability to protect airway * follow CXR and ABGs * wean when more stable (5) DKA (diabetic ketoacidoses): Qualifiers: Diabetes mellitus complication detail: without coma Diabetes mellitus type: type 2 Qualified Code(s): E11.10 - Type 2 diabetes mellitus with ketoacidosis without coma Code(s): E11.10 - Type 2 diabetes mellitus with ketoacidosis without coma Status: Acute Assessment and Plan: * admitted with hyperglycemia, high anion gap acidosis and elevated BHOB * s/p aggressive IVF resuscitation * A1c quite elevated * on insulin gtt at this time (6) COVID-19: Code(s): U07.1 - COVID-19 Status: Acute Assessment and Plan: * tested positive by home kit * rechecked here and positive as well * respiratory/contact/droplet isolation * on steroid therapy Will continue to follow. Subjective Date/time seen: 01/25/21 11:48 Continued issues with dialysis catheter yesterday despite guidewire exchange and hence did not really get dialysis yesterday afternoon; remains hemodynamically stable off pressors; still on ventilator at this time; improved urine output over the last 24 hours with relative stability of BUN and creatinine. Exam Narrative: Exam Narrative: General: WD/WN AA male intubated Heart: normal S1 and S2; no rub Lungs: decreased at bases Abdomen: soft, nontender, nondistended, positive bowel sounds Extremities: no cyanosis or clubbing; no edema Skin: no rash or nodules Objective Data Vital Signs Vital Signs: Vital Signs Temp Pulse Resp BP Pulse Ox 01/25/21 10:58 121 H 91 01/25/21 10:00 131 H 24 H 121/59 L 90 01/25/21 09:32 127 H 24 H 01/25/21 09:17 121 H 25 H 01/25/21 09:12 121 H 91 01/25/21 09:04 120 H 30 H 01/25/21 08:00 37.2 C 122 H 24 H 154/77 H 96 01/25/21 06:18 112 H 24 H
--- NOTE | 2021-01-25 11:48 | PM.PNNEP ---
Progress Note: A&P Assessment and Plan (1) DB (acute kidney injury): Code(s): N17.9 - Acute kidney failure, unspecified Status: Acute Assessment and Plan: unclear what baseline creatinine normally runs given his poorly controlled diabetes, he may have some underlying CKD suspect DB due to decreased volume intake/volume depletion, hypotension, and hyperglycemia renal ultrasound normal and urine electrolytes c/w pre-renal azotemia hold dialysis today given increased urine output with stable electrolytes diuretic trial today and reassess tomorrow if dialysis needed follow trend of repeat labs and UOP in the hopes of renal recovery (2) Hyperkalemia: Code(s): E87.5 - Hyperkalemia Status: Acute Assessment and Plan: due to combination of metabolic acidosis + uremia + acute kidney injury + renal hypoperfusion doing much better follow trend (3) Septic shock: Code(s): A41.9 - Sepsis, unspecified organism; R65.21 - Severe sepsis with septic shock Status: Acute Assessment and Plan: criteria of leukocytosis, lactic acidosis, and hypotension along with DB/ARF no clear source as of yet (CXR and UA unrevealing) follow culture data empiric antibiotics off vasopressor therapy (4) Acute respiratory failure: Code(s): J96.00 - Acute respiratory failure, unspecified whether with hypoxia or hypercapnia Status: Acute Assessment and Plan: due to altered mental status, emesis, and inability to protect airway follow CXR and ABGs wean when more stable (5) DKA (diabetic ketoacidoses): Qualifiers: Diabetes mellitus complication detail: without coma Diabetes mellitus type: type 2 Qualified Code(s): E11.10 - Type 2 diabetes mellitus with ketoacidosis without coma Code(s): E11.10 - Type 2 diabetes mellitus with ketoacidosis without coma Status: Acute Assessment and Plan: admitted with hyperglycemia, high anion gap acidosis and elevated BHOB s/p aggressive IVF resuscitation A1c quite elevated on insulin gtt at this time (6) COVID-19: Code(s): U07.1 - COVID-19 Status: Acute Assessment and Plan: tested positive by home kit rechecked here and positive as well respiratory/contact/droplet isolation on steroid therapy Will continue to follow. Subjective Date/time seen: 01/25/21 11:48 Continued issues with dialysis catheter yesterday despite guidewire exchange and hence did not really get dialysis yesterday afternoon; remains hemodynamically stable off pressors; still on ventilator at this time; improved urine output over the last 24 hours with relative stability of BUN and creatinine. Exam Narrative: Exam Narrative: General: WD/WN AA male intubated Heart: normal S1 and S2; no rub Lungs: decreased at bases Abdomen: soft, nontender, nondistended, positive bowel sounds Extremities: no cyanosis or clubbing; no edema Skin: no rash or nodules Objective Data Vital Signs Vital Signs: Vital Signs Temp Pulse Resp BP Pulse Ox 01/25/21 10:58 121 H 91 01/25/21 10:00 131 H 24 H 121/59 L 90 01/25/21 09:32 127 H 24 H 01/25/21 09:17 121 H 25 H 01/25/21 09:12 121 H 91 01/25/21 09:04 120 H 30 H 01/25/21 08:00 37.2 C 122 H 24 H 154/77 H 96 01/25/21 06:18 112 H 24 H 01/25/21 06:17 114 H 26 H 01/25/21 06:00 36.8 C 112 H 24 H 121/86 96 01/25/21 05:10 93 24 H 01/25/21 05:00 105 H 96 01/25/21 04:00 36.8 C 100 24 H 132/65 94 01/25/21 03:29 114 H 26 H 01/25/21 03:18 108 H 24 H 93 01/25/21 02:30 122 H 22 H 01/25/21 02:26 120 H 96 01/25/21 02:00 37.3 C 120 H 28 H 139/64 97 01/25/21 01:59 37.5 C 01/25/21 00:00 37.5 C 109 H 24 H 148/73 H 96 01/24/21 23:29 115 H 25 H 96 01/24/21 23:12 37.9 C H 01/24/21 23:04 116 H 96 01/24/21 22:19 124 H 28 H 01/24/21
[2021-01-25] MEDS: MEPERIDINE HCL INJ (*CRX) 50 MG/ML AMPUL 25 MG IV PUSH ×2 (12:20→20:28)
[2021-01-25] MEDS: INSULIN HUMAN REGULAR (*BKC) 100 UNITS in SODIUM CHLORIDE 0.9% IV 99 ML 13.8 UNITS IV CONT (13:02)
[2021-01-25 13:11] LABS: Creatine Kinase 693 U/L (55-170)
[2021-01-25 15:07] LABS: Glucose Point of Care 163 mg/dl (65-105)
[2021-01-25 15:07] LABS: Glucose Point of Care 174 mg/dl (65-105)
[2021-01-25 15:07] LABS: Glucose Point of Care 114 mg/dl (65-105)
[2021-01-25 15:07] LABS: Glucose Point of Care 132 mg/dl (65-105)
[2021-01-25 15:07] LABS: Glucose Point of Care 201 mg/dl (65-105)
[2021-01-25] MEDS: INSULIN HUMAN REGULAR (*BKC) 100 UNITS in SODIUM CHLORIDE 0.9% IV 99 ML 19.9 UNITS IV CONT (18:44)
[2021-01-25 19:44] LABS: Glucose Point of Care 202 mg/dl (65-105)
[2021-01-25 19:44] LABS: Glucose Point of Care 176 mg/dl (65-105)
[2021-01-25] MEDS: PROPOFOL IV EMULSION 100 ML 3.99 MG IV CONT (20:12)
[2021-01-25 20:41] LABS: Glucose Point of Care 138 mg/dl (65-105)
[2021-01-25 20:41] LABS: Glucose Point of Care 133 mg/dl (65-105)
[2021-01-25 21:38] LABS: Glucose Point of Care 134 mg/dl (65-105)
[2021-01-25 22:52] LABS: Glucose Point of Care 143 mg/dl (65-105)
[2021-01-26] VITALS (41 sets, daily range): BP systolic 102–145; BP diastolic 52–79; PULSE 75–125; RESP 24–35; TEMP 36.3–38.2; O2SAT 96–100
[2021-01-26 00:04] LABS: Glucose Point of Care 137 mg/dl (65-105)
[2021-01-26] MEDS: MEPERIDINE HCL INJ (*CRX) 50 MG/ML AMPUL 25 MG IV PUSH ×3 (00:53→09:25)
[2021-01-26] MEDS: IPRATROPIUM BR 0.02% INH SOLN 0.5 MG/2.5 ML VIAL INHALATION ×4 (01:32→19:57)
[2021-01-26] MEDS: LEVALBUTEROL NEB 1.25 MG/3 ML 0.63 MG INHALATION ×4 (01:33→20:00)
[2021-01-26] MEDS: FENTANYL 2,500MCG/NS250ML(*CRX 2,500 MCG/250 ML BAG 12.5 MCG IV CONT (03:05)
[2021-01-26] MEDS: PROPOFOL IV EMULSION 100 ML 11.98 MG IV CONT (03:06)
[2021-01-26] MEDS: INSULIN HUMAN REGULAR (*BKC) 100 UNITS in SODIUM CHLORIDE 0.9% IV 99 ML 9.1 UNITS IV CONT (03:55)
[2021-01-26 04:09] LABS: Hematocrit 27.9 % (42.0-52.0); Mean Corpuscular HGB Conc 32.3 g/dl (32-36); Mean Corpuscular Hemoglobin 26.2 pg (26-34); Mean Corpuscular Volume 81.3 fl (80-100); Mean Platelet Volume 11.1 fl (7.4-10.4); Platelet Count Result 281 k/mm3 (150-375); Red Blood Count 3.43 M/mm3 (4.6-6.20); Red Cell Distribution Width 13.8 % (11.5-14.5); White Blood Count 22.6 K/mm3 (4.5-10.0)
[2021-01-26 04:18] LABS: Glucose Point of Care 125 mg/dl (65-105)
[2021-01-26 04:18] LABS: Glucose Point of Care 129 mg/dl (65-105)
[2021-01-26 04:18] LABS: Glucose Point of Care 116 mg/dl (65-105)
[2021-01-26 04:18] LABS: Alanine Aminotransferase 38 U/L (4-50); Albumin Level 3.1 g/dL (3.5-5.1); Alkaline Phosphatase 109 U/L (38-126); Anion Gap 11 mmol/L (8-16); Aspartate Amino Transferase 79 U/L (17-59); Bilirubin,Total 0.2 mg/dL (0.2-1.3); Blood Urea Nitrogen 117 mg/dL (9-20); Calcium 9.8 mg/dL (8.4-10.2); Carbon Dioxide 22 mmol/L (22-30); Chloride 115 mmol/L (98-107); Estimated CRCL calculation 19 ml/min; Estimated Glomerular Filt Rate 11; Glucose 123 mg/dL (75-110); Magnesium 3.3 mg/dL (1.6-2.3); Phosphorus 4.2 mg/dL (2.5-4.5); Potassium 4.8 mmol/L (3.4-5.0); Sodium 148 mmol/L (137-145)
[2021-01-26 04:18] LABS: Glucose Point of Care 116 mg/dl (65-105)
[2021-01-26 04:19] LABS: Lactic Acid Reflex 0.9 mmol/L (0.7-2.1)
[2021-01-26 04:53] LABS: Base Excess ABG -3.4 mEq/l (+/-2.0); Fractional Inspired Oxygen 45 %; HCO3 ABG 21.6 mEq/l (22.0-26.0); Oxygen Content ABG 15.2 %vol (16.0-22.0); Oxygen Saturation ABG 92.4 % (95.0-100.0); Oxyhemoglobin 92.5 % THb (90.0-100.0); PCO2 ABG 38.9 mmHg (35.0-45.0); PO2 ABG 65.6 mmHg (80.0-100.0); PO2 FiO2 Ratio Arterial Blood 1.46 %; Total Hemoglobin 11.7 g/dL (12.0-18.0); pH ABG 7.363 (7.350-7.450)
[2021-01-26 04:55] LABS: Device VENTILATOR; Modified Allen's Test Pass; Site Drawn RIGHT RADIAL
[2021-01-26 04:56] LABS: Arterial Blood Gas PEEP 5 cmH2O; Arterial Blood Gas Tidal Volume 500 ml; Arterial Blood Gas Vent Mode CMV; Arterial Blood Gas Ventilator rate 24 /MIN
[2021-01-26] MEDS: CENTRAL LINE FLUSH 10 ML IV PUSH ×4 (05:14→21:24)
[2021-01-26] MEDS: ACETAMINOPHEN ELIXIR 325 MG/10.15 ML UDC 650 MG PO (06:25)
[2021-01-26 06:31] LABS: Glucose Point of Care 105 mg/dl (65-105)
[2021-01-26 06:38] LABS: Glucose Point of Care 94 mg/dl (65-105)
[2021-01-26 07:07] LABS: Glucose Point of Care 125 mg/dl (65-105)
[2021-01-26] MEDS: PANTOPRAZOLE SODIUM IV 40 MG VIAL IV PUSH ×2 (08:18→20:38)
[2021-01-26] MEDS: HEPARIN SODIUM 5,000 UNITS/ML VIAL 5000 UNITS SUB-Q ×2 (08:19→20:38)
[2021-01-26] MEDS: MINERAL OIL/WHITE PETROLATUM OINTMENT 1 APPLIC EACH EYE ×2 (08:19→20:38)
[2021-01-26] MEDS: CEFEPIME 1 GM in DEXTROSE 5% IN WATER 50 ML IVPB (08:27)
[2021-01-26] MEDS: levETIRAcetam 500MG/NACL 100ML 500 MG/100 ML BAG 400 MG IVPB ×2 (08:27→20:37)
--- NOTE | 2021-01-26 08:41 | WPDINTPN ---
Progress Note: A&P Assessment and Plan (1) Acute respiratory failure: Code(s): J96.00 - Acute respiratory failure, unspecified whether with hypoxia or hypercapnia Status: Acute Assessment and Plan: Patient with acute respiratory failure, intubated on 01/21/2021 due to mental status changes and emesis, to protect his airway. - Chest x-ray and ABGs reviewed, currently on 45% FiO2 and peep of 5. - continue bronchodilators - sedated with fentanyl and propofol infusion, with daily sedation vacation. for said was transition to propofol - sputum culture is growing yeast which probably is likely contaminant or colonizer (2) DKA (diabetic ketoacidoses): Qualifiers: Diabetes mellitus complication detail: without coma Diabetes mellitus type: type 2 Qualified Code(s): E11.10 - Type 2 diabetes mellitus with ketoacidosis without coma Code(s): E11.10 - Type 2 diabetes mellitus with ketoacidosis without coma Status: Acute Assessment and Plan: patient presented with blood sugars of 1746, anion gap metabolic acidosis, elevated beta hydroxybutyrate. - Was given adequate amount of IV fluids, continuing maintenance IV fluids per DKA protocol - hemoglobin A1c is >14 this admission - patient's anion gap has closed and he is on insulin infusion for hyperglycemia. IV fluids have been discontinued as patient is overall volume overloaded now - continue Lantus and try to wean off insulin drip - once insulin requirement is down will transition to subcu insulin (3) COVID-19: Code(s): U07.1 - COVID-19 Status: Acute Assessment and Plan: according the records patient was positive for COVID-19 on a home COVID-19 test kit. - COVID PCR was positive in the hospital - continue droplet, airborne, contact isolation/precautions - although it is not a classical presentation of COVID-19 considering the patient is on supplemental oxygen and has abnormal chest x-ray, patient was started on dexamethasone 01/24 (4) Acute renal failure: Qualifiers: Acute renal failure type: unspecified Qualified Code(s): N17.9 - Acute kidney failure, unspecified Code(s): N17.9 - Acute kidney failure, unspecified Status: Acute Assessment and Plan: patient presented with acute kidney injury, lactic acidosis, hyperkalemia, likely related to possible decreased volume intake, hypotension/ATN, dehydration due to elevated sugars - patient has been adequately fluid-resuscitated 4 L fluid bolus, and continuing maintenance IV fluids per DKA protocol- - nephrology following - 01/23 hemodialysis temporary catheter was placed in left IJ location. environmental technical officer was unable to perform dialysis due to issues with catheter last night. 01/24 I was able to flush and draw blood from each port. hemodialysis was again attempted in the afternoon and 1 port was still not working. I changed the dialysis catheter over guidewire to a new 20 cm catheter. hemodialysis was again in attempted in the evening. I was called by nurse stating that patient again had issues with 1 port of the dialysis catheter. dialysis was again unsuccessful due. I requested nurse to remove the dialysis catheter altogether and I was planning to place a new one today at a different site. - overnight patient's urine output has improved and he had 600 mL urine output yesterday but over 1 L overnight. his potassium is normal in BUN and creatinine are stable. - discussed with nephrology. plan was to hold dialysis for another 24 hours and see if patient continues to improve and patient was given 80 mg of Lasix IV x1 - 01/26 significantly improved urine output with more than 3 L of urine output. BUN and creatinine are essentially same. continue to monitor - Renal ultrasound was unremarkable, no stones, masses or hydronephrosis - will maintain mean arteria l pressures > 70 mmHg for adequate renal perfusion - increase free water for hyper chloremia
[2021-01-26 09:11] LABS: Lipase 493 U/L (23-300)
[2021-01-26] MEDS: PROPOFOL IV EMULSION 100 ML 15.97 MG IV CONT (09:35)
--- NOTE | 2021-01-26 09:49 | PC.NURSE ---
Patient to CT with RN, RT and transporter x2.
--- NOTE | 2021-01-26 10:21 | P.PNNP_ITS ---
Progress Note: A&P Assessment and Plan (1) DB (acute kidney injury): Code(s): N17.9 - Acute kidney failure, unspecified Status: Acute Assessment and Plan: * unclear what baseline creatinine normally runs * given his poorly controlled diabetes, he may have some underlying CKD * suspect DB due to decreased volume intake/volume depletion, hypotension, and hyperglycemia * renal ultrasound normal and urine electrolytes c/w pre-renal azotemia * continue to hold dialysis given increased urine output with stable pilar ctrolytes along with downward trend of BUN + creatinine * diuretic trial today and reassess tomorrow if dialysis needed * follow trend of repeat labs and UOP in the hopes of renal recovery (2) Hyperkalemia: Code(s): E87.5 - Hyperkalemia Status: Acute Assessment and Plan: * due to combination of metabolic acidosis + uremia + acute kidney injury + re nal hypoperfusion * doing much better * follow trend (3) Hypernatremia: Code(s): E87.0 - Hyperosmolality and hypernatremia Status: Acute Assessment and Plan: * due to free water deficit and insensible losses (fever) * start free water flushes to compensate * follow repeat sodium levels (4) Septic shock: Code(s): A41.9 - Sepsis, unspecified organism; R65.21 - Severe sepsis with septic shock Status: Acute Assessment and Plan: * criteria of leukocytosis, lactic acidosis, and hypotension along with DB/ARF * no clear source as of yet (CXR and UA unrevealing) but continues to be febrile * repeat CT scan today given persistent fevers * follow culture data * empiric antibiotics * off vasopressor therapy (5) Acute respiratory failure: Code(s): J96.00 - Acute respiratory failure, unspecified whether with hypoxia or hypercapnia Status: Acute Assessment and Plan: * due to altered mental status, emesis, and inability to protect airway * follow CXR and ABGs * wean when more stable (6) DKA (diabetic ketoacidoses): Qualifiers: Diabetes mellitus complication detail: without coma Diabetes mellitus type: type 2 Qualified Code(s): E11.10 - Type 2 diabetes mellitus with ketoacidosis without coma Code(s): E11.10 - Type 2 diabetes mellitus with ketoacidosis without coma Status: Acute Assessment and Plan: * admitted with hyperglycemia, high anion gap acidosis and elevated BHOB * s/p aggressive IVF resuscitation * A1c quite elevated * attempting to wean insulin gtt (7) COVID-19: Code(s): U07.1 - COVID-19 Status: Acute Assessment and Plan: * tested positive by home kit * rechecked here and positive as well * respiratory/contact/droplet isolation * on steroid therapy Will continue to follow. Subjective Date/time seen: 01/26/21 10:21 Good response to IV diuretic trial yesterday and continues to make reasonable urine output with relative stability in BUN and creatinine; febrile overnight/early this AM with tachycardia; further imaging today given ongoing fevers; remains on mechanical ventilation. Exam Narrative: Exam Narrative: General: WD/WN AA male intubated Heart: normal S1 and S2; no rub Lungs: decreased at bases Abdomen: soft, nontender, nondistended, positive bowel sounds Extremities: no cyanosis or clubbing; no edema Skin: warm and dry Objective Data Vital Signs Vital Signs: Vital Signs Temp Pulse Resp
--- NOTE | 2021-01-26 10:21 | PM.PNNEP ---
Progress Note: A&P Assessment and Plan (1) DB (acute kidney injury): Code(s): N17.9 - Acute kidney failure, unspecified Status: Acute Assessment and Plan: unclear what baseline creatinine normally runs given his poorly controlled diabetes, he may have some underlying CKD suspect DB due to decreased volume intake/volume depletion, hypotension, and hyperglycemia renal ultrasound normal and urine electrolytes c/w pre-renal azotemia continue to hold dialysis given increased urine output with stable electrolytes along with downward trend of BUN + creatinine diuretic trial today and reassess tomorrow if dialysis needed follow trend of repeat labs and UOP in the hopes of renal recovery (2) Hyperkalemia: Code(s): E87.5 - Hyperkalemia Status: Acute Assessment and Plan: due to combination of metabolic acidosis + uremia + acute kidney injury + renal hypoperfusion doing much better follow trend (3) Hypernatremia: Code(s): E87.0 - Hyperosmolality and hypernatremia Status: Acute Assessment and Plan: due to free water deficit and insensible losses (fever) start free water flushes to compensate follow repeat sodium levels (4) Septic shock: Code(s): A41.9 - Sepsis, unspecified organism; R65.21 - Severe sepsis with septic shock Status: Acute Assessment and Plan: criteria of leukocytosis, lactic acidosis, and hypotension along with DB/ARF no clear source as of yet (CXR and UA unrevealing) but continues to be febrile repeat CT scan today given persistent fevers follow culture data empiric antibiotics off vasopressor therapy (5) Acute respiratory failure: Code(s): J96.00 - Acute respiratory failure, unspecified whether with hypoxia or hypercapnia Status: Acute Assessment and Plan: due to altered mental status, emesis, and inability to protect airway follow CXR and ABGs wean when more stable (6) DKA (diabetic ketoacidoses): Qualifiers: Diabetes mellitus complication detail: without coma Diabetes mellitus type: type 2 Qualified Code(s): E11.10 - Type 2 diabetes mellitus with ketoacidosis without coma Code(s): E11.10 - Type 2 diabetes mellitus with ketoacidosis without coma Status: Acute Assessment and Plan: admitted with hyperglycemia, high anion gap acidosis and elevated BHOB s/p aggressive IVF resuscitation A1c quite elevated attempting to wean insulin gtt (7) COVID-19: Code(s): U07.1 - COVID-19 Status: Acute Assessment and Plan: tested positive by home kit rechecked here and positive as well respiratory/contact/droplet isolation on steroid therapy Will continue to follow. Subjective Date/time seen: 01/26/21 10:21 Good response to IV diuretic trial yesterday and continues to make reasonable urine output with relative stability in BUN and creatinine; febrile overnight/early this AM with tachycardia; further imaging today given ongoing fevers; remains on mechanical ventilation. Exam Narrative: Exam Narrative: General: WD/WN AA male intubated Heart: normal S1 and S2; no rub Lungs: decreased at bases Abdomen: soft, nontender, nondistended, positive bowel sounds Extremities: no cyanosis or clubbing; no edema Skin: warm and dry Objective Data Vital Signs Vital Signs: Vital Signs Temp Pulse Resp BP Pulse Ox 01/26/21 09:07 115 H 25 H 01/26/21 08:36 111 H 24 H 01/26/21 08:00 37.7 C H 100 24 H 118/60 96 01/26/21 07:54 102 H 24 H 96 01/26/21 07:25 38.1 C H 01/26/21 06:25 38.2 C H 01/26/21 06:00 38.1 C H 121 H 26 H 144/79 H 100 01/26/21 05:30 120 H 100 01/26/21 04:00 37.9 C H 123 H 24 H 145/77 H 98 01/26/21 03:05 120 H 24 H 01/26/21 02:47 120 H 24 H 01/26/21 02:00 38.1 C H 121 H 24 H 126/61 100 01/26/21 01:46 117 H 26 H 01/26/21 01:34 113 H 24 H 100
--- NOTE | 2021-01-26 11:06 | PCDIET ---
ICU Rounding Note: Patient had NG removed and OG placed. Glucerna 1.2 to resume which was previously tolerated well. Once back at goal rate, would consider gradually advancing toward 75mL/hr for 1980kcal (2296kcal with Propofol at current rate) and 99g protein. Last recorded weight is 130.8kg which is down from last review. I/O slightly negative. Bowel Motility: No BM. MD planning to add Miralax. Labs Reviewed: WBC (22.6), RBC (3.43), Hgb (9.0), Hct (27.9), Glu (123), BUN (117), Cr (7.2), Na (148), Cl (115), Alb (3.1), Mg (3.3) Meds Noted: Cefepime, Atrovent, Decadron, Xopenex, Fentanyl, Versed, Aspart, Levophed, Protonix, Propofol (rate of 11.98mL/hr provides 316kcal per day) Additional Notes: No documented skin breakdown. Following daily in ICU rounds. Assessing/reassessing every Saturday/Saturday.
[2021-01-26] MEDS: polyethylene glycoL 3350 17 GM POWD.PACK PO (11:32)
[2021-01-26 11:46] LABS: Lactate Dehydrogenase 1409 U/L (313-618)
[2021-01-26 11:57] LABS: CRP 23.4 mg/dL (<1.0)
[2021-01-26 12:01] LABS: Glucose Point of Care 146 mg/dl (65-105)
[2021-01-26 12:01] LABS: Glucose Point of Care 142 mg/dl (65-105)
[2021-01-26 12:01] LABS: Glucose Point of Care 125 mg/dl (65-105)
[2021-01-26 12:01] LABS: Glucose Point of Care 165 mg/dl (65-105)
[2021-01-26] MEDS: PROPOFOL IV EMULSION 100 ML 35.94 MG IV CONT ×5 (12:40→23:28)
[2021-01-26 13:26] LABS: Glucose Point of Care 147 mg/dl (65-105)
[2021-01-26] MEDS: INSULIN HUMAN REGULAR (*BKC) 100 UNITS in SODIUM CHLORIDE 0.9% IV 99 ML 10.9 UNITS IV CONT (14:15)
--- NOTE | 2021-01-26 16:27 | PM.IMPN ---
Progress Note: A&P Assessment and Plan (1) Hyperosmolar coma due to secondary diabetes: Code(s): E13.01 - Other specified diabetes mellitus with hyperosmolarity with coma Status: Acute Assessment and Plan: Sugar is better no continue with insulin drip monitor blood sugar as per ICU protocol A1c noted to be more than 14 (2) High anion gap metabolic acidosis: Code(s): E87.2 - Acidosis Status: Acute Assessment and Plan: improved With improved glycemia as well as the hemodialysis (3) Acute respiratory failure: Code(s): J96.00 - Acute respiratory failure, unspecified whether with hypoxia or hypercapnia Status: Acute Assessment and Plan: patient is intubated on the ventilator at this time Related to pneumonia Intubated on 01/21/2021 Continue vent management per ICU (4) Acute renal failure: Qualifiers: Acute renal failure type: unspecified Qualified Code(s): N17.9 - Acute kidney failure, unspecified Code(s): N17.9 - Acute kidney failure, unspecified Status: Acute Assessment and Plan: consult nephrology Presented with acute kidney injury, lactic acidosis, hyperkalemia initially fluid resuscitated. She was started on hemodialysis per nephrology team. Renal ultrasound was unremarkable with no stones masses or hydronephrosis Urine output currently decent however renal parameters still elevated (5) COVID-19: Code(s): U07.1 - COVID-19 Status: Acute Assessment and Plan: confirmatory test COVID positive On droplet isolation Started on dexamethasone 01/24 CT chest done this morning confirms pneumonic consolidation (6) History of seizure disorder: Code(s): Z86.69 - Personal history of other diseases of the nervous system and sense organs Status: Acute Assessment and Plan: consider neurology consultation and EEG (7) Hypernatremia: Code(s): E87.0 - Hyperosmolality and hypernatremia Status: Acute Assessment and Plan: mild continue to monitor (8) Hyperkalemia: Code(s): E87.5 - Hyperkalemia Status: Acute Assessment and Plan: resolved with hemodialysis (9) DVT prophylaxis: Code(s): Z29.9 - Encounter for prophylactic measures, unspecified Status: Acute Assessment and Plan: on heparin subcu (10) Septic shock: Code(s): A41.9 - Sepsis, unspecified organism; R65.21 - Severe sepsis with septic shock Status: Acute (11) Fever: Code(s): R50.9 - Fever, unspecified Status: Acute Assessment and Plan: continues to have fever on broad-spectrum antibiotics repeat cultures done on 01/25 which is pending Lipase level elevated Subjective Date/time seen: 01/26/21 16:27 Interval history: patient is intubated, and sedated. remains febrile antibiotics changed per manager imaging team CT chest abdomen pelvis done for evaluation which showed pneumonia Review of Systems Review of Systems: ROS unobtainable: Yes unobtainable due to medical condition ( ALTERED MENTAL STATUS ON VENTILATOR SUPPORT) Exam Narrative: Exam Narrative: Const: sedated and vented, not in distress HENMT: Other: ETT in place Neck: Neck: supple Resp: on vent coarse breath sounds heard bilaterally equal air entry Cardio: Rate: regular rate and rhythm GI: soft nondistended normal bowel sound : Other: Botello catheter in place with clear urine in bag Skin: normal color and no rashes or lesions noted Neuro: intubated and sedated Extrem: no edema cyanosis clubbing Objective Data Vital Signs Vital Signs: Vital Signs - 24 hr 01/25/21 17:08 01/25/21 18:00 01/25/21 19:54 Temperature 100.6 F H Pulse Rate 112 H 125 H 126 H Respiratory Rate 24 H 25 H Blood Pressure 141/68 H Pulse Oximetry 94 95 01/25/21 19:59 01/25/21 20:00 01/25/21 20:05 Temperature 101.2 F H Pulse Rate 123 H 124 H 123 H Respi
[2021-01-26 16:41] LABS: Anion Gap 10 mmol/L (8-16); Blood Urea Nitrogen 113 mg/dL (9-20); Calcium 9.7 mg/dL (8.4-10.2); Carbon Dioxide 20 mmol/L (22-30); Chloride 114 mmol/L (98-107); Estimated CRCL calculation 21 ml/min; Estimated Glomerular Filt Rate 12; Glucose 274 mg/dL (75-110); Magnesium 3.3 mg/dL (1.6-2.3); Phosphorus 5.4 mg/dL (2.5-4.5); Potassium 5.3 mmol/L (3.4-5.0); Sodium 144 mmol/L (137-145)
[2021-01-26] MEDS: INSULIN GLARGINE (*BKC) 100 UNITS/ML 50 UNITS SUB-Q (18:11)
[2021-01-26] MEDS: SODIUM POLYSTYRENE SULFONONATE 15 GM/60 ML BTL 30 GM FEED TUBE (18:12)
[2021-01-26] MEDS: INSULIN HUMAN REGULAR (*BKC) 100 UNITS in SODIUM CHLORIDE 0.9% IV 99 ML 21.1 UNITS IV CONT (19:00)
[2021-01-26 21:28] LABS: Glucose Point of Care 249 mg/dl (65-105)
[2021-01-26 21:28] LABS: Glucose Point of Care 215 mg/dl (65-105)
[2021-01-26 21:28] LABS: Glucose Point of Care 144 mg/dl (65-105)
[2021-01-26 21:28] LABS: Glucose Point of Care 149 mg/dl (65-105)
[2021-01-26 21:28] LABS: Glucose Point of Care 184 mg/dl (65-105)
[2021-01-26 21:28] LABS: Glucose Point of Care 155 mg/dl (65-105)
[2021-01-26 21:28] LABS: Glucose Point of Care 246 mg/dl (65-105)
[2021-01-26 21:28] LABS: Glucose Point of Care 264 mg/dl (65-105)
[2021-01-26 22:21] LABS: Glucose Point of Care 127 mg/dl (65-105)
[2021-01-26 23:34] LABS: Glucose Point of Care 117 mg/dl (65-105)
[2021-01-27] VITALS (35 sets, daily range): BP systolic 103–144; BP diastolic 55–106; PULSE 84–131; RESP 23–27; TEMP 37.1–38.1; O2SAT 94–99
[2021-01-27] MEDS: LORazepam INJ (*CRX) 2 MG/ML VIAL IV PUSH ×2 (01:21→21:06)
[2021-01-27] MEDS: IPRATROPIUM BR 0.02% INH SOLN 0.5 MG/2.5 ML VIAL INHALATION ×4 (02:33→21:17)
[2021-01-27] MEDS: LEVALBUTEROL NEB 1.25 MG/3 ML 0.63 MG INHALATION ×4 (02:34→21:17)
[2021-01-27] MEDS: INSULIN HUMAN REGULAR (*BKC) 100 UNITS in SODIUM CHLORIDE 0.9% IV 99 ML 9.3 UNITS IV CONT (02:39)
[2021-01-27] MEDS: PROPOFOL IV EMULSION 100 ML 39.93 MG IV CONT ×9 (02:40→22:04)
[2021-01-27] MEDS: MEPERIDINE HCL INJ (*CRX) 50 MG/ML AMPUL IV PUSH (03:15)
[2021-01-27 03:27] LABS: Glucose Point of Care 121 mg/dl (65-105)
[2021-01-27 03:27] LABS: Glucose Point of Care 115 mg/dl (65-105)
[2021-01-27 03:27] LABS: Glucose Point of Care 94 mg/dl (65-105)
[2021-01-27 03:27] LABS: Glucose Point of Care 115 mg/dl (65-105)
[2021-01-27 04:50] LABS: Hemoglobin 8.8 g/dL (14.0-18.0); Mean Corpuscular HGB Conc 32.6 g/dl (32-36); Mean Corpuscular Hemoglobin 26.7 pg (26-34); Mean Corpuscular Volume 82.1 fl (80-100); Mean Platelet Volume 10.6 fl (7.4-10.4); Platelet Count Result 339 k/mm3 (150-375); Red Blood Count 3.29 M/mm3 (4.6-6.20); Red Cell Distribution Width 14.1 % (11.5-14.5); White Blood Count 27.1 K/mm3 (4.5-10.0)
[2021-01-27 05:01] LABS: Alanine Aminotransferase 203 U/L (4-50); Albumin Level 3.1 g/dL (3.5-5.1); Alkaline Phosphatase 210 U/L (38-126); Anion Gap 9 mmol/L (8-16); Aspartate Amino Transferase 436 U/L (17-59); Bilirubin,Total 0.3 mg/dL (0.2-1.3); Blood Urea Nitrogen 109 mg/dL (9-20); Calcium 9.9 mg/dL (8.4-10.2); Carbon Dioxide 24 mmol/L (22-30); Chloride 117 mmol/L (98-107); Estimated CRCL calculation 23 ml/min; Estimated Glomerular Filt Rate 14; Glucose 107 mg/dL (75-110); Magnesium 3.2 mg/dL (1.6-2.3); Phosphorus 5.9 mg/dL (2.5-4.5); Potassium 4.5 mmol/L (3.4-5.0); Sodium 150 mmol/L (137-145)
[2021-01-27] MEDS: CENTRAL LINE FLUSH 10 ML IV PUSH ×4 (05:02→20:05)
[2021-01-27 05:28] LABS: Alveolar/Arterial O2 Gradient 259.1 mmHg; Fractional Inspired Oxygen 50 %; HCO3 ABG 22.1 mEq/l (22.0-26.0); Oxygen Content ABG 11.2 %vol (16.0-22.0); Oxyhemoglobin 86.3 % THb (90.0-100.0); PO2 ABG 52.4 mmHg (80.0-100.0); PO2 FiO2 Ratio Arterial Blood 1.05 %; Total Hemoglobin 9.2 g/dL (12.0-18.0); pH ABG 7.361 (7.350-7.450)
[2021-01-27 05:31] LABS: Glucose Point of Care 106 mg/dl (65-105)
[2021-01-27 05:31] LABS: Glucose Point of Care 86 mg/dl (65-105)
[2021-01-27 05:37] LABS: Device VENTILATOR; Modified Allen's Test Pass; Oxygen Saturation ABG 85.9 % (95.0-100.0); Site Drawn RIGHT RADIAL
[2021-01-27 05:38] LABS: Arterial Blood Gas Vent Mode CMV; Arterial Blood Gas Ventilator rate 24 /MIN
[2021-01-27 05:39] LABS: Arterial Blood Gas PEEP 10 cmH2O; Arterial Blood Gas Tidal Volume 500 ml
[2021-01-27 06:01] LABS: Alveolar/Arterial O2 Gradient 233.4 mmHg; Carboxyhemoglobin 0.2 % THb (0-2.0); Device VENTILATOR; Fractional Inspired Oxygen 50 %; HCO3 ABG 22.5 mEq/l (22.0-26.0); Methemoglobin ABG 0.5 %THb (0-1.5); Modified Allen's Test Pass; Oxygen Saturation ABG 94.7 % (95.0-100.0); Oxyhemoglobin 93.4 % THb (90.0-100.0); PCO2 ABG 41.7 mmHg (35.0-45.0); PO2 ABG 76.2 mmHg (80.0-100.0); PO2 FiO2 Ratio Arterial Blood 1.52 %; Reduced Hemoglobin 5.9 %THb (0-5.0); Site Drawn LEFT RADIAL; Total Hemoglobin 10.6 g/dL (12.0-18.0); pH ABG 7.349 (7.350-7.450)
[2021-01-27 06:02] LABS: Arterial Blood Gas PEEP 10 cmH2O; Arterial Blood Gas Tidal Volume 500 ml; Arterial Blood Gas Vent Mode CMV; Arterial Blood Gas Ventilator rate 24 /MIN
[2021-01-27] MEDS: FENTANYL 2,500MCG/NS250ML(*CRX 2,500 MCG/250 ML BAG 10 MCG IV CONT (06:06)
[2021-01-27 06:23] LABS: Glucose Point of Care 204 mg/dl (65-105)
[2021-01-27 07:08] LABS: Glucose Point of Care 219 mg/dl (65-105)
--- NOTE | 2021-01-27 07:51 | WPDINTPN ---
Progress Note: A&P Assessment and Plan (1) Acute respiratory failure: Code(s): J96.00 - Acute respiratory failure, unspecified whether with hypoxia or hypercapnia Status: Acute Assessment and Plan: Patient with acute respiratory failure, intubated on 01/21/2021 due to mental status changes and emesis, to protect his airway. - 01/26 Patient desaturated when repositioned for CT scan yesterday. He had to be bagged when cleared for prolonged period of time to get his saturations up. sedation was increased to prevent patient ventilator dyssynchrony. patient had purulent discharge coming out of his nose. NG tube was removed and OG tube was placed. continues to be sedated and on mechanical ventilation. Peep was increased to 10 and FiO2 to 100% which has been now weaned down to 50% -01/26 CT Chest showed IMPRESSION: 1. Patchy bilateral lung disease consistent with COVID pneumonia. 2. Mild likely reactive mediastinal lymphadenopathy. - Chest x-ray and ABGs reviewed, currently on 50% FiO2 and peep of 10. - continue bronchodilators - sedated with fentanyl and propofol infusion, with daily sedation vacation. - Sputum culture is growing yeast which probably is likely contaminant or colonizer - on empiric Zosyn - COVID-19 is being treated with dexamethasone (2) Sinusitis: Code(s): J32.9 - Chronic sinusitis, unspecified Status: Acute (3) Pneumonia due to COVID-19 virus: Code(s): U07.1 - COVID-19; J12.82 - Pneumonia due to coronavirus disease 2018 Status: Acute Assessment and Plan: according the records patient was positive for COVID-19 on a home COVID-19 test kit. - COVID PCR was positive in the hospital - continue droplet, airborne, contact isolation/precautions - although it is not a classical presentation of COVID-19 considering the patient is on supplemental oxygen and has abnormal chest x-ray, patient was started on dexamethasone 01/24. CT chest done yesterday confirmed bilateral infiltrates. Continue dexamethasone - patient not a candidate for redness severe due to acute renal failure - monitor inflammatory markers (4) Septic shock: Code(s): A41.9 - Sepsis, unspecified organism; R65.21 - Severe sepsis with septic shock Status: Acute Assessment and Plan: patient presented with elevated WBC count, lactic acidosis, hypotension and was diagnosed with septic shock - chest x-ray and UA were clear on presentation, source of infection unknown - blood cultures and sputum cultures negative to date except [place] - patient was on cefepime and vancomycin. vancomycin was discontinued due to negative blood cultures. - patient was noted to have purulent discharge from his nostrils and CT sinuses confirmed extensive sinusitis. IMPRESSION: 1. Extensive opacification of the paranasal sinuses and nasal cavity, predominantly new from 01/21/2021, which may be secondary to the presence of the nasogastric tube and endotracheal tube - NG tube was removed and replaced with OG tube. Antibiotics were changed to Zosyn - repeat cultures were sent 01/25 -01/26 CT Chest showed bilateral pneumonia IMPRESSION: 1. Patchy bilateral lung disease consistent with COVID pneumonia. 2. Mild likely reactive mediastinal lymphadenopathy. - of Levophed at this time - leukocytosis can be secondary to Dexamethasone the patient is on - (5) DKA (diabetic ketoacidoses): Qualifiers: Diabetes mellitus complication detail: without coma Diabetes mellitus type: type 2 Qualified Code(s): E11.10 - Type 2 diabetes mellitus with ketoacidosis without coma Code(s): E11.10 - Type 2 diabetes mellitus with ketoacidosis without coma Status: Acute Assessment and Plan: patient presented with blood sugars of 1746, anion gap metabolic acidosis, elevated beta hydroxybutyrate. - Was given adequate amount of IV fluids, continuing maintenance IV fluids per DKA protocol - hemoglobin A1c is >14
[2021-01-27] MEDS: INSULIN GLARGINE (*BKC) 100 UNITS/ML 50 UNITS SUB-Q ×2 (08:55→20:04)
[2021-01-27 08:57] LABS: Add Urine Microscopic? YES; Appearance Urine Turbid (Clear); Bacteria Urine 1+ /hpf; Bilirubin Urine Negative (Negative); Blood Urine 2+ (Negative); Budding Yeast Urine Present /hpf; Color Urine Yellow (Yellow); Glucose Urine UA 1+ mg/dL (Negative); Ketones Urine Negative (Negative); Leukocyte Esterase Ur 2+ LEU/UL (Negative); Mucus Urine Rare /lpf; Nitrate Urine Negative (Negative); Protein Urine 2+ mg/dL (Negative); RBC Urine 51-75 /hpf (0-2); Specific Grav Ur 1.015 (1.001-1.035); Squamous Epithelial Cell Urine Occasional /hpf (Few); Urobilinogen Urine Negative mg/dL (<2.0); WBC Urine 16-20 /hpf
[2021-01-27] MEDS: PANTOPRAZOLE SODIUM IV 40 MG VIAL IV PUSH ×2 (08:58→20:05)
[2021-01-27] MEDS: HEPARIN SODIUM 5,000 UNITS/ML VIAL 5000 UNITS SUB-Q ×2 (08:58→20:05)
[2021-01-27] MEDS: polyethylene glycoL 3350 17 GM POWD.PACK PO (09:01)
[2021-01-27] MEDS: levETIRAcetam 500MG/NACL 100ML 500 MG/100 ML BAG 400 MG IVPB ×2 (09:01→20:04)
[2021-01-27] MEDS: MINERAL OIL/WHITE PETROLATUM OINTMENT 1 APPLIC EACH EYE ×2 (09:01→20:05)
--- NOTE | 2021-01-27 10:54 | PCDIET ---
Nutrition Follow-Up Complete: Nutrition Diagnosis: Inadequate oral intake related to oral intubation as evidenced by NPO status. Nutrition Goal: Patient to meet estimated nutritional needs. Goal in progress. Patient tolerating Glucerna 1.2 at 50mL/hr goal rate via NG tube. Free water flush increased to 150mL water every 4 hours. Propofol now infusing at 39.93mL/hr; thus, recommend keeping tube feeding rate at 50mL/hr to avoid overfeeding. Last recorded weight is 120.3 kg which is decreased from last review, despite +I/O. Bowel Motility: BM x 1 today. Labs Reviewed: WBC (27.1), RBC (3.29), Hgb (8.8), Hct (27.0), Glu (219), BUN (109), Cr (5.7), Cl (117), Na (150), PO4 (5.9), Mg (3.2) Meds Noted: Propofol (rate of 39.93mL/hr provides 1054kcal per day), Miralax, Protonix, Zosyn, Decadron, Fentanyl, Lantus, Insulin, Atrovent, Xopenex, Versed, Levophed Additional Notes: Tube feeding at current goal rate with Propofol providing 2374kcal per day. No documented skin breakdown. Will continue to monitor with same goal. Nutrition Monitoring and Evaluation: Follow up every Saturday/Saturday.
--- NOTE | 2021-01-27 12:56 | P.PNNP_ITS ---
Progress Note: A&P Assessment and Plan (1) DB (acute kidney injury): Code(s): N17.9 - Acute kidney failure, unspecified Status: Acute Assessment and Plan: * unclear what baseline creatinine normally runs * given his poorly controlled diabetes, he may have some underlying CKD * suspect DB due to decreased volume intake/volume depletion, hypotension, and hyperglycemia * renal ultrasound normal and urine electrolytes c/w pre-renal azotemia * continue to hold dialysis given increased urine output with stable pilar ctrolytes along with downward trend of BUN + creatinine * follow trend of repeat labs and UOP in the hopes of renal recovery (2) Hyperkalemia: Code(s): E87.5 - Hyperkalemia Status: Acute Assessment and Plan: * due to combination of metabolic acidosis + uremia + acute kidney injury + renal hypoperfusion * doing much better * follow trend (3) Hypernatremia: Code(s): E87.0 - Hyperosmolality and hypernatremia Status: Acute Assessment and Plan: * due to free water deficit and insensible losses (fever) * start free water flushes to compensate * follow repeat sodium levels (4) Septic shock: Code(s): A41.9 - Sepsis, unspecified organism; R65.21 - Severe sepsis with septic shock Status: Acute Assessment and Plan: * criteria of leukocytosis, lactic acidosis, and hypotension along with DB/ARF * no clear source as of yet (CXR and UA unrevealing) but continues to be febrile * repeat CT scan yesterday with results noted * follow new culture data * continue antibiotics * off vasopressor therapy (5) Acute respiratory failure: Code(s): J96.00 - Acute respiratory failure, unspecified whether with hypoxia or hypercapnia Status: Acute Assessment and Plan: * due to altered mental status, emesis, and inability to protect airway * now complicated by COVID-19 pneumonia * follow CXR and ABGs * continue ventilator support (6) DKA (diabetic ketoacidoses): Qualifiers: Diabetes mellitus complication detail: without coma Diabetes mellitus type: type 2 Qualified Code(s): E11.10 - Type 2 diabetes mellitus with ketoacidosis without coma Code(s): E11.10 - Type 2 diabetes mellitus with ketoacidosis without coma Status: Acute Assessment and Plan: * admitted with hyperglycemia, high anion gap acidosis and elevated BHOB * s/p aggressive IVF resuscitation * A1c quite elevated * attempting to wean insulin gtt (7) COVID-19: Code(s): U07.1 - COVID-19 Status: Acute Assessment and Plan: * tested positive by home kit * rechecked here and positive as well * respiratory/contact/droplet isolation * on steroid therapy Will continue to follow. Subjective Date/time seen: 01/27/21 12:56 Issues with hypoxia when CT imaging done yesterday; CT results noted; NG tube removed due to purulent secretions from his nose; remains sedated and on mechanical ventilation at this time; continues to make good urine output with slow improvement trend of BUN and creatinine; still with on/off fevers. Exam Narrative: Exam Narrative: General: WD/WN AA male intubated Heart: normal S1 and S2; no rub Lungs: decreased at bases Abdomen: soft, nontender, nondistended, positive bowel sounds Extremities: no cyanosis or clubbing; no edema Skin: warm and intact Objective Data Vital Signs Vital Signs: Vital Signs Temp Pulse Resp BP
--- NOTE | 2021-01-27 12:56 | PM.PNNEP ---
Progress Note: A&P Assessment and Plan (1) DB (acute kidney injury): Code(s): N17.9 - Acute kidney failure, unspecified Status: Acute Assessment and Plan: unclear what baseline creatinine normally runs given his poorly controlled diabetes, he may have some underlying CKD suspect DB due to decreased volume intake/volume depletion, hypotension, and hyperglycemia renal ultrasound normal and urine electrolytes c/w pre-renal azotemia continue to hold dialysis given increased urine output with stable electrolytes along with downward trend of BUN + creatinine follow trend of repeat labs and UOP in the hopes of renal recovery (2) Hyperkalemia: Code(s): E87.5 - Hyperkalemia Status: Acute Assessment and Plan: due to combination of metabolic acidosis + uremia + acute kidney injury + renal hypoperfusion doing much better follow trend (3) Hypernatremia: Code(s): E87.0 - Hyperosmolality and hypernatremia Status: Acute Assessment and Plan: due to free water deficit and insensible losses (fever) start free water flushes to compensate follow repeat sodium levels (4) Septic shock: Code(s): A41.9 - Sepsis, unspecified organism; R65.21 - Severe sepsis with septic shock Status: Acute Assessment and Plan: criteria of leukocytosis, lactic acidosis, and hypotension along with DB/ARF no clear source as of yet (CXR and UA unrevealing) but continues to be febrile repeat CT scan yesterday with results noted follow new culture data continue antibiotics off vasopressor therapy (5) Acute respiratory failure: Code(s): J96.00 - Acute respiratory failure, unspecified whether with hypoxia or hypercapnia Status: Acute Assessment and Plan: due to altered mental status, emesis, and inability to protect airway now complicated by COVID-19 pneumonia follow CXR and ABGs continue ventilator support (6) DKA (diabetic ketoacidoses): Qualifiers: Diabetes mellitus complication detail: without coma Diabetes mellitus type: type 2 Qualified Code(s): E11.10 - Type 2 diabetes mellitus with ketoacidosis without coma Code(s): E11.10 - Type 2 diabetes mellitus with ketoacidosis without coma Status: Acute Assessment and Plan: admitted with hyperglycemia, high anion gap acidosis and elevated BHOB s/p aggressive IVF resuscitation A1c quite elevated attempting to wean insulin gtt (7) COVID-19: Code(s): U07.1 - COVID-19 Status: Acute Assessment and Plan: tested positive by home kit rechecked here and positive as well respiratory/contact/droplet isolation on steroid therapy Will continue to follow. Subjective Date/time seen: 01/27/21 12:56 Issues with hypoxia when CT imaging done yesterday; CT results noted; NG tube removed due to purulent secretions from his nose; remains sedated and on mechanical ventilation at this time; continues to make good urine output with slow improvement trend of BUN and creatinine; still with on/off fevers. Exam Narrative: Exam Narrative: General: WD/WN AA male intubated Heart: normal S1 and S2; no rub Lungs: decreased at bases Abdomen: soft, nontender, nondistended, positive bowel sounds Extremities: no cyanosis or clubbing; no edema Skin: warm and intact Objective Data Vital Signs Vital Signs: Vital Signs Temp Pulse Resp BP Pulse Ox 01/27/21 12:10 96 24 H 01/27/21 12:00 37.8 C H 95 24 H 103/55 L 94 01/27/21 11:00 112 H 24 H 01/27/21 10:41 121 H 94 01/27/21 10:16 127 H 25 H 01/27/21 10:00 37.8 C H 122 H 24 H 129/68 95 01/27/21 09:36 126 H 25 H 01/27/21 08:48 122 H 25 H 01/27/21 08:38 119 H 25 H 98 01/27/21 08:00 37.9 C H 103 H 24 H 111/65 94 01/27/21 06:06 130 H 25 H 01/27/21 06:00 38.1 C H 131 H 24 H 144/75 H 98 01/27/21 05:17 121 H 97 01/27/21 04:42 1
[2021-01-27 14:17] LABS: Chloride Rand Ur 26 mmol/L (32-290); Chloride/Creatinine Rand Ur 23 (23-275); Creatinine Random Urine 114 mg/dL (20-320)
--- NOTE | 2021-01-27 15:15 | PM.IMPN ---
Progress Note: A&P Assessment and Plan (1) Hyperosmolar coma due to secondary diabetes: Code(s): E13.01 - Other specified diabetes mellitus with hyperosmolarity with coma Status: Acute Assessment and Plan: Sugar is better no continue with insulin drip monitor blood sugar as per ICU protocol A1c noted to be more than 14 (2) High anion gap metabolic acidosis: Code(s): E87.2 - Acidosis Status: Acute Assessment and Plan: improved With improved glycemia as well as the hemodialysis (3) Acute respiratory failure: Code(s): J96.00 - Acute respiratory failure, unspecified whether with hypoxia or hypercapnia Status: Acute Assessment and Plan: patient is intubated on the ventilator at this time Related to pneumonia Intubated on 01/21/2021 Continue vent management per ICU (4) Acute renal failure: Qualifiers: Acute renal failure type: unspecified Qualified Code(s): N17.9 - Acute kidney failure, unspecified Code(s): N17.9 - Acute kidney failure, unspecified Status: Acute Assessment and Plan: consult nephrology Presented with acute kidney injury, lactic acidosis, hyperkalemia initially fluid resuscitated. She was started on hemodialysis per nephrology team. Renal ultrasound was unremarkable with no stones masses or hydronephrosis Urine output currently decent however renal parameters still elevated (5) COVID-19: Code(s): U07.1 - COVID-19 Status: Acute Assessment and Plan: confirmatory test COVID positive On droplet isolation Started on dexamethasone 01/24 CT chest done this morning confirms pneumonic consolidation (6) History of seizure disorder: Code(s): Z86.69 - Personal history of other diseases of the nervous system and sense organs Status: Acute Assessment and Plan: consider neurology consultation and EEG (7) Hypernatremia: Code(s): E87.0 - Hyperosmolality and hypernatremia Status: Acute Assessment and Plan: mild continue to monitor (8) Hyperkalemia: Code(s): E87.5 - Hyperkalemia Status: Acute Assessment and Plan: resolved with hemodialysis (9) DVT prophylaxis: Code(s): Z29.9 - Encounter for prophylactic measures, unspecified Status: Acute Assessment and Plan: on heparin subcu (10) Septic shock: Code(s): A41.9 - Sepsis, unspecified organism; R65.21 - Severe sepsis with septic shock Status: Acute (11) Fever: Code(s): R50.9 - Fever, unspecified Status: Acute Assessment and Plan: continues to have fever on broad-spectrum antibiotics repeat cultures done on 01/25 which is pending Lipase level elevated Additional Plan 7 Subjective Date/time seen: 01/27/21 15:15 Interval history: Ms. to be critically ill. Events noted. Good urine output. Tolerating tube feeds. Off and on fever present Review of Systems Review of Systems: ROS unobtainable: Yes unobtainable due to medical condition ( ALTERED MENTAL STATUS ON VENTILATOR SUPPORT) Exam Narrative: Exam Narrative: Const: sedated and vented, not in distress HENMT: Other: ETT in place Neck: Neck: supple Resp: on vent coarse breath sounds heard bilaterally equal air entry Cardio: Rate: regular rate and rhythm GI: soft nondistended normal bowel sound : Other: Botello catheter in place with clear urine in bag Skin: normal color and no rashes or lesions noted Neuro: intubated and sedated Extrem: no edema cyanosis clubbing Objective Data Vital Signs Vital Signs: Vital Signs - 24 hr 01/26/21 16:00 01/26/21 16:54 01/26/21 18:00 Temperature 97.4 F L 98.6 F Pulse Rate 75 94 97 Respiratory Rate 24 H 24 H Blood Pressure 115/62 118/63 Pulse Oximetry 100 100 98 01/26/21 18:11 01/26/21 20:00 01/26/21 20:10 Temperature 98.4 F Pulse Rate 101 H 84 86 Respiratory Rate 24 H 24 H Blood Pr
[2021-01-27 16:24] LABS: Glucose Point of Care 178 mg/dl (65-105)
[2021-01-27 16:24] LABS: Glucose Point of Care 178 mg/dl (65-105)
[2021-01-27 16:24] LABS: Glucose Point of Care 203 mg/dl (65-105)
[2021-01-27 16:24] LABS: Glucose Point of Care 210 mg/dl (65-105)
[2021-01-27 16:24] LABS: Glucose Point of Care 162 mg/dl (65-105)
[2021-01-27 16:24] LABS: Glucose Point of Care 169 mg/dl (65-105)
[2021-01-27 16:24] LABS: Glucose Point of Care 201 mg/dl (65-105)
[2021-01-27 16:25] LABS: Glucose Point of Care 173 mg/dl (65-105)
[2021-01-27 16:25] LABS: Glucose Point of Care 215 mg/dl (65-105)
[2021-01-27] MEDS: INSULIN HUMAN REGULAR (*BKC) 100 UNITS in SODIUM CHLORIDE 0.9% IV 99 ML 11 UNITS IV CONT (17:07)
[2021-01-27 20:22] LABS: Glucose Point of Care 182 mg/dl (65-105)
[2021-01-27 20:22] LABS: Glucose Point of Care 161 mg/dl (65-105)
[2021-01-27 20:22] LABS: Glucose Point of Care 200 mg/dl (65-105)
[2021-01-27 20:22] LABS: Glucose Point of Care 163 mg/dl (65-105)
[2021-01-27 21:12] LABS: Glucose Point of Care 132 mg/dl (65-105)
[2021-01-27 22:12] LABS: Glucose Point of Care 131 mg/dl (65-105)
[2021-01-28] VITALS (39 sets, daily range): BP systolic 109–140; BP diastolic 57–88; PULSE 83–117; RESP 24–31; TEMP 36.9–38.4; O2SAT 91–100
[2021-01-28] MEDS: PROPOFOL IV EMULSION 100 ML 39.93 MG IV CONT ×10 (00:22→23:24)
[2021-01-28] MEDS: LORazepam INJ (*CRX) 2 MG/ML VIAL IV PUSH ×2 (00:23→16:09)
[2021-01-28] MEDS: MEPERIDINE HCL INJ (*CRX) 50 MG/ML AMPUL IV PUSH (01:03)
[2021-01-28 03:15] LABS: Glucose Point of Care 104 mg/dl (65-105)
[2021-01-28 03:15] LABS: Glucose Point of Care 135 mg/dl (65-105)
[2021-01-28 03:15] LABS: Glucose Point of Care 124 mg/dl (65-105)
[2021-01-28 03:15] LABS: Glucose Point of Care 120 mg/dl (65-105)
[2021-01-28 03:15] LABS: Glucose Point of Care 115 mg/dl (65-105)
[2021-01-28 04:25] LABS: Lipase 543 U/L (23-300)
[2021-01-28 04:39] LABS: Hematocrit 26.9 % (42.0-52.0); Hemoglobin 8.6 g/dL (14.0-18.0); Mean Corpuscular Hemoglobin 26.4 pg (26-34); Mean Corpuscular Volume 82.5 fl (80-100); Mean Platelet Volume 10.7 fl (7.4-10.4); Platelet Count Result 382 k/mm3 (150-375); Red Blood Count 3.26 M/mm3 (4.6-6.20); Red Cell Distribution Width 14.1 % (11.5-14.5); White Blood Count 29.5 K/mm3 (4.5-10.0)
[2021-01-28 04:41] LABS: Triglycerides 363 mg/dL (<150)
[2021-01-28 04:55] LABS: Alanine Aminotransferase 280 U/L (4-50); Albumin Level 3.1 g/dL (3.5-5.1); Alkaline Phosphatase 236 U/L (38-126); Anion Gap 11 mmol/L (8-16); Aspartate Amino Transferase 348 U/L (17-59); Bilirubin,Total 0.3 mg/dL (0.2-1.3); Blood Urea Nitrogen 96 mg/dL (9-20); Calcium 9.7 mg/dL (8.4-10.2); Carbon Dioxide 24 mmol/L (22-30); Chloride 121 mmol/L (98-107); Estimated CRCL calculation 31 ml/min; Estimated Glomerular Filt Rate 20; Glucose 108 mg/dL (75-110); Magnesium 2.9 mg/dL (1.6-2.3); Phosphorus 6.5 mg/dL (2.5-4.5); Potassium 4.1 mmol/L (3.4-5.0); Sodium 156 mmol/L (137-145)
[2021-01-28] MEDS: CENTRAL LINE FLUSH 10 ML IV PUSH ×4 (05:04→21:00)
[2021-01-28 05:25] LABS: Alveolar/Arterial O2 Gradient 276.7 mmHg; Base Excess ABG -0.2 mEq/l (+/-2.0); Fractional Inspired Oxygen 55 %; HCO3 ABG 24.5 mEq/l (22.0-26.0); Oxygen Content ABG 15.8 %vol (16.0-22.0); Oxygen Saturation ABG 94.2 % (95.0-100.0); Oxyhemoglobin 92.8 % THb (90.0-100.0); PCO2 ABG 40.6 mmHg (35.0-45.0); PO2 ABG 70.3 mmHg (80.0-100.0); PO2 FiO2 Ratio Arterial Blood 1.28 %; Total Hemoglobin 12.1 g/dL (12.0-18.0); pH ABG 7.399 (7.350-7.450)
[2021-01-28 05:26] LABS: Device VENTILATOR; Modified Allen's Test Pass; Site Drawn LEFT RADIAL
[2021-01-28 05:28] LABS: Arterial Blood Gas PEEP 10 cmH2O; Arterial Blood Gas Tidal Volume 500 ml; Arterial Blood Gas Vent Mode CMV; Arterial Blood Gas Ventilator rate 24 /MIN
[2021-01-28 06:52] LABS: Triiodothyronine T3 Free 1.3 pg/mL (2.3-4.2)
[2021-01-28 06:58] LABS: Glucose Point of Care 105 mg/dl (65-105)
[2021-01-28 06:59] LABS: Glucose Point of Care 98 mg/dl (65-105)
[2021-01-28 06:59] LABS: Glucose Point of Care 125 mg/dl (65-105)
[2021-01-28 06:59] LABS: Glucose Point of Care 118 mg/dl (65-105)
[2021-01-28] MEDS: IPRATROPIUM BR 0.02% INH SOLN 0.5 MG/2.5 ML VIAL INHALATION ×3 (07:44→21:06)
[2021-01-28] MEDS: LEVALBUTEROL NEB 1.25 MG/3 ML 0.63 MG INHALATION ×3 (07:44→21:05)
[2021-01-28] MEDS: INSULIN HUMAN REGULAR (*BKC) 100 UNITS in SODIUM CHLORIDE 0.9% IV 99 ML 7.5 UNITS IV CONT (08:17)
[2021-01-28] MEDS: DEXTROSE 5% 1,000 ML 1,000 ML 100 ML IV CONT (08:20)
--- NOTE | 2021-01-28 08:30 | PC.NURSE ---
RT notified ETT at 24cm and patient requiring to increase FiO2
[2021-01-28] MEDS: INSULIN GLARGINE (*BKC) 100 UNITS/ML 50 UNITS SUB-Q ×2 (08:53→18:57)
[2021-01-28] MEDS: HEPARIN SODIUM 5,000 UNITS/ML VIAL 5000 UNITS SUB-Q ×2 (08:56→20:17)
[2021-01-28] MEDS: PANTOPRAZOLE SODIUM IV 40 MG VIAL IV PUSH ×2 (08:56→20:18)
[2021-01-28] MEDS: MINERAL OIL/WHITE PETROLATUM OINTMENT 1 APPLIC EACH EYE ×2 (08:58→20:18)
[2021-01-28] MEDS: levETIRAcetam 500MG/NACL 100ML 500 MG/100 ML BAG 400 MG IVPB ×2 (08:59→20:17)
--- NOTE | 2021-01-28 09:54 | WPDINTPN ---
Progress Note: A&P Assessment and Plan (1) Acute respiratory failure: Code(s): J96.00 - Acute respiratory failure, unspecified whether with hypoxia or hypercapnia Status: Acute Assessment and Plan: Patient with acute respiratory failure, intubated on 01/21/2021 due to mental status changes and emesis, to protect his airway. - 01/26 Patient desaturated when repositioned for CT scan yesterday. He had to be bagged when cleared for prolonged period of time to get his saturations up. sedation was increased to prevent patient ventilator dyssynchrony. patient had purulent discharge coming out of his nose. NG tube was removed and OG tube was placed. continues to be sedated and on mechanical ventilation. Peep was increased to 10 and FiO2 to 100% which has been now weaned down to 50% -01/26 CT Chest showed IMPRESSION: 1. Patchy bilateral lung disease consistent with COVID pneumonia. 2. Mild likely reactive mediastinal lymphadenopathy. - Chest x-ray and ABGs reviewed, currently on 55% FiO2 and peep of 10. - continue bronchodilators - sedated with fentanyl and propofol infusion, with daily sedation vacation. monitoring triglyceride levels - Sputum culture is growing yeast which probably is likely contaminant or colonizer - on empiric Zosyn - COVID-19 is being treated with dexamethasone (2) Sinusitis: Code(s): J32.9 - Chronic sinusitis, unspecified Status: Acute Assessment and Plan: - patient was noted to have purulent discharge from his nostrils and CT sinuses confirmed extensive sinusitis. IMPRESSION: 1. Extensive opacification of the paranasal sinuses and nasal cavity, predominantly new from 01/21/2021, which may be secondary to the presence of the nasogastric tube and endotracheal tube - NG tube was removed and replaced with OG tube. Antibiotics were changed to Zosyn - his discharge seems to have improved as I did not notice any today nurse also did not report any significant discharge this morning. I do not see any evidence to suspect fungal sinusitis but I will discuss with infectious disease.. Patient does have and controlled diabetes and is on steroids although is not Immunocompromised in any other way or form (3) Pneumonia due to COVID-19 virus: Code(s): U07.1 - COVID-19; J12.82 - Pneumonia due to coronavirus disease 2019 Status: Acute Assessment and Plan: according the records patient was positive for COVID-19 on a home COVID-19 test kit. - COVID PCR was positive in the hospital - continue droplet, airborne, contact isolation/precautions - although it is not a classical presentation of COVID-19 considering the patient is on supplemental oxygen and has abnormal chest x-ray, patient was started on dexamethasone 01/24. CT chest done yesterday confirmed bilateral infiltrates. Continue dexamethasone - patient not a candidate for remdesivir due to acute renal failure - monitor inflammatory markers (4) Septic shock: Code(s): A41.9 - Sepsis, unspecified organism; R65.21 - Severe sepsis with septic shock Status: Acute Assessment and Plan: patient presented with elevated WBC count, lactic acidosis, hypotension and was diagnosed with septic shock - chest x-ray and UA were clear on presentation, source of infection unknown - blood cultures and sputum cultures negative to date except [place] - patient was on cefepime and vancomycin. vancomycin was discontinued due to negative blood cultures. - patient was noted to have purulent discharge from his nostrils and CT sinuses confirmed extensive sinusitis. IMPRESSION: 1. Extensive opacification of the paranasal sinuses and nasal cavity, predominantly new from 01/21/2021, which may be secondary to the presence of the nasogastric tube and endotracheal tube - NG tube was removed and replaced with OG tube. Antibiotics were changed to Zosyn - repeat cultures were sent 01/25 -01/26 CT Chest showed bilateral pneumonia IMPRESSION:
--- NOTE | 2021-01-28 10:35 | PC.NURSE ---
Ice bag to bilateral femoral and axilla areas.
--- NOTE | 2021-01-28 12:08 | P.PNNP_ITS ---
Progress Note: A&P Assessment and Plan (1) DB (acute kidney injury): Code(s): N17.9 - Acute kidney failure, unspecified Status: Acute Assessment and Plan: * unclear what baseline creatinine normally runs * given his poorly controlled diabetes, he may have some underlying CKD * suspect DB due to decreased volume intake/volume depletion, hypotension, and hyperglycemia * renal ultrasound normal and urine electrolytes c/w pre-renal azotemia * noted reasonable urine output with stable electrolytes along with downward trend of BUN + creatinine * follow trend of repeat labs and UOP in the hopes of renal recovery (2) Hyperkalemia: Code(s): E87.5 - Hyperkalemia Status: Acute Assessment and Plan: * due to combination of metabolic acidosis + uremia + acute kidney injury + renal hypoperfusion * doing much better * follow trend (3) Hypernatremia: Code(s): E87.0 - Hyperosmolality and hypernatremia Status: Acute Assessment and Plan: * due to free water deficit and insensible losses (fever) * titrate free water flushes to compensate * may need to consider D5W IVFs * follow repeat sodium levels (4) Septic shock: Code(s): A41.9 - Sepsis, unspecified organism; R65.21 - Severe sepsis with septic shock Status: Acute Assessment and Plan: * criteria of leukocytosis, lactic acidosis, and hypotension along with DB/ARF * no clear source as of yet (CXR and UA unrevealing) but continues to be febrile * repeat CT scan on 01/26/21 with results noted * follow new culture data * continue antibiotics * off vasopressor therapy (5) Acute respiratory failure: Code(s): J96.00 - Acute respiratory failure, unspecified whether with hypoxia or hypercapnia Status: Acute Assessment and Plan: * due to altered mental status, emesis, and inability to protect airway * now complicated by COVID-19 pneumonia * follow CXR and ABGs * continue ventilator support (6) DKA (diabetic ketoacidoses): Qualifiers: Diabetes mellitus complication detail: without coma Diabetes mellitus type: type 2 Qualified Code(s): E11.10 - Type 2 diabetes mellitus with ketoacidosis without coma Code(s): E11.10 - Type 2 diabetes mellitus with ketoacidosis without coma Status: Acute Assessment and Plan: * admitted with hyperglycemia, high anion gap acidosis and elevated BHOB * s/p aggressive IVF resuscitation * A1c quite elevated * attempting to wean insulin gtt (7) COVID-19: Code(s): U07.1 - COVID-19 Status: Acute Assessment and Plan: * tested positive by home kit * rechecked here and positive as well * respiratory/contact/droplet isolation * on steroid therapy Will continue to follow. Subjective Date/time seen: 01/28/21 12:08 No significant change noted -- remains on sedation and mechanical ventilation; stable hemodynamics noted but continues to have on/off fevers this AM; good urine output noted with slow improvement in renal function; no other acute events/issues overnight. Exam Narrative: Exam Narrative: General: WD/WN AA male intubated Heart: normal S1 and S2; no rub Lungs: decreased at bases Abdomen: soft, nontender, nondistended, positive bowel sounds Extremities: no cyanosis or clubbing; no edema Skin: no rash Objective Data Vital Signs Vital Signs: Vital Signs Temp Pulse Resp BP Pulse Ox
--- NOTE | 2021-01-28 12:08 | PM.PNNEP ---
Progress Note: A&P Assessment and Plan (1) DB (acute kidney injury): Code(s): N17.9 - Acute kidney failure, unspecified Status: Acute Assessment and Plan: unclear what baseline creatinine normally runs given his poorly controlled diabetes, he may have some underlying CKD suspect DB due to decreased volume intake/volume depletion, hypotension, and hyperglycemia renal ultrasound normal and urine electrolytes c/w pre-renal azotemia noted reasonable urine output with stable electrolytes along with downward trend of BUN + creatinine follow trend of repeat labs and UOP in the hopes of renal recovery (2) Hyperkalemia: Code(s): E87.5 - Hyperkalemia Status: Acute Assessment and Plan: due to combination of metabolic acidosis + uremia + acute kidney injury + renal hypoperfusion doing much better follow trend (3) Hypernatremia: Code(s): E87.0 - Hyperosmolality and hypernatremia Status: Acute Assessment and Plan: due to free water deficit and insensible losses (fever) titrate free water flushes to compensate may need to consider D5W IVFs follow repeat sodium levels (4) Septic shock: Code(s): A41.9 - Sepsis, unspecified organism; R65.21 - Severe sepsis with septic shock Status: Acute Assessment and Plan: criteria of leukocytosis, lactic acidosis, and hypotension along with DB/ARF no clear source as of yet (CXR and UA unrevealing) but continues to be febrile repeat CT scan on 01/26/21 with results noted follow new culture data continue antibiotics off vasopressor therapy (5) Acute respiratory failure: Code(s): J96.00 - Acute respiratory failure, unspecified whether with hypoxia or hypercapnia Status: Acute Assessment and Plan: due to altered mental status, emesis, and inability to protect airway now complicated by COVID-19 pneumonia follow CXR and ABGs continue ventilator support (6) DKA (diabetic ketoacidoses): Qualifiers: Diabetes mellitus complication detail: without coma Diabetes mellitus type: type 2 Qualified Code(s): E11.10 - Type 2 diabetes mellitus with ketoacidosis without coma Code(s): E11.10 - Type 2 diabetes mellitus with ketoacidosis without coma Status: Acute Assessment and Plan: admitted with hyperglycemia, high anion gap acidosis and elevated BHOB s/p aggressive IVF resuscitation A1c quite elevated attempting to wean insulin gtt (7) COVID-19: Code(s): U07.1 - COVID-19 Status: Acute Assessment and Plan: tested positive by home kit rechecked here and positive as well respiratory/contact/droplet isolation on steroid therapy Will continue to follow. Subjective Date/time seen: 01/28/21 12:08 No significant change noted -- remains on sedation and mechanical ventilation; stable hemodynamics noted but continues to have on/off fevers this AM; good urine output noted with slow improvement in renal function; no other acute events/issues overnight. Exam Narrative: Exam Narrative: General: WD/WN AA male intubated Heart: normal S1 and S2; no rub Lungs: decreased at bases Abdomen: soft, nontender, nondistended, positive bowel sounds Extremities: no cyanosis or clubbing; no edema Skin: no rash Objective Data Vital Signs Vital Signs: Vital Signs Temp Pulse Resp BP Pulse Ox 01/28/21 10:30 103 H 99 01/28/21 10:00 38.4 C H 108 H 24 H 117/60 100 01/28/21 08:50 117 H 25 H 01/28/21 08:00 38.1 C H 114 H 24 H 119/65 91 01/28/21 07:52 113 H 24 H 01/28/21 07:51 113 H 96 01/28/21 06:01 37.6 C H 99 24 H 115/58 L 98 01/28/21 06:00 99 24 H 01/28/21 05:05 109 H 97 01/28/21 04:01 37.2 C 103 H 27 H 124/75 99 01/28/21 04:00 103 H 27 H 01/28/21 03:10 110 H 24 H 01/28/21 03:00 114 H 24 H 01/28/21 02:57 114 H 93 01/28/21 02:01 37.6 C 107 H 26 H 13
--- NOTE | 2021-01-28 13:11 | PC.NURSE ---
Attempted to update spouse, Sarah, via telephone. Spouse upset with nurse after update on patient's neurological status during sedation vacation. 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 I would like to talk to a nurse that has empathy. Placed spouse on hold to transfer to set up and charger. metal stud framer notified of call, came to telephone, spouse hung up.
--- NOTE | 2021-01-28 16:14 | PM.IMPN ---
Progress Note: A&P Assessment and Plan (1) Hyperosmolar coma due to secondary diabetes: Code(s): E13.01 - Other specified diabetes mellitus with hyperosmolarity with coma Status: Acute Assessment and Plan: Sugar is better no continue with insulin drip monitor blood sugar as per ICU protocol A1c noted to be more than 14 (2) High anion gap metabolic acidosis: Code(s): E87.2 - Acidosis Status: Acute Assessment and Plan: improved With improved glycemia as well as the hemodialysis (3) Acute respiratory failure: Code(s): J96.00 - Acute respiratory failure, unspecified whether with hypoxia or hypercapnia Status: Acute Assessment and Plan: patient is intubated on the ventilator at this time Related to pneumonia Intubated on 01/21/2021 Continue vent management per ICU (4) Acute renal failure: Qualifiers: Acute renal failure type: unspecified Qualified Code(s): N17.9 - Acute kidney failure, unspecified Code(s): N17.9 - Acute kidney failure, unspecified Status: Acute Assessment and Plan: consult nephrology Presented with acute kidney injury, lactic acidosis, hyperkalemia initially fluid resuscitated. She was started on hemodialysis per nephrology team. Renal ultrasound was unremarkable with no stones masses or hydronephrosis Urine output currently decent and renal parameters improving (5) COVID-19: Code(s): U07.1 - COVID-19 Status: Acute Assessment and Plan: confirmatory test COVID positive On droplet isolation Started on dexamethasone 01/24 CT chest done confirms pneumonic consolidation sputum culture growing gram-negative bacilli and yeast yet to be identified (6) History of seizure disorder: Code(s): Z86.69 - Personal history of other diseases of the nervous system and sense organs Status: Acute Assessment and Plan: consider neurology consultation and EEG (7) Hypernatremia: Code(s): E87.0 - Hyperosmolality and hypernatremia Status: Acute Assessment and Plan: mild continue to monitor 312 flushes and D5 water added per ICU team (8) Hyperkalemia: Code(s): E87.5 - Hyperkalemia Status: Acute Assessment and Plan: resolved with hemodialysis remains off hemodialysis. creatinine continues to improve with good urine output (9) DVT prophylaxis: Code(s): Z29.9 - Encounter for prophylactic measures, unspecified Status: Acute Assessment and Plan: on heparin subcu (10) Septic shock: Code(s): A41.9 - Sepsis, unspecified organism; R65.21 - Severe sepsis with septic shock Status: Acute Assessment and Plan: resolved off Levophed (11) Fever: Code(s): R50.9 - Fever, unspecified Status: Acute Assessment and Plan: continues to have fever on broad-spectrum antibiotics repeat cultures done on 01/25 which is pending Lipase level elevated Subjective Date/time seen: 01/28/21 16:14 Interval history: making good amount urine remains febrile on and off remains on sedation and ventilation Review of Systems Review of Systems: ROS unobtainable: Yes unobtainable due to medical condition ( ALTERED MENTAL STATUS ON VENTILATOR SUPPORT) Exam Narrative: Exam Narrative: Const: sedated and vented, not in distress HENMT: Other: ETT in place Neck: Neck: supple Resp: on vent coarse breath sounds heard bilaterally equal air entry Cardio: Rate: regular rate and rhythm GI: soft nondistended normal bowel sound : Other: Botello catheter in place with clear urine in bag Skin: normal color and no rashes or lesions noted Neuro: intubated and sedated Extrem: no edema cyanosis clubbing Objective Data Vital Signs Vital Signs: Vital Signs - 24 hr 01/27/21 16:39 01/27/21 17:22 01/27/21 18:00 Temperature 100.3 F H Pulse Rate 98 113 H 96 Respiratory Rate 24 H 24 H
[2021-01-28 17:48] LABS: Anion Gap 8 mmol/L (8-16); Blood Urea Nitrogen 80 mg/dL (9-20); Calcium 9.8 mg/dL (8.4-10.2); Carbon Dioxide 26 mmol/L (22-30); Chloride 120 mmol/L (98-107); Estimated CRCL calculation 37 ml/min; Estimated Glomerular Filt Rate 24; Glucose 140 mg/dL (75-110); Potassium 4.7 mmol/L (3.4-5.0); Sodium 154 mmol/L (137-145)
[2021-01-28 17:51] LABS: Lactate Dehydrogenase 1861 U/L (313-618)
[2021-01-28 18:02] LABS: CRP 19.2 mg/dL (<1.0)
[2021-01-28 18:04] LABS: Glucose Point of Care 132 mg/dl (65-105)
[2021-01-28 18:04] LABS: Glucose Point of Care 151 mg/dl (65-105)
[2021-01-28 18:04] LABS: Glucose Point of Care 186 mg/dl (65-105)
[2021-01-28 18:04] LABS: Glucose Point of Care 150 mg/dl (65-105)
[2021-01-28 18:04] LABS: Glucose Point of Care 148 mg/dl (65-105)
[2021-01-28 18:04] LABS: Glucose Point of Care 148 mg/dl (65-105)
[2021-01-28 18:04] LABS: Glucose Point of Care 143 mg/dl (65-105)
[2021-01-28 18:04] LABS: Glucose Point of Care 189 mg/dl (65-105)
[2021-01-28 18:04] LABS: Glucose Point of Care 165 mg/dl (65-105)
[2021-01-28 18:04] LABS: Glucose Point of Care 150 mg/dl (65-105)
[2021-01-28] MEDS: DEXTROSE 5% 1,000 ML 1,000 ML 150 ML IV CONT (18:55)
[2021-01-28] MEDS: INSULIN HUMAN REGULAR (*BKC) 100 UNITS in SODIUM CHLORIDE 0.9% IV 99 ML 6.3 UNITS IV CONT (19:00)
[2021-01-28 20:28] LABS: Ferritin > 2000.00 ng/mL (17.9-464)
[2021-01-29] VITALS (53 sets, daily range): BP systolic 116–140; BP diastolic 65–96; PULSE 89–125; RESP 20–32; TEMP 37.3–38.2; O2SAT 94–100
[2021-01-29] MEDS: DEXTROSE 5% 1,000 ML 1,000 ML 150 ML IV CONT ×2 (00:50→06:48)
[2021-01-29] MEDS: FENTANYL 2,500MCG/NS250ML(*CRX 2,500 MCG/250 ML BAG IV CONT (01:23)
[2021-01-29] MEDS: PROPOFOL IV EMULSION 100 ML 39.93 MG IV CONT (01:26)
[2021-01-29] MEDS: IPRATROPIUM BR 0.02% INH SOLN 0.5 MG/2.5 ML VIAL INHALATION ×5 (03:10→20:14)
[2021-01-29] MEDS: LEVALBUTEROL NEB 1.25 MG/3 ML 0.63 MG INHALATION ×5 (03:11→20:15)
[2021-01-29] MEDS: PROPOFOL IV EMULSION 100 ML 35.94 MG IV CONT ×2 (03:51→06:38)
[2021-01-29] MEDS: ACETAMINOPHEN ELIXIR 325 MG/10.15 ML UDC 650 MG PO ×2 (04:22→17:59)
[2021-01-29 04:23] LABS: Glucose Point of Care 120 mg/dl (65-105)
[2021-01-29 04:23] LABS: Glucose Point of Care 109 mg/dl (65-105)
[2021-01-29 04:23] LABS: Glucose Point of Care 117 mg/dl (65-105)
[2021-01-29 04:23] LABS: Glucose Point of Care 134 mg/dl (65-105)
[2021-01-29 04:23] LABS: Glucose Point of Care 106 mg/dl (65-105)
[2021-01-29 04:23] LABS: Glucose Point of Care 136 mg/dl (65-105)
[2021-01-29 04:23] LABS: Glucose Point of Care 124 mg/dl (65-105)
[2021-01-29 04:23] LABS: Glucose Point of Care 138 mg/dl (65-105)
[2021-01-29 04:23] LABS: Glucose Point of Care 117 mg/dl (65-105)
[2021-01-29 04:24] LABS: Glucose Point of Care 100 mg/dl (65-105)
[2021-01-29 04:28] LABS: Alveolar/Arterial O2 Gradient 206.2 mmHg; Base Excess ABG -0.8 mEq/l (+/-2.0); Fractional Inspired Oxygen 45 %; HCO3 ABG 23.4 mEq/l (22.0-26.0); Oxygen Saturation ABG 94.9 % (95.0-100.0); Oxyhemoglobin 93.7 % THb (90.0-100.0); PCO2 ABG 37.1 mmHg (35.0-45.0); PO2 ABG 72.5 mmHg (80.0-100.0); PO2 FiO2 Ratio Arterial Blood 1.61 %; Total Hemoglobin 10.6 g/dL (12.0-18.0); pH ABG 7.418 (7.350-7.450)
[2021-01-29 04:29] LABS: Arterial Blood Gas PEEP 10 cmH2O; Arterial Blood Gas Tidal Volume 500 ml; Arterial Blood Gas Vent Mode CMV; Arterial Blood Gas Ventilator rate 24 /MIN; Device VENTILATOR; Modified Allen's Test Unable to perform; Site Drawn RIGHT RADIAL
[2021-01-29] MEDS: CENTRAL LINE FLUSH 10 ML IV PUSH ×4 (05:33→21:43)
[2021-01-29 05:50] LABS: Hematocrit 26.9 % (42.0-52.0); Hemoglobin 8.2 g/dL (14.0-18.0); Mean Corpuscular HGB Conc 30.5 g/dl (32-36); Mean Corpuscular Hemoglobin 26.2 pg (26-34); Mean Corpuscular Volume 85.9 fl (80-100); Mean Platelet Volume 10.4 fl (7.4-10.4); Platelet Count Result 378 k/mm3 (150-375); Red Blood Count 3.13 M/mm3 (4.6-6.20); Red Cell Distribution Width 14.6 % (11.5-14.5); White Blood Count 28.5 K/mm3 (4.5-10.0)
[2021-01-29 06:02] LABS: Alanine Aminotransferase 303 U/L (4-50); Albumin Level 3.1 g/dL (3.5-5.1); Alkaline Phosphatase 248 U/L (38-126); Anion Gap 11 mmol/L (8-16); Aspartate Amino Transferase 290 U/L (17-59); Bilirubin,Total 0.3 mg/dL (0.2-1.3); Blood Urea Nitrogen 74 mg/dL (9-20); Calcium 9.4 mg/dL (8.4-10.2); Carbon Dioxide 21 mmol/L (22-30); Chloride 118 mmol/L (98-107); Estimated CRCL calculation 42 ml/min; Estimated Glomerular Filt Rate 27; Glucose 141 mg/dL (75-110); Lipase 607 U/L (23-300); Magnesium 2.4 mg/dL (1.6-2.3); Phosphorus 6.6 mg/dL (2.5-4.5); Potassium 4.2 mmol/L (3.4-5.0); Sodium 150 mmol/L (137-145); Triglycerides 263 mg/dL (<150)
[2021-01-29] MEDS: INSULIN HUMAN REGULAR (*BKC) 100 UNITS in SODIUM CHLORIDE 0.9% IV 99 ML 9 UNITS IV CONT (06:50)
[2021-01-29] MEDS: INSULIN GLARGINE (*BKC) 100 UNITS/ML 50 UNITS SUB-Q ×2 (06:53→20:02)
[2021-01-29 07:54] LABS: Glucose Point of Care 128 mg/dl (65-105)
[2021-01-29 07:54] LABS: Glucose Point of Care 84 mg/dl (65-105)
[2021-01-29 07:54] LABS: Glucose Point of Care 142 mg/dl (65-105)
[2021-01-29 07:55] LABS: Glucose Point of Care 144 mg/dl (65-105)
--- NOTE | 2021-01-29 08:41 | WPDINTPN ---
Progress Note: A&P Assessment and Plan (1) Acute respiratory failure: Code(s): J96.00 - Acute respiratory failure, unspecified whether with hypoxia or hypercapnia Status: Acute Assessment and Plan: Patient with acute respiratory failure, intubated on 01/21/2021 due to mental status changes and emesis, to protect his airway. - 01/26 Patient desaturated when repositioned for CT scan yesterday. He had to be bagged when cleared for prolonged period of time to get his saturations up. sedation was increased to prevent patient ventilator dyssynchrony. patient had purulent discharge coming out of his nose. NG tube was removed and OG tube was placed. continues to be sedated and on mechanical ventilation. Peep was increased to 10 and FiO2 to 100% which has been now weaned down to 50% -01/26 CT Chest showed IMPRESSION: 1. Patchy bilateral lung disease consistent with COVID pneumonia. 2. Mild likely reactive mediastinal lymphadenopathy. - Chest x-ray and ABGs reviewed, currently on 45% FiO2 and peep of 10. will change PEEP to 8 - continue bronchodilators - sedated with fentanyl and propofol infusion, with daily sedation vacation. monitoring triglyceride levels - Sputum culture is growing yeast which probably is likely contaminant or colonizer - on empiric Zosyn - COVID-19 is being treated with dexamethasone - patient is self diuresing with high urine output (2) Sinusitis: Code(s): J32.9 - Chronic sinusitis, unspecified Status: Acute Assessment and Plan: - patient was noted to have purulent discharge from his nostrils and CT sinuses confirmed extensive sinusitis. IMPRESSION: 1. Extensive opacification of the paranasal sinuses and nasal cavity, predominantly new from 01/21/2021, which may be secondary to the presence of the nasogastric tube and endotracheal tube - NG tube was removed and replaced with OG tube. Antibiotics were changed to Zosyn - his discharge seems to have improved as I did not notice any today nurse also did not report any significant discharge this morning. I do not see any evidence to suspect fungal sinusitis but I will discuss with infectious disease.. Patient does have and controlled diabetes and is on steroids although is not Immunocompromised in any other way or form (3) Pneumonia due to COVID-19 virus: Code(s): U07.1 - COVID-19; J12.82 - Pneumonia due to coronavirus disease 2019 Status: Acute Assessment and Plan: according the records patient was positive for COVID-19 on a home COVID-19 test kit. - COVID PCR was positive in the hospital - continue droplet, airborne, contact isolation/precautions - although it is not a classical presentation of COVID-19 considering the patient is on supplemental oxygen and has abnormal chest x-ray, patient was started on dexamethasone 01/24. CT chest done yesterday confirmed bilateral infiltrates. Continue dexamethasone - patient not a candidate for remdesivir due to acute renal failure - monitor inflammatory markers (4) Septic shock: Code(s): A41.9 - Sepsis, unspecified organism; R65.21 - Severe sepsis with septic shock Status: Acute Assessment and Plan: patient presented with elevated WBC count, lactic acidosis, hypotension and was diagnosed with septic shock - chest x-ray and UA were clear on presentation, source of infection unknown - blood cultures and sputum cultures negative to date except [place] - patient was on cefepime and vancomycin. vancomycin was discontinued due to negative blood cultures. - patient was noted to have purulent discharge from his nostrils and CT sinuses confirmed extensive sinusitis. IMPRESSION: 1. Extensive opacification of the paranasal sinuses and nasal cavity, predominantly new from 01/21/2021, which may be secondary to the presence of the nasogastric tube and endotracheal tube - NG tube was removed and replaced with OG tube. Antibiotics were changed to Zosyn - repeat cultu
[2021-01-29] MEDS: levETIRAcetam 500MG/NACL 100ML 500 MG/100 ML BAG 400 MG IVPB ×2 (08:53→20:04)
[2021-01-29] MEDS: FLUCONAZOLE 200 MG/NACL 100 ML 200 MG/100 ML BAG 100 MG IVPB (08:59)
[2021-01-29] MEDS: HEPARIN SODIUM 5,000 UNITS/ML VIAL 5000 UNITS SUB-Q ×2 (09:01→20:03)
[2021-01-29] MEDS: MINERAL OIL/WHITE PETROLATUM OINTMENT 1 APPLIC EACH EYE ×2 (09:10→20:05)
[2021-01-29] MEDS: polyethylene glycoL 3350 17 GM POWD.PACK PO (09:10)
[2021-01-29] MEDS: PANTOPRAZOLE SODIUM IV 40 MG VIAL IV PUSH ×2 (09:10→20:03)
[2021-01-29] MEDS: PROPOFOL IV EMULSION 100 ML 35.34 MG IV CONT ×2 (11:53→14:51)
--- NOTE | 2021-01-29 11:56 | PM.IMPN ---
Progress Note: A&P Assessment and Plan (1) Hyperosmolar coma due to secondary diabetes: Code(s): E13.01 - Other specified diabetes mellitus with hyperosmolarity with coma Status: Acute Assessment and Plan: Sugar is better no continue with insulin drip monitor blood sugar as per ICU protocol A1c noted to be more than 14 (2) High anion gap metabolic acidosis: Code(s): E87.2 - Acidosis Status: Acute Assessment and Plan: improved With improved glycemia as well as the hemodialysis (3) Acute respiratory failure: Code(s): J96.00 - Acute respiratory failure, unspecified whether with hypoxia or hypercapnia Status: Acute Assessment and Plan: patient is intubated on the ventilator at this time Related to pneumonia Intubated on 01/21/2021 Continue vent management per ICU (4) Acute renal failure: Qualifiers: Acute renal failure type: unspecified Qualified Code(s): N17.9 - Acute kidney failure, unspecified Code(s): N17.9 - Acute kidney failure, unspecified Status: Acute Assessment and Plan: consult nephrology Presented with acute kidney injury, lactic acidosis, hyperkalemia initially fluid resuscitated. She was started on hemodialysis per nephrology team. Renal ultrasound was unremarkable with no stones masses or hydronephrosis Urine output currently decent and renal parameters improving (5) COVID-19: Code(s): U07.1 - COVID-19 Status: Acute Assessment and Plan: confirmatory test COVID positive On droplet isolation Started on dexamethasone 01/24 CT chest done confirms pneumonic consolidation sputum culture growing gram-negative bacilli and yeast yet to be identified (6) History of seizure disorder: Code(s): Z86.69 - Personal history of other diseases of the nervous system and sense organs Status: Acute Assessment and Plan: consider neurology consultation and EEG (7) Hypernatremia: Code(s): E87.0 - Hyperosmolality and hypernatremia Status: Acute Assessment and Plan: mild continue to monitor 312 flushes and D5 water added per ICU team (8) Hyperkalemia: Code(s): E87.5 - Hyperkalemia Status: Acute Assessment and Plan: resolved with hemodialysis remains off hemodialysis. creatinine continues to improve with good urine output (9) DVT prophylaxis: Code(s): Z29.9 - Encounter for prophylactic measures, unspecified Status: Acute Assessment and Plan: on heparin subcu (10) Septic shock: Code(s): A41.9 - Sepsis, unspecified organism; R65.21 - Severe sepsis with septic shock Status: Acute Assessment and Plan: resolved off Levophed (11) Fever: Code(s): R50.9 - Fever, unspecified Status: Acute Assessment and Plan: continues to have fever on broad-spectrum antibiotics repeat cultures done on 01/25 which is pending Lipase level elevated Additional Plan Will continue with current plan of care and treatment. Repeat chest x-ray slightly better. Patient making good amount of urine. Will wean off as tolerated by patient, will monitor electrolytes and CBC. Subjective Date/time seen: 01/29/21 11:56 Patient was seen during the morning rounds today. Patient is intubated and sedated. Mood no new acute issues. Making good amount of urine. Interval history: Review of Systems Review of Systems: ROS unobtainable: Yes unobtainable due to medical condition ( ALTERED MENTAL STATUS ON VENTILATOR SUPPORT) Exam Narrative: Exam Narrative: Const: sedated and vented, not in distress HENMT: Other: ETT in place Neck: Neck: supple Resp: on vent coarse breath sounds heard bilaterally equal air entry Cardio: Rate: regular rate and rhythm GI: soft nondistended normal bowel sound : Other: Botello catheter in place with clear urine in bag Skin: normal color and no rashes or le
[2021-01-29] MEDS: MEPERIDINE HCL INJ (*CRX) 50 MG/ML AMPUL 25 MG IV PUSH ×2 (11:58→17:55)
--- NOTE | 2021-01-29 13:29 | P.PNNP_ITS ---
Progress Note: A&P Assessment and Plan (1) DB (acute kidney injury): Code(s): N17.9 - Acute kidney failure, unspecified Status: Acute Assessment and Plan: * unclear what baseline creatinine normally runs * given his poorly controlled diabetes, he may have some underlying CKD * suspect DB due to decreased volume intake/volume depletion, hypotension, and hyperglycemia * renal ultrasound normal and urine electrolytes c/w pre-renal azotemia * noted reasonable urine output with stable electrolytes along with downward trend of BUN + creatinine * follow trend of repeat labs and UOP in the hopes of renal recovery (2) Hyperkalemia: Code(s): E87.5 - Hyperkalemia Status: Acute Assessment and Plan: * due to combination of metabolic acidosis + uremia + acute kidney injury + renal hypoperfusion * doing much better * follow trend (3) Hypernatremia: Code(s): E87.0 - Hyperosmolality and hypernatremia Status: Acute Assessment and Plan: * due to free water deficit and insensible losses (fever) * titrate free water flushes to compensate * wean off D5W IVFs * follow repeat sodium levels (4) Septic shock: Code(s): A41.9 - Sepsis, unspecified organism; R65.21 - Severe sepsis with septic shock Status: Acute Assessment and Plan: * criteria of leukocytosis, lactic acidosis, and hypotension along with DB/ARF * no clear source as of yet (CXR and UA unrevealing) but continues to be febrile * repeat CT scan on 01/26/21 with results noted * follow new culture data * continue antibiotics * off vasopressor therapy (5) Acute respiratory failure: Code(s): J96.00 - Acute respiratory failure, unspecified whether with hypoxia or hypercapnia Status: Acute Assessment and Plan: * due to altered mental status, emesis, and inability to protect airway * now complicated by COVID-19 pneumonia * follow CXR and ABGs * continue ventilator support (6) DKA (diabetic ketoacidoses): Qualifiers: Diabetes mellitus complication detail: without coma Diabetes mellitus type: type 2 Qualified Code(s): E11.10 - Type 2 diabetes mellitus with ketoacidosis without coma Code(s): E11.10 - Type 2 diabetes mellitus with ketoacidosis without coma Status: Acute Assessment and Plan: * admitted with hyperglycemia, high anion gap acidosis and elevated BHOB * s/p aggressive IVF resuscitation * A1c quite elevated * attempting to wean insulin gtt (7) COVID-19: Code(s): U07.1 - COVID-19 Status: Acute Assessment and Plan: * tested positive by home kit * rechecked here and positive as well * respiratory/contact/droplet isolation * on steroid therapy Will continue to follow. Subjective Date/time seen: 01/29/21 13:29 Remains intubated and sedated with ongoing ventilator support; D5W IVF have helped his hypernatremia but he continues to have on/off fevers despite current interventions; no other acute issues/problems overnight or earlier this AM; continues to make good urine output. Exam Narrative: Exam Narrative: General: WD/WN AA male intubated Heart: normal S1 and S2; no rub Lungs: decreased at bases Abdomen: soft, nontender, nondistended, positive bowel sounds Extremities: no cyanosis or clubbing; no edema Skin: no nodules Objective Data Vital Signs Vital Signs: Vital Signs Temp Pulse Resp BP Pulse Ox
--- NOTE | 2021-01-29 13:29 | PM.PNNEP ---
Progress Note: A&P Assessment and Plan (1) DB (acute kidney injury): Code(s): N17.9 - Acute kidney failure, unspecified Status: Acute Assessment and Plan: unclear what baseline creatinine normally runs given his poorly controlled diabetes, he may have some underlying CKD suspect DB due to decreased volume intake/volume depletion, hypotension, and hyperglycemia renal ultrasound normal and urine electrolytes c/w pre-renal azotemia noted reasonable urine output with stable electrolytes along with downward trend of BUN + creatinine follow trend of repeat labs and UOP in the hopes of renal recovery (2) Hyperkalemia: Code(s): E87.5 - Hyperkalemia Status: Acute Assessment and Plan: due to combination of metabolic acidosis + uremia + acute kidney injury + renal hypoperfusion doing much better follow trend (3) Hypernatremia: Code(s): E87.0 - Hyperosmolality and hypernatremia Status: Acute Assessment and Plan: due to free water deficit and insensible losses (fever) titrate free water flushes to compensate wean off D5W IVFs follow repeat sodium levels (4) Septic shock: Code(s): A41.9 - Sepsis, unspecified organism; R65.21 - Severe sepsis with septic shock Status: Acute Assessment and Plan: criteria of leukocytosis, lactic acidosis, and hypotension along with DB/ARF no clear source as of yet (CXR and UA unrevealing) but continues to be febrile repeat CT scan on 01/26/21 with results noted follow new culture data continue antibiotics off vasopressor therapy (5) Acute respiratory failure: Code(s): J96.00 - Acute respiratory failure, unspecified whether with hypoxia or hypercapnia Status: Acute Assessment and Plan: due to altered mental status, emesis, and inability to protect airway now complicated by COVID-19 pneumonia follow CXR and ABGs continue ventilator support (6) DKA (diabetic ketoacidoses): Qualifiers: Diabetes mellitus complication detail: without coma Diabetes mellitus type: type 2 Qualified Code(s): E11.10 - Type 2 diabetes mellitus with ketoacidosis without coma Code(s): E11.10 - Type 2 diabetes mellitus with ketoacidosis without coma Status: Acute Assessment and Plan: admitted with hyperglycemia, high anion gap acidosis and elevated BHOB s/p aggressive IVF resuscitation A1c quite elevated attempting to wean insulin gtt (7) COVID-19: Code(s): U07.1 - COVID-19 Status: Acute Assessment and Plan: tested positive by home kit rechecked here and positive as well respiratory/contact/droplet isolation on steroid therapy Will continue to follow. Subjective Date/time seen: 01/29/21 13:29 Remains intubated and sedated with ongoing ventilator support; D5W IVF have helped his hypernatremia but he continues to have on/off fevers despite current interventions; no other acute issues/problems overnight or earlier this AM; continues to make good urine output. Exam Narrative: Exam Narrative: General: WD/WN AA male intubated Heart: normal S1 and S2; no rub Lungs: decreased at bases Abdomen: soft, nontender, nondistended, positive bowel sounds Extremities: no cyanosis or clubbing; no edema Skin: no nodules Objective Data Vital Signs Vital Signs: Vital Signs Temp Pulse Resp BP Pulse Ox 01/29/21 12:53 96 25 H 01/29/21 12:00 37.7 C H 120 H 22 H 134/83 94 01/29/21 11:53 119 H 24 H 01/29/21 11:13 95 96 01/29/21 10:00 37.4 C 112 H 25 H 131/77 94 01/29/21 09:40 115 H 24 H 01/29/21 09:08 115 H 24 H 01/29/21 09:07 114 H 22 H 01/29/21 08:45 104 H 24 H 01/29/21 08:00 37.6 C 109 H 25 H 127/73 98 01/29/21 07:54 115 H 24 H 01/29/21 07:50 108 H 24 H 01/29/21 07:49 118 H 24 H 96 01/29/21 07:45 115 H 24 H 01/29/21 06:38 103 H 25 H 01/29/21 06:00
[2021-01-29 15:00] LABS: Glucose Point of Care 131 mg/dl (65-105)
[2021-01-29 15:00] LABS: Glucose Point of Care 119 mg/dl (65-105)
[2021-01-29 15:00] LABS: Glucose Point of Care 145 mg/dl (65-105)
[2021-01-29 15:00] LABS: Glucose Point of Care 116 mg/dl (65-105)
[2021-01-29 15:00] LABS: Glucose Point of Care 136 mg/dl (65-105)
[2021-01-29 15:00] LABS: Glucose Point of Care 137 mg/dl (65-105)
[2021-01-29 15:00] LABS: Glucose Point of Care 143 mg/dl (65-105)
[2021-01-29 16:32] LABS: Anion Gap 9 mmol/L (8-16); Blood Urea Nitrogen 62 mg/dL (9-20); Calcium 9.8 mg/dL (8.4-10.2); Carbon Dioxide 25 mmol/L (22-30); Chloride 115 mmol/L (98-107); Estimated CRCL calculation 44 ml/min; Estimated Glomerular Filt Rate 29; Glucose 161 mg/dL (75-110); Potassium 4.8 mmol/L (3.4-5.0); Sodium 149 mmol/L (137-145)
[2021-01-29] MEDS: PROPOFOL IV EMULSION 100 ML 39.27 MG IV CONT ×4 (17:40→23:42)
[2021-01-29] MEDS: INSULIN HUMAN REGULAR (*BKC) 100 UNITS in SODIUM CHLORIDE 0.9% IV 99 ML 6.9 UNITS IV CONT (17:48)
[2021-01-29] MEDS: DEXTROSE 5% 1,000 ML 1,000 ML 75 ML IV CONT (17:53)
--- NOTE | 2021-01-29 19:13 | PC.NURSE ---
Patent ET tube noted to be 20 cm at the lip after incontinent occurrence and clean up. Tube original placement is 26 cm. Respiratory therapist notified, and ET advance to proper placement. Chest xray obtained to verify placement. Dr. Toure notified.
[2021-01-30] VITALS (66 sets, daily range): BP systolic 104–146; BP diastolic 49–91; PULSE 75–134; RESP 24–35; TEMP 37.2–38.4; O2SAT 92–100
[2021-01-30] MEDS: PROPOFOL IV EMULSION 100 ML 39.27 MG IV CONT ×3 (01:36→09:14)
[2021-01-30] MEDS: PROPOFOL IV EMULSION 100 ML 19.64 MG IV CONT (04:37)
[2021-01-30] MEDS: DEXTROSE 5% 1,000 ML 1,000 ML 75 ML IV CONT ×2 (04:38→17:49)
[2021-01-30 04:46] LABS: Glucose Point of Care 100 mg/dl (65-105)
[2021-01-30 04:46] LABS: Glucose Point of Care 126 mg/dl (65-105)
[2021-01-30 04:46] LABS: Glucose Point of Care 144 mg/dl (65-105)
[2021-01-30 04:46] LABS: Glucose Point of Care 109 mg/dl (65-105)
[2021-01-30 04:46] LABS: Glucose Point of Care 119 mg/dl (65-105)
[2021-01-30 04:46] LABS: Glucose Point of Care 123 mg/dl (65-105)
[2021-01-30 04:46] LABS: Glucose Point of Care 97 mg/dl (65-105)
[2021-01-30 04:46] LABS: Glucose Point of Care 110 mg/dl (65-105)
[2021-01-30 04:46] LABS: Glucose Point of Care 126 mg/dl (65-105)
[2021-01-30 04:46] LABS: Glucose Point of Care 126 mg/dl (65-105)
[2021-01-30 04:46] LABS: Glucose Point of Care 113 mg/dl (65-105)
[2021-01-30 04:46] LABS: Glucose Point of Care 123 mg/dl (65-105)
[2021-01-30 04:54] LABS: Alveolar/Arterial O2 Gradient 171.6 mmHg; Base Excess ABG -1.7 mEq/l (+/-2.0); Fractional Inspired Oxygen 40 %; HCO3 ABG 23.6 mEq/l (22.0-26.0); Oxygen Content ABG 13.5 %vol (16.0-22.0); Oxygen Saturation ABG 92.1 % (95.0-100.0); PCO2 ABG 42.3 mmHg (35.0-45.0); PO2 FiO2 Ratio Arterial Blood 1.63 %; Total Hemoglobin 10.5 g/dL (12.0-18.0); pH ABG 7.365 (7.350-7.450)
[2021-01-30 04:55] LABS: Device VENTILATOR; Modified Allen's Test Pass; Site Drawn RIGHT RADIAL
[2021-01-30 04:56] LABS: Arterial Blood Gas PEEP 8 cmH2O; Arterial Blood Gas Tidal Volume 500 ml; Arterial Blood Gas Vent Mode CMV; Arterial Blood Gas Ventilator rate 24 /MIN
[2021-01-30] MEDS: FENTANYL 2,500MCG/NS250ML(*CRX 2,500 MCG/250 ML BAG 12.5 MCG IV CONT (05:08)
[2021-01-30] MEDS: CENTRAL LINE FLUSH 10 ML IV PUSH ×4 (05:22→20:29)
[2021-01-30 05:32] LABS: Hematocrit 26.7 % (42.0-52.0); Hemoglobin 8.3 g/dL (14.0-18.0); Mean Corpuscular HGB Conc 31.1 g/dl (32-36); Mean Corpuscular Volume 83.7 fl (80-100); Mean Platelet Volume 10.3 fl (7.4-10.4); Platelet Count Result 393 k/mm3 (150-375); Red Blood Count 3.19 M/mm3 (4.6-6.20); Red Cell Distribution Width 14.5 % (11.5-14.5); White Blood Count 27.2 K/mm3 (4.5-10.0)
[2021-01-30 05:53] LABS: Alanine Aminotransferase 311 U/L (4-50); Albumin Level 3.2 g/dL (3.5-5.1); Alkaline Phosphatase 263 U/L (38-126); Anion Gap 11 mmol/L (8-16); Aspartate Amino Transferase 200 U/L (17-59); Bilirubin,Total 0.3 mg/dL (0.2-1.3); Blood Urea Nitrogen 53 mg/dL (9-20); Calcium 9.9 mg/dL (8.4-10.2); Carbon Dioxide 25 mmol/L (22-30); Chloride 114 mmol/L (98-107); Estimated CRCL calculation 51 ml/min; Estimated Glomerular Filt Rate 34; Glucose 103 mg/dL (75-110); Magnesium 2.1 mg/dL (1.6-2.3); Potassium 4.2 mmol/L (3.4-5.0); Sodium 150 mmol/L (137-145)
[2021-01-30] MEDS: INSULIN GLARGINE (*BKC) 100 UNITS/ML 50 UNITS SUB-Q (06:35)
--- NOTE | 2021-01-30 06:42 | ECG_ITS ---
Measurements Intervals [place] Rate: 133 P: CO: 0 QRS: 57 QRSD: 90 T: -57 QT: 268 QTc: 400 Interpretive Statements SINUS TACHYCARDIA DELAYED PRECORDIAL R/S TRANSITION VOLTAGE CRITERIA FOR LVH BORDERLINE ST-T WAVE ABNORMALITY- INFERIOR LEADS BASELINE ARTIFACT- I, II, III, AVR, AVL, AVF, V1-V6 ABNORMAL ECG Electronically Signed On 01-31-2021 17:04:01 CDT by Rk Kaplan D.O.
[2021-01-30] MEDS: ACETAMINOPHEN ELIXIR 325 MG/10.15 ML UDC 650 MG PO ×2 (06:47→20:04)
[2021-01-30] MEDS: LORazepam INJ (*CRX) 2 MG/ML VIAL IV PUSH (06:49)
[2021-01-30] MEDS: IPRATROPIUM BR 0.02% INH SOLN 0.5 MG/2.5 ML VIAL INHALATION ×3 (07:39→20:08)
[2021-01-30] MEDS: LEVALBUTEROL NEB 1.25 MG/3 ML 0.63 MG INHALATION ×3 (07:39→20:08)
[2021-01-30 08:23] LABS: Glucose Point of Care 116 mg/dl (65-105)
[2021-01-30 08:23] LABS: Glucose Point of Care 107 mg/dl (65-105)
[2021-01-30 08:23] LABS: Glucose Point of Care 84 mg/dl (65-105)
[2021-01-30 08:23] LABS: Glucose Point of Care 124 mg/dl (65-105)
--- NOTE | 2021-01-30 09:05 | WPDINTPN ---
Progress Note: A&P Assessment and Plan (1) Acute respiratory failure: Code(s): J96.00 - Acute respiratory failure, unspecified whether with hypoxia or hypercapnia Status: Acute Assessment and Plan: Patient with acute respiratory failure, intubated on 01/21/2021 due to mental status changes and emesis, to protect his airway. - 01/26 Patient desaturated when repositioned for CT scan yesterday. He had to be bagged when cleared for prolonged period of time to get his saturations up. sedation was increased to prevent patient ventilator dyssynchrony. patient had purulent discharge coming out of his nose. NG tube was removed and OG tube was placed. continues to be sedated and on mechanical ventilation. Peep was increased to 10 and FiO2 to 100% which has been now weaned down to 50% -01/26 CT Chest showed IMPRESSION: 1. Patchy bilateral lung disease consistent with COVID pneumonia. 2. Mild likely reactive mediastinal lymphadenopathy. - Chest x-ray and ABGs reviewed, currently on 45% FiO2 and peep of 8. will change PEEP to 8 - patient starts coughing and becomes a synchronous with the vent on sedation holiday and desaturates - continue bronchodilators - sedated with fentanyl and propofol infusion, with daily sedation vacation. monitoring triglyceride levels - at Precedex - Sputum culture is growing yeast which probably is likely contaminant or colonizer but patient is on Diflucan - on empiric Zosyn - COVID-19 is being treated with dexamethasone - patient is self diuresing with high urine output (2) Sinusitis: Code(s): J32.9 - Chronic sinusitis, unspecified Status: Acute Assessment and Plan: - patient was noted to have purulent discharge from his nostrils and CT sinuses confirmed extensive sinusitis. IMPRESSION: 1. Extensive opacification of the paranasal sinuses and nasal cavity, predominantly new from 01/21/2021, which may be secondary to the presence of the nasogastric tube and endotracheal tube - NG tube was removed and replaced with OG tube. Antibiotics were changed to Zosyn - his discharge seems to have improved as I did not notice any today nurse also did not report any significant discharge this morning. I do not see any evidence to suspect fungal sinusitis but I will discuss with infectious disease. consult is pending.. Patient does have and controlled diabetes and is on steroids although is not Immunocompromised in any other way or form (3) Pneumonia due to COVID-19 virus: Code(s): U07.1 - COVID-19; J12.82 - Pneumonia due to coronavirus disease 2018 Status: Acute Assessment and Plan: according the records patient was positive for COVID-19 on a home COVID-19 test kit. - COVID PCR was positive in the hospital - continue droplet, airborne, contact isolation/precautions - although it is not a classical presentation of COVID-19 considering the patient is on supplemental oxygen and has abnormal chest x-ray, patient was started on dexamethasone 01/24. CT chest done yesterday confirmed bilateral infiltrates. Continue dexamethasone - patient not a candidate for remdesivir due to acute renal failure - monitor inflammatory markers (4) Septic shock: Code(s): A41.9 - Sepsis, unspecified organism; R65.21 - Severe sepsis with septic shock Status: Acute Assessment and Plan: patient presented with elevated WBC count, lactic acidosis, hypotension and was diagnosed with septic shock - chest x-ray and UA were clear on presentation, source of infection unknown - blood cultures and sputum cultures negative to date except [place] - patient was on cefepime and vancomycin. vancomycin was discontinued due to negative blood cultures. - patient was noted to have purulent discharge from his nostrils and CT sinuses confirmed extensive sinusitis.
[2021-01-30] MEDS: HEPARIN SODIUM 5,000 UNITS/ML VIAL 5000 UNITS SUB-Q ×2 (09:16→20:14)
[2021-01-30] MEDS: polyethylene glycoL 3350 17 GM POWD.PACK PO (09:16)
[2021-01-30] MEDS: MINERAL OIL/WHITE PETROLATUM OINTMENT 1 APPLIC EACH EYE ×2 (09:16→20:14)
[2021-01-30] MEDS: PANTOPRAZOLE SODIUM IV 40 MG VIAL IV PUSH ×2 (09:16→20:14)
[2021-01-30] MEDS: levETIRAcetam 500MG/NACL 100ML 500 MG/100 ML BAG 400 MG IVPB ×2 (09:27→20:09)
[2021-01-30] MEDS: dexmedeTOMIDine 400 MCG/100 ML 400 MCG/100 ML BAG 6.67 MCG IV CONT (09:41)
[2021-01-30] MEDS: FLUCONAZOLE 200 MG/NACL 100 ML 200 MG/100 ML BAG 100 MG IVPB (09:41)
[2021-01-30 09:53] LABS: Glucose Point of Care 136 mg/dl (65-105)
[2021-01-30 09:53] LABS: Glucose Point of Care 133 mg/dl (65-105)
[2021-01-30] MEDS: INSULIN HUMAN REGULAR (*BKC) 100 UNITS in SODIUM CHLORIDE 0.9% IV 99 ML 7.3 UNITS IV CONT (10:18)
--- NOTE | 2021-01-30 10:20 | P.PNNP_ITS ---
Progress Note: A&P Assessment and Plan (1) DB (acute kidney injury): Code(s): N17.9 - Acute kidney failure, unspecified Status: Acute Assessment and Plan: * unclear what baseline creatinine normally runs * given his poorly controlled diabetes, he may have some underlying CKD * suspect DB due to decreased volume intake/volume depletion, hypotension, covid, and hyperglycemia * renal ultrasound normal and urine electrolytes c/w pre-renal azotemia * creatinine is improved today. (2) Hyperkalemia: Code(s): E87.5 - Hyperkalemia Status: Acute Assessment and Plan: * Potassium is normal today. (3) Hypernatremia: Code(s): E87.0 - Hyperosmolality and hypernatremia Status: Acute Assessment and Plan: * due to free water deficit and insensible losses (fever) * titrate free water flushes to compensate * Sodium 150 today. * Continue D5W at 75 an hour. * follow repeat sodium levels (4) Septic shock: Code(s): A41.9 - Sepsis, unspecified organism; R65.21 - Severe sepsis with septic shock Status: Acute Assessment and Plan: * criteria of leukocytosis, lactic acidosis, and hypotension along with DB/ARF * no clear source as of yet (CXR and UA unrevealing) * Temperature is above 38 today * repeat CT scan on 01/26/21 showing diffuse hepatic steatosis, and findings consistent with COVID. * follow new culture data * continue antibiotics * Blood pressure doing fine (5) Acute respiratory failure: Code(s): J96.00 - Acute respiratory failure, unspecified whether with hypoxia or hypercapnia Status: Acute Assessment and Plan: * due to altered mental status, emesis, and inability to protect airway * now complicated by COVID-19 pneumonia * follow CXR and ABGs * FiO2 40%, peak airway pressure in the 30s, no volume around 12. * Continues on the ventilator. (6) DKA (diabetic ketoacidoses): Qualifiers: Diabetes mellitus complication detail: without coma Diabetes mellitus type: type 2 Qualified Code(s): E11.10 - Type 2 diabetes mellitus with ketoacidosis without coma Code(s): E11.10 - Type 2 diabetes mellitus with ketoacidosis without coma Status: Acute Assessment and Plan: * admitted with hyperglycemia, high anion gap acidosis and elevated BHOB * s/p aggressive IVF resuscitation * A1c quite elevated * attempting to wean insulin gtt (7) COVID-19: Code(s): U07.1 - COVID-19 Status: Acute Assessment and Plan: * tested positive by home kit * rechecked here and positive as well * respiratory/contact/droplet isolation * on steroid therapy Subjective Date/time seen: 01/30/21 10:20 Interval history: Italo is on the ventilator and sedated. blood pressure has been under pretty good control. He had a holiday from sedatives this morning and became somewhat agitated so is back on status is now. These are being changed to Precedex. Exam Narrative: Exam Narrative: General: WD/WN AA male intubated Heart: normal S1 and S2; no rub Or gallop Lungs: decreased at bases Abdomen: soft, nontender, nondistended, positive bowel sounds Extremities: no cyanosis or clubbing; 1+ edema Skin: no nodules or rash Objective Data Vital Signs Vital Signs: Vital Signs - 24 hr 01/29/21 11:13 01/29/21 11:53 01/29/21 12:00 Temperature 37.7 C H Pulse Rate 95 119 H 120 H Respira
--- NOTE | 2021-01-30 10:20 | PM.PNNEP ---
Progress Note: A&P Assessment and Plan (1) DB (acute kidney injury): Code(s): N17.9 - Acute kidney failure, unspecified Status: Acute Assessment and Plan: unclear what baseline creatinine normally runs given his poorly controlled diabetes, he may have some underlying CKD suspect DB due to decreased volume intake/volume depletion, hypotension, covid, and hyperglycemia renal ultrasound normal and urine electrolytes c/w pre-renal azotemia creatinine is improved today. (2) Hyperkalemia: Code(s): E87.5 - Hyperkalemia Status: Acute Assessment and Plan: Potassium is normal today. (3) Hypernatremia: Code(s): E87.0 - Hyperosmolality and hypernatremia Status: Acute Assessment and Plan: due to free water deficit and insensible losses (fever) titrate free water flushes to compensate Sodium 150 today. Continue D5W at 75 an hour. follow repeat sodium levels (4) Septic shock: Code(s): A41.9 - Sepsis, unspecified organism; R65.21 - Severe sepsis with septic shock Status: Acute Assessment and Plan: criteria of leukocytosis, lactic acidosis, and hypotension along with DB/ARF no clear source as of yet (CXR and UA unrevealing) Temperature is above [address] scan on 01/26/21 showing diffuse hepatic steatosis, and findings consistent with COVID. follow new culture data continue antibiotics Blood pressure doing fine (5) Acute respiratory failure: Code(s): J96.00 - Acute respiratory failure, unspecified whether with hypoxia or hypercapnia Status: Acute Assessment and Plan: due to altered mental status, emesis, and inability to protect airway now complicated by COVID-19 pneumonia follow CXR and ABGs FiO2 40%, peak airway pressure in the 30s, no volume around 12. Continues on the ventilator. (6) DKA (diabetic ketoacidoses): Qualifiers: Diabetes mellitus complication detail: without coma Diabetes mellitus type: type 2 Qualified Code(s): E11.10 - Type 2 diabetes mellitus with ketoacidosis without coma Code(s): E11.10 - Type 2 diabetes mellitus with ketoacidosis without coma Status: Acute Assessment and Plan: admitted with hyperglycemia, high anion gap acidosis and elevated BHOB s/p aggressive IVF resuscitation A1c quite elevated attempting to wean insulin gtt (7) COVID-19: Code(s): U07.1 - COVID-19 Status: Acute Assessment and Plan: tested positive by home kit rechecked here and positive as well respiratory/contact/droplet isolation on steroid therapy Subjective Date/time seen: 01/30/21 10:20 Interval history: Italo is on the ventilator and sedated. blood pressure has been under pretty good control. He had a holiday from sedatives this morning and became somewhat agitated so is back on status is now. These are being changed to Precedex. Exam Narrative: Exam Narrative: General: WD/WN AA male intubated Heart: normal S1 and S2; no rub Or gallop Lungs: decreased at bases Abdomen: soft, nontender, nondistended, positive bowel sounds Extremities: no cyanosis or clubbing; 1+ edema Skin: no nodules or rash Objective Data Vital Signs Vital Signs: Vital Signs - 24 hr 01/29/21 11:13 01/29/21 11:53 01/29/21 12:00 Temperature 37.7 C H Pulse Rate 95 119 H 120 H Respiratory Rate 24 H 22 H Blood Pressure 134/83 Pulse Oximetry 96 94 01/29/21 12:53 01/29/21 13:35 01/29/21 13:40 Temperature Pulse Rate 96 89 89 Respiratory Rate 25 H 24 H Blood Pressure Pulse Oximetry 96 01/29/21 14:00 01/29/21 14:43 01/29/21 14:51 Temperature 37.4 C Pulse Rate 90 91 108 H Respiratory Rate 25 H 25 H 29 H Blood Pressure 124/74 Pulse Oximetry 99 01/29/21 16:00 01/29/21 16:30 01/29/21 16:41 Temperature 37.8 C H Pulse Rate 106 H 108 H 106 H Respiratory Rate 24 H 28 H Blood Pressure 136/
--- NOTE | 2021-01-30 10:25 | PCDIET ---
ICU Rounding Note: Patient tolerating Glucerna 1.2 at 50mL goal rate with 200mL water flush every 4 hours. Residuals 150mL and below. Last recorded weight is 133.3kg which is increased from last review. +I/O. Bowel Motility: BM x 1 on 01/29/21. Labs Reviewed: WBC (27.2), RBC (3.19), Hgb (8.3), Hct (26.7), BUN (53), Cr (2.6), Na (150), Cl (114), TG (263), PO4 (6.0), Alb (3.2) Meds Noted: Versed, Keppra, Ativan, Levophed, Protonix, Zosyn, Miralax, Propofol (rate of 39.27mL/hr provides 1036kcal per day), Tylenol, Decadron, Precedex, Diflucan, Lantus, Atrovent, Xopenex, IV Insulin Additional Notes: MD monitoring lipase, LFTs, TG levels. May further adjust free water flush pending next BMP. Wound nurse consulted for friction area/maceration on right thigh. Following daily in ICU rounds. Assessing/reassessing every Saturday/Saturday.
--- NOTE | 2021-01-30 10:49 | WPDINFPN2 ---
Progress Note: A&P Assessment and Plan (1) Fever: Code(s): R50.9 - Fever, unspecified Status: Acute Assessment and Plan: 1. Fever, suspect due to CoVid 19 infection and nosocomial bacterial sinusitis (NG now out). 2. Donna mucosal colonization 3. Leukocytosis due to #1 and due to steroids 4. Poorly controlled DM REC PipTazo appropriate, no antifungal needed and doubt mucor or other opportunistic fungal sinusitis. Glycemic control underway. Keep steroids to a minimum. Stop PipTazo once afebrile 48 hours +. Subjective Date/time seen: 01/30/21 10:49 Objective Data Vital Signs Vital Signs: Vital Signs - 24 hr 01/29/21 11:13 01/29/21 11:53 01/29/21 12:00 Temperature 37.7 C H Pulse Rate 95 119 H 120 H Respiratory Rate 24 H 22 H Blood Pressure 134/83 Pulse Oximetry 96 94 01/29/21 12:53 01/29/21 13:35 01/29/21 13:40 Temperature Pulse Rate 96 89 89 Respiratory Rate 25 H 24 H Blood Pressure Pulse Oximetry 96 01/29/21 14:00 01/29/21 14:43 01/29/21 14:51 Temperature 37.4 C Pulse Rate 90 91 108 H Respiratory Rate 25 H 25 H 29 H Blood Pressure 124/74 Pulse Oximetry 99 01/29/21 16:00 01/29/21 16:30 01/29/21 16:41 Temperature 37.8 C H Pulse Rate 106 H 108 H 106 H Respiratory Rate 24 H 28 H Blood Pressure 136/91 H Pulse Oximetry 100 96 01/29/21 16:42 01/29/21 17:40 01/29/21 17:59 Temperature 37.8 C H Pulse Rate 106 H 118 H Respiratory Rate 28 H 20 Blood Pressure Pulse Oximetry 01/29/21 18:00 01/29/21 18:59 01/29/21 19:36 Temperature 37.8 C H 37.8 C H Pulse Rate 122 H 98 Respiratory Rate 24 H 24 H Blood Pressure 139/96 H Pulse Oximetry 98 01/29/21 20:00 01/29/21 20:15 01/29/21 20:40 Temperature 37.5 C Pulse Rate 90 91 89 Respiratory Rate 24 H 24 H 24 H Blood Pressure 116/68 Pulse Oximetry 99 01/29/21 20:41 01/29/21 21:43 01/29/21 22:00 Temperature 37.9 C H Pulse Rate 106 H 119 H 115 H Respiratory Rate 25 H 24 H Blood Pressure 136/83 Pulse Oximetry 100 99 01/29/21 22:39 01/29/21 23:15 01/29/21 23:42 Temperature Pulse Rate 100 96 90 Respiratory Rate 24 H 24 H Blood Pressure Pulse Oximetry 98 01/30/21 00:00 01/30/21 00:32 01/30/21 00:35 Temperature 37.4 C 37.2 C Pulse Rate 88 97 Respiratory Rate 24 H 24 H Blood Pressure 118/71 Pulse Oximetry 98 01/30/21 01:36 01/30/21 01:47 01/30/21 02:00 Temperature 37.4 C Pulse Rate 112 H 108 H 108 H Respiratory Rate 26 H 25 H 24 H Blood Pressure 146/91 H Pulse Oximetry 99 01/30/21 02:53 01/30/21 03:10 01/30/21 03:18 Temperature Pulse Rate 100 96 97 Respiratory Rate 24 H 24 H Blood Pressure Pulse Oximetry 95 01/30/21 04:00 01/30/21 04:09 01/30/21 04:37 Temperature 37.4 C Pulse Rate 104 H 116 H 116 H Respiratory Rate 24 H 25 H 25 H Blood Pressure 140/79 Pulse Oximetry 94 01/30/21 05:00 01/30/21 05:08 01/30/21 05:22 Temperature Pulse Rate 116 H 125 H 127 H Respiratory Rate 25 H 30 H Blood Pressure Pulse Oximetry 93 01/30/21 05:38 01/30/21 05:45 01/30/21 06:00 Temperature 38.1 C H Pulse Rate 121 H 124 H 128 H Respiratory Rate 26 H 26 H 27 H Blood Pressure 122/74 Pulse Oximetry 96 01/30/21 06:36 01/30/21 06:47 01/30/21 07:46 Temperature 38.4 C H Pulse Rate 133 H 126 H Respiratory Rate 35 H Blood Pressure Pulse Oximetry 97 01/30/21 07:47 01/30/21 07:48 01/30/21 07:58 Temperature 38.4 C H Pulse Rate 126 H 126 H Respiratory Rate 24 H 24 H Blood Pressure Pulse Oximetry 01/30/21 08:00 01/30/21 08:15 01/30/21 09:14 Temperature Pulse Rate 130 H 134 H 105 H Respiratory Rate 26 H 28 H 25 H Blood Pressure Pulse Oximetry 01/30/21 09:41 Temperature Pulse Rate 100 Respiratory Rate 24 H Blood Pressure Pulse Oximetry Intake/Output Intake/Output: Intake & Output 01/27/21 01/28/21 01/29/21 01/30/21 23:59 23:59 23:59
[2021-01-30 10:52] LABS: Glucose Point of Care 132 mg/dl (65-105)
--- NOTE | 2021-01-30 10:59 | PM.IMPN ---
Progress Note: A&P Assessment and Plan (1) Hyperosmolar coma due to secondary diabetes: Code(s): E13.01 - Other specified diabetes mellitus with hyperosmolarity with coma Status: Acute Assessment and Plan: Sugar is better no continue with insulin drip monitor blood sugar as per ICU protocol A1c noted to be more than 14 (2) High anion gap metabolic acidosis: Code(s): E87.2 - Acidosis Status: Acute Assessment and Plan: improved With improved glycemia as well as the hemodialysis (3) Acute respiratory failure: Code(s): J96.00 - Acute respiratory failure, unspecified whether with hypoxia or hypercapnia Status: Acute Assessment and Plan: patient is intubated on the ventilator at this time Related to pneumonia Intubated on 01/21/2021 Continue vent management per ICU (4) Acute renal failure: Qualifiers: Acute renal failure type: unspecified Qualified Code(s): N17.9 - Acute kidney failure, unspecified Code(s): N17.9 - Acute kidney failure, unspecified Status: Acute Assessment and Plan: consult nephrology Presented with acute kidney injury, lactic acidosis, hyperkalemia initially fluid resuscitated. She was started on hemodialysis per nephrology team. Renal ultrasound was unremarkable with no stones masses or hydronephrosis Urine output currently decent and renal parameters improving (5) COVID-19: Code(s): U07.1 - COVID-19 Status: Acute Assessment and Plan: confirmatory test COVID positive On droplet isolation Started on dexamethasone 01/24 CT chest done confirms pneumonic consolidation sputum culture growing gram-negative bacilli and yeast yet to be identified (6) History of seizure disorder: Code(s): Z86.69 - Personal history of other diseases of the nervous system and sense organs Status: Acute Assessment and Plan: consider neurology consultation and EEG (7) Hypernatremia: Code(s): E87.0 - Hyperosmolality and hypernatremia Status: Acute Assessment and Plan: mild continue to monitor 312 flushes and D5 water added per ICU team (8) Hyperkalemia: Code(s): E87.5 - Hyperkalemia Status: Acute Assessment and Plan: resolved with hemodialysis remains off hemodialysis. creatinine continues to improve with good urine output (9) DVT prophylaxis: Code(s): Z29.9 - Encounter for prophylactic measures, unspecified Status: Acute Assessment and Plan: on heparin subcu (10) Septic shock: Code(s): A41.9 - Sepsis, unspecified organism; R65.21 - Severe sepsis with septic shock Status: Acute Assessment and Plan: resolved off Levophed (11) Fever: Code(s): R50.9 - Fever, unspecified Status: Acute Assessment and Plan: continues to have fever on broad-spectrum antibiotics repeat cultures done on 01/25 which is pending Lipase level elevated Additional Plan 01/30/21: Will continue with current plan of care and treatment. Repeat chest x-ray slightly better. Patient making good amount of urine. Will wean off as tolerated by patient, will monitor electrolytes and CBC. Subjective Date/time seen: 01/30/21 10:59 Patient was seen during the morning rounds. Intubated and sedated. No new Overnight complaints. Interval history: Review of Systems Review of Systems: ROS unobtainable: Yes unobtainable due to medical condition ( ALTERED MENTAL STATUS ON VENTILATOR SUPPORT) Exam Narrative: Exam Narrative: Const: sedated and vented, not in distress HENMT: Other: ETT in place Neck: Neck: supple Resp: on vent coarse breath sounds heard bilaterally equal air entry Cardio: Rate: regular rate and rhythm GI: soft nondistended normal bowel sound : Other: Botello catheter in place with clear urine in bag Skin: normal color and no rashes or lesions noted Neuro: intubated a
[2021-01-30] MEDS: PROPOFOL IV EMULSION 100 ML 35.34 MG IV CONT (11:58)
[2021-01-30 12:09] LABS: Glucose Point of Care 134 mg/dl (65-105)
[2021-01-30 13:21] LABS: Glucose Point of Care 142 mg/dl (65-105)
[2021-01-30] MEDS: PROPOFOL IV EMULSION 100 ML 31.42 MG IV CONT (14:03)
[2021-01-30 14:11] LABS: Glucose Point of Care 174 mg/dl (65-105)
--- NOTE | 2021-01-30 14:35 | CONS_ITS ---
DATE OF CONSULTATION: 01/30/2021 REASON FOR CONSULTATION: Fever. HISTORY OF PRESENT ILLNESS: A 36-year-old male who cannot provide any history as he is sedated and intubated. He was brought to the hospital on January 21 with vomiting, decreased level of consciousness, generalized weakness. He was found to have marked hyperglycemia with acidosis. The patient had a positive home coronavirus assay performed 3 days before admission. Here the patient has been treated for diabetic ketoacidosis, acute renal failure, respiratory insufficiency requiring intubation on his first hospital day, sinusitis, abnormal liver function tests, chemical pancreatitis. He has been given dexamethasone for the coronavirus infection, currently 6 mg daily. He was started on piperacillin tazobactam on January 26 due to breakthrough fever. At the time, he had purulent nasal discharge. His NG was switched to an orogastric tube. His nasal discharge has resolved. He still has hyperglycemia at times. ALLERGIES: NONE KNOWN. HABITS: Active smoker and marijuana and 3 drinks per week. PRESENT MEDICATIONS: No other immunosuppressants. He has not received any biologics. FAMILY HISTORY: Not pertinent to his present illness. SOCIAL HISTORY: He is . Lives locally. No family at the bedside. PAST MEDICAL HISTORY: Seizure disorder, details not available. Otherwise negative. REVIEW OF SYSTEMS: 14-point review not obtainable from the patient. Negative except per record. PHYSICAL EXAMINATION: GENERAL: Young male who appears his actual age. No acute distress. VITAL SIGNS: T-max 38.4 core temperature, 122/74. Saturation 96% on 50% O2. Pulse 128, respirations 27. SKIN: Warm and dry. No rashes. No ulcerations and no skin breakdown. NODES: He has no axillary or cervical adenopathy. EENT: He has mildly injected conjunctivae bilaterally. No hemorrhages. No petechiae. He has no paranasal sinus erythema, edema or tenderness. Orally intubated and that compromises oral exam, but otherwise appears normal on inspection. NECK: He has no meningismus. No masses. No thyromegaly. LUNGS: Bilateral rales. Breath sounds are vesicular throughout. Clear to percussion. CHEST: He has a right IJ triple-lumen catheter without drainage,. erythema or warmth. CARDIAC: Tachycardic, regular. No murmur, gallop or rub. Pulses are 2+ and equal throughout. ABDOMEN: Morbidly obese. No masses, tenderness, or distention. He has hypoactive but present bowel sounds. : Botello catheter draining clear yellow urine. EXTREMITIES: No clubbing, cyanosis, or edema. Well perfused. LABORATORY DATA: His white count has been persistently high 27.2 today, similar to previous. Hemoglobin 8.3, platelets are 393. Blood gases; 7.37, 42, 65, 24, 92%. AA gradient 172, down from 277, 2 days ago. He has hypernatremia, chloride is 114, BUN 53, creatinine 2.6, lower than previous. Hemoglobin A1c 14.0% or higher. Phosphorus high. Magnesium normal. Liver function tests were approximately 10 times normal, now down to 6 to 7 times normal. Alkaline phosphatase 263, LDH high, CRP 19, albumin 3.2. Urinalysis, multiple abnormalities, which are reviewed. His hepatitis panel nonreactive except surface antibody all suggestive of a vaccinated status. His coronavirus assay performed early on hospital day 2 was positive. From admission, blood cultures final, no growth. Sputum from the following day as well as the 30th with Donna albicans. Blood cultures, no growth after 5 days incubation. Urine culture also with C albicans. RADIOLOGY: Sinus CT showed extensive opacification, new from 01/21. Chest, abdomen, pelvis CT same day with patchy bilateral lung disease, reactive adenopathy, hepatic steatosis. Chest x-ray performed today
[2021-01-30 15:14] LABS: Glucose Point of Care 155 mg/dl (65-105)
[2021-01-30 16:21] LABS: Glucose Point of Care 158 mg/dl (65-105)
[2021-01-30] MEDS: dexmedeTOMIDine 400 MCG/100 ML 400 MCG/100 ML BAG 20 MCG IV CONT (17:33)
[2021-01-30 17:43] LABS: Anion Gap 10 mmol/L (8-16); Blood Urea Nitrogen 55 mg/dL (9-20); Carbon Dioxide 22 mmol/L (22-30); Chloride 113 mmol/L (98-107); Estimated CRCL calculation 45 ml/min; Estimated Glomerular Filt Rate 29; Glucose 166 mg/dL (75-110); Potassium 5.2 mmol/L (3.4-5.0); Sodium 145 mmol/L (137-145)
[2021-01-30] MEDS: PROPOFOL IV EMULSION 100 ML 23.56 MG IV CONT (17:47)
[2021-01-30 17:53] LABS: Lactate Dehydrogenase 1273 U/L (313-618)
[2021-01-30 18:01] LABS: CRP 19.7 mg/dL (<1.0)
[2021-01-30 18:22] LABS: Glucose Point of Care 163 mg/dl (65-105)
[2021-01-30 18:23] LABS: Glucose Point of Care 181 mg/dl (65-105)
[2021-01-30 19:06] LABS: Glucose Point of Care 168 mg/dl (65-105)
[2021-01-30] MEDS: INSULIN HUMAN REGULAR (*BKC) 100 UNITS in SODIUM CHLORIDE 0.9% IV 99 ML 11.8 UNITS IV CONT (19:57)
[2021-01-30] MEDS: SODIUM POLYSTYRENE SULFONONATE 15 GM/60 ML BTL 30 GM PO (19:59)
[2021-01-30] MEDS: PROPOFOL IV EMULSION 100 ML 27.49 MG IV CONT ×2 (20:11→23:37)
[2021-01-30] MEDS: INSULIN GLARGINE (*BKC) 100 UNITS/ML 70 UNITS SUB-Q (20:31)
[2021-01-30 20:35] LABS: Glucose Point of Care 131 mg/dl (65-105)
[2021-01-30] MEDS: dexmedeTOMIDine 400 MCG/100 ML 400 MCG/100 ML BAG 23.33 MCG IV CONT (21:28)
[2021-01-30 21:32] LABS: Glucose Point of Care 152 mg/dl (65-105)
[2021-01-30 23:44] LABS: Glucose Point of Care 167 mg/dl (65-105)
[2021-01-30 23:44] LABS: Glucose Point of Care 151 mg/dl (65-105)
[2021-01-30 23:51] LABS: Anion Gap 11 mmol/L (8-16); Blood Urea Nitrogen 56 mg/dL (9-20); Carbon Dioxide 22 mmol/L (22-30); Chloride 113 mmol/L (98-107); Estimated CRCL calculation 45 ml/min; Estimated Glomerular Filt Rate 29; Glucose 149 mg/dL (75-110); Potassium 4.9 mmol/L (3.4-5.0); Sodium 146 mmol/L (137-145)
[2021-01-31] VITALS (50 sets, daily range): BP systolic 129–155; BP diastolic 80–101; PULSE 72–98; RESP 24–29; TEMP 37.2–38.4; O2SAT 92–98
[2021-01-31] MEDS: ACETAMINOPHEN ELIXIR 325 MG/10.15 ML UDC 650 MG PO ×2 (00:28→05:39)
[2021-01-31] MEDS: dexmedeTOMIDine 400 MCG/100 ML 400 MCG/100 ML BAG 29.99 MCG IV CONT (01:01)
[2021-01-31] MEDS: LEVALBUTEROL NEB 1.25 MG/3 ML 0.63 MG INHALATION ×4 (01:56→20:15)
[2021-01-31] MEDS: IPRATROPIUM BR 0.02% INH SOLN 0.5 MG/2.5 ML VIAL INHALATION ×4 (01:56→20:15)
[2021-01-31 02:39] LABS: Glucose Point of Care 147 mg/dl (65-105)
[2021-01-31 02:39] LABS: Glucose Point of Care 136 mg/dl (65-105)
[2021-01-31] MEDS: PROPOFOL IV EMULSION 100 ML 27.49 MG IV CONT ×5 (02:57→18:50)
[2021-01-31 04:14] LABS: Hemoglobin 8.5 g/dL (14.0-18.0); Mean Corpuscular HGB Conc 30.4 g/dl (32-36); Mean Corpuscular Volume 85.6 fl (80-100); Mean Platelet Volume 9.6 fl (7.4-10.4); Platelet Count Result 361 k/mm3 (150-375); Red Blood Count 3.27 M/mm3 (4.6-6.20); Red Cell Distribution Width 14.4 % (11.5-14.5)
[2021-01-31 04:16] LABS: Glucose Point of Care 109 mg/dl (65-105)
[2021-01-31] MEDS: dexmedeTOMIDine 400 MCG/100 ML 400 MCG/100 ML BAG 23.33 MCG IV CONT ×3 (04:22→22:38)
[2021-01-31 04:30] LABS: Alanine Aminotransferase 340 U/L (4-50); Albumin Level 3.4 g/dL (3.5-5.1); Alkaline Phosphatase 291 U/L (38-126); Anion Gap 12 mmol/L (8-16); Aspartate Amino Transferase 205 U/L (17-59); Bilirubin,Total 0.4 mg/dL (0.2-1.3); Blood Urea Nitrogen 55 mg/dL (9-20); Calcium 9.8 mg/dL (8.4-10.2); Carbon Dioxide 23 mmol/L (22-30); Chloride 115 mmol/L (98-107); Estimated CRCL calculation 48 ml/min; Estimated Glomerular Filt Rate 31; Glucose 118 mg/dL (75-110); Lipase 226 U/L (23-300); Magnesium 2.4 mg/dL (1.6-2.3); Phosphorus 6.7 mg/dL (2.5-4.5); Potassium 4.6 mmol/L (3.4-5.0); Sodium 150 mmol/L (137-145); Triglycerides 175 mg/dL (<150)
[2021-01-31 04:42] LABS: Alveolar/Arterial O2 Gradient 149.3 mmHg; Base Excess ABG -3.5 mEq/l (+/-2.0); Carboxyhemoglobin 0.2 % THb (0-2.0); Fractional Inspired Oxygen 40 %; HCO3 ABG 20.8 mEq/l (22.0-26.0); Methemoglobin ABG 0.5 %THb (0-1.5); Oxygen Content ABG 11.9 %vol (16.0-22.0); Oxygen Saturation ABG 97.5 % (95.0-100.0); PO2 ABG 96.8 mmHg (80.0-100.0); PO2 FiO2 Ratio Arterial Blood 2.42 %; Reduced Hemoglobin 3.3 %THb (0-5.0); Total Hemoglobin 8.7 g/dL (12.0-18.0); pH ABG 7.404 (7.350-7.450)
[2021-01-31 04:43] LABS: Arterial Blood Gas Ventilator rate 24 /MIN; Device VENTILATOR; Modified Allen's Test Pass; Site Drawn LEFT RADIAL
[2021-01-31 04:44] LABS: Arterial Blood Gas PEEP 8 cmH2O; Arterial Blood Gas Tidal Volume 500 ml; Arterial Blood Gas Vent Mode CMV
[2021-01-31] MEDS: CENTRAL LINE FLUSH 10 ML IV PUSH ×4 (05:39→20:18)
[2021-01-31 05:52] LABS: Glucose Point of Care 156 mg/dl (65-105)
--- NOTE | 2021-01-31 06:35 | P.PNNP_ITS ---
Progress Note: A&P Assessment and Plan (1) DB (acute kidney injury): Code(s): N17.9 - Acute kidney failure, unspecified Status: Acute Assessment and Plan: * unclear what baseline creatinine normally runs * given his poorly controlled diabetes, he may have some underlying CKD * suspect DB due to decreased volume intake/volume depletion, hypotension, covid, and hyperglycemia * renal ultrasound normal and urine electrolytes c/w pre-renal azotemia * creatinine is up and down around 3. * He made 1800cc of urine overnight (2) Hyperkalemia: Code(s): E87.5 - Hyperkalemia Status: Acute Assessment and Plan: * Potassium is normal today. (3) Hypernatremia: Code(s): E87.0 - Hyperosmolality and hypernatremia Status: Acute Assessment and Plan: * due to free water deficit and insensible losses (fever) * will check serum and urine osmolality to be sure. * On 200cc q.4 of tube feeding flushes. * Tube feedings are 1.2 callus per cc. * Sodium dropped to 145 yesterday afternoon so D5W was held. * Sodium level back up to 150. Will restart D5W at40cc an hour. * follow repeat sodium levels (4) Septic shock: Code(s): A41.9 - Sepsis, unspecified organism; R65.21 - Severe sepsis with septic shock Status: Acute Assessment and Plan: * criteria of leukocytosis, lactic acidosis, and hypotension along with DB/ARF * no clear source as of yet (CXR and UA unrevealing) * Temperature is Still high. * repeat CT scan on 01/26/21 showing diffuse hepatic steatosis, and findings consistent with COVID. * follow new culture data * Donna in the urine and sputum. (5) Acute respiratory failure: Code(s): J96.00 - Acute respiratory failure, unspecified whether with hypoxia or hypercapnia Status: Acute Assessment and Plan: * due to altered mental status, emesis, and inability to protect airway * now complicated by COVID-19 pneumonia * follow CXR and ABGs * FiO2 40%, peak airway pressure in the 30s, Ve about 12, PEEP 8. * Continues on the ventilator. (6) DKA (diabetic ketoacidoses): Qualifiers: Diabetes mellitus complication detail: without coma Diabetes mellitus type: type 2 Qualified Code(s): E11.10 - Type 2 diabetes mellitus with ketoacidosis without coma Code(s): E11.10 - Type 2 diabetes mellitus with ketoacidosis without coma Status: Acute Assessment and Plan: * admitted with hyperglycemia, high anion gap acidosis and elevated BHOB * s/p aggressive IVF resuscitation * A1c quite elevated * anion gap is down to 12. * Insulin drip up and down. (7) COVID-19: Code(s): U07.1 - COVID-19 Status: Acute Assessment and Plan: * tested positive by home kit * rechecked here and positive as well * respiratory/contact/droplet isolation * on steroid therapy Subjective Date/time seen: 01/31/21 06:35 Interval history: Italo is on the ventilator and sedated. Blood pressure in the 140s. Comfortable on the ventilator. Still running fevers Exam Narrative: Exam Narrative: General: WD/WN AA male intubated Heart: normal S1 and S2; no rub p Lungs: decreased at bases and symmetric Abdomen: soft, nontender, nondistended, positive bowel sounds Extremities: 1+ edema Skin: no nodules Objective Data Vital Signs Vital Signs: Vital Signs - 24 hr 01/30/21 06:36 01/30/21 06:47 01/30
--- NOTE | 2021-01-31 06:35 | PM.PNNEP ---
Progress Note: A&P Assessment and Plan (1) DB (acute kidney injury): Code(s): N17.9 - Acute kidney failure, unspecified Status: Acute Assessment and Plan: unclear what baseline creatinine normally runs given his poorly controlled diabetes, he may have some underlying CKD suspect DB due to decreased volume intake/volume depletion, hypotension, covid, and hyperglycemia renal ultrasound normal and urine electrolytes c/w pre-renal azotemia creatinine is up and down around 3. He made 1800cc of urine overnight (2) Hyperkalemia: Code(s): E87.5 - Hyperkalemia Status: Acute Assessment and Plan: Potassium is normal today. (3) Hypernatremia: Code(s): E87.0 - Hyperosmolality and hypernatremia Status: Acute Assessment and Plan: due to free water deficit and insensible losses (fever) will check serum and urine osmolality to be sure. On 200cc q.4 of tube feeding flushes. Tube feedings are 1.2 callus per cc. Sodium dropped to 145 yesterday afternoon so D5W was held. Sodium level back up to 150. Will restart D5W at40cc an hour. follow repeat sodium levels (4) Septic shock: Code(s): A41.9 - Sepsis, unspecified organism; R65.21 - Severe sepsis with septic shock Status: Acute Assessment and Plan: criteria of leukocytosis, lactic acidosis, and hypotension along with DB/ARF no clear source as of yet (CXR and UA unrevealing) Temperature is Still high. repeat CT scan on 01/26/21 showing diffuse hepatic steatosis, and findings consistent with COVID. follow new culture data Donna in the urine and sputum. (5) Acute respiratory failure: Code(s): J96.00 - Acute respiratory failure, unspecified whether with hypoxia or hypercapnia Status: Acute Assessment and Plan: due to altered mental status, emesis, and inability to protect airway now complicated by COVID-19 pneumonia follow CXR and ABGs FiO2 40%, peak airway pressure in the 30s, Ve about 12, PEEP 8. Continues on the ventilator. (6) DKA (diabetic ketoacidoses): Qualifiers: Diabetes mellitus complication detail: without coma Diabetes mellitus type: type 2 Qualified Code(s): E11.10 - Type 2 diabetes mellitus with ketoacidosis without coma Code(s): E11.10 - Type 2 diabetes mellitus with ketoacidosis without coma Status: Acute Assessment and Plan: admitted with hyperglycemia, high anion gap acidosis and elevated BHOB s/p aggressive IVF resuscitation A1c quite elevated anion gap is down to 12. Insulin drip up and down. (7) COVID-19: Code(s): U07.1 - COVID-19 Status: Acute Assessment and Plan: tested positive by home kit rechecked here and positive as well respiratory/contact/droplet isolation on steroid therapy Subjective Date/time seen: 01/31/21 06:35 Interval history: Italo is on the ventilator and sedated. Blood pressure in the 140s. Comfortable on the ventilator. Still running fevers Exam Narrative: Exam Narrative: General: WD/WN AA male intubated Heart: normal S1 and S2; no rub p Lungs: decreased at bases and symmetric Abdomen: soft, nontender, nondistended, positive bowel sounds Extremities: 1+ edema Skin: no nodules Objective Data Vital Signs Vital Signs: Vital Signs - 24 hr 01/30/21 06:36 01/30/21 06:47 01/30/21 07:46 Temperature 38.4 C H Pulse Rate 133 H 126 H Respiratory Rate 35 H Blood Pressure Pulse Oximetry 97 01/30/21 07:47 01/30/21 07:48 01/30/21 07:58 Temperature 38.4 C H Pulse Rate 126 H 126 H Respiratory Rate 24 H 24 H Blood Pressure Pulse Oximetry 01/30/21 08:00 01/30/21 08:15 01/30/21 09:14 Temperature 38.4 C H Pulse Rate 123 H 134 H 105 H Respiratory Rate 24 H 28 H 25 H Blood Pressure 104/49 L Pulse Oximetry 94 01/30/21 09:41 01/30/21 10:00 01/30/21 11:30 Temperat
[2021-01-31] MEDS: INSULIN HUMAN REGULAR (*BKC) 100 UNITS in SODIUM CHLORIDE 0.9% IV 99 ML 18.5 UNITS IV CONT (06:41)
[2021-01-31 07:02] LABS: Glucose Point of Care 214 mg/dl (65-105)
[2021-01-31] MEDS: PROPOFOL IV EMULSION 100 ML 31.42 MG IV CONT ×2 (08:58→21:46)
[2021-01-31] MEDS: DEXTROSE 5% 1,000 ML 1,000 ML 40 ML IV CONT (08:59)
[2021-01-31] MEDS: HEPARIN SODIUM 5,000 UNITS/ML VIAL 5000 UNITS SUB-Q ×2 (09:02→20:11)
[2021-01-31] MEDS: polyethylene glycoL 3350 17 GM POWD.PACK PO (09:02)
[2021-01-31] MEDS: PANTOPRAZOLE SODIUM IV 40 MG VIAL IV PUSH ×2 (09:02→20:17)
[2021-01-31] MEDS: MINERAL OIL/WHITE PETROLATUM OINTMENT 1 APPLIC EACH EYE ×2 (09:02→20:11)
[2021-01-31] MEDS: levETIRAcetam 500MG/NACL 100ML 500 MG/100 ML BAG 200 MG IVPB (09:26)
[2021-01-31] MEDS: INSULIN GLARGINE (*BKC) 100 UNITS/ML 70 UNITS SUB-Q ×2 (09:31→21:33)
[2021-01-31 10:02] LABS: Anion Gap 10 mmol/L (8-16); Blood Urea Nitrogen 54 mg/dL (9-20); Calcium 9.7 mg/dL (8.4-10.2); Carbon Dioxide 23 mmol/L (22-30); Chloride 117 mmol/L (98-107); Estimated CRCL calculation 49 ml/min; Estimated Glomerular Filt Rate 33; Glucose 135 mg/dL (75-110); Potassium 4.4 mmol/L (3.4-5.0); Sodium 150 mmol/L (137-145)
--- NOTE | 2021-01-31 11:23 | PCDIET ---
Nutrition Follow-Up Complete: Nutrition Diagnosis: Inadequate oral intake related to oral intubation as evidenced by NPO status. Nutrition Goal: Patient to meet estimated nutritional needs. Goal met. Patient tolerating Glucerna 1.2 at 50mL/hr goal rate with 200mL water flush every 4 hours. Sodium unchanged from last review, despite D5/Water that is being provided. If no improvement on next lab draw, would further increase free water flushes. Last recorded weight is 132.1 kg which is down from last review. +I/O. Bowel Motility: Liquid stools, per RN. Labs Reviewed: WBC (22.0), RBC (3.27), Hgb (8.5), Hct (28.0), Glu (118), BUN (55), Cr (2.80), Na (150), Cl (115), Alb (3.4) Meds Noted: D5/Water at 40mL/hr, Decadron, Lantus, Atrovent, Precedex, Insulin, Xopenex, Keppra, Versed, Levophed, Protonix, Zosyn, Miralax, Propofol (rate of 31.42mL/hr provides 829kcal per day) Additional Notes: Patient had Kayexalate 01/30/21. Recommend stopping Miralax if loose stools persist. Blisters to right thigh reported. No documented pressure sores. Will continue to monitor with same goal. Nutrition Monitoring and Evaluation: Follow up every Saturday/Saturday.
[2021-01-31 12:30] LABS: Glucose Point of Care 136 mg/dl (65-105)
[2021-01-31 12:30] LABS: Glucose Point of Care 135 mg/dl (65-105)
[2021-01-31 12:30] LABS: Glucose Point of Care 136 mg/dl (65-105)
[2021-01-31 12:30] LABS: Glucose Point of Care 145 mg/dl (65-105)
--- NOTE | 2021-01-31 12:43 | WPDINTPN ---
Progress Note: A&P Assessment and Plan (1) Acute respiratory failure: Code(s): J96.00 - Acute respiratory failure, unspecified whether with hypoxia or hypercapnia Status: Acute Assessment and Plan: Patient with acute respiratory failure, intubated on 01/21/2021 due to mental status changes and emesis, to protect his airway. - 01/26 Patient desaturated when repositioned for CT scan yesterday. He had to be bagged when cleared for prolonged period of time to get his saturations up. sedation was increased to prevent patient ventilator dyssynchrony. patient had purulent discharge coming out of his nose. NG tube was removed and OG tube was placed. continues to be sedated and on mechanical ventilation. Peep was increased to 10 and FiO2 to 100% which has been now weaned down to 50% -01/26 CT Chest showed IMPRESSION: 1. Patchy bilateral lung disease consistent with COVID pneumonia. 2. Mild likely reactive mediastinal lymphadenopathy. - Chest x-ray and ABGs reviewed, currently on 40% FiO2 and peep of 8. - patient starts coughing and becomes dyssynchronous with the vent on sedation holiday and desaturates - continue bronchodilators - sedated with Propofol and Precedex infusion, daily sedation vacation, monitor triglyceride levels - Sputum culture is growing yeast which probably is likely contaminant or colonizer, Diflucan was discontinued by Infectious Disease - on empiric Zosyn - COVID-19 is being treated with dexamethasone - patient is self diuresing with high urine output (2) Sinusitis: Code(s): J32.9 - Chronic sinusitis, unspecified Status: Acute Assessment and Plan: - patient was noted to have purulent discharge from his nostrils and CT sinuses confirmed extensive sinusitis. - continue Zosyn IMPRESSION: 1. Extensive opacification of the paranasal sinuses and nasal cavity, predominantly new from 01/21/2021, which may be secondary to the presence of the nasogastric tube and endotracheal tube - NG tube was removed and replaced with OG tube. Antibiotics were changed to Zosyn - his discharge seems to have improved as I did not notice any today nurse also did not report any significant discharge this morning. I do not see any evidence to suspect fungal sinusitis but I will discuss with infectious disease. consult is pending.. Patient does have and controlled diabetes and is on steroids although is not Immunocompromised in any other way or form (3) Pneumonia due to COVID-19 virus: Code(s): U07.1 - COVID-19; J12.82 - Pneumonia due to coronavirus disease 2018 Status: Acute Assessment and Plan: according the records patient was positive for COVID-19 on a home COVID-19 test kit. - COVID PCR was positive in the hospital - continue droplet, airborne, contact isolation/precautions - although it is not a classical presentation of COVID-19 considering the patient is on supplemental oxygen and has abnormal chest x-ray, patient was started on dexamethasone 01/24. -CT chest done 01/26/2021: confirmed bilateral infiltrates. Continue dexamethasone - patient not a candidate for remdesivir due to acute renal failure - monitor inflammatory markers (4) Septic shock: Code(s): A41.9 - Sepsis, unspecified organism; R65.21 - Severe sepsis with septic shock Status: Acute Assessment and Plan: patient presented with elevated WBC count, lactic acidosis, hypotension and was diagnosed with septic shock - chest x-ray and UA were clear on presentation, source of infection unknown - blood cultures and sputum cultures negative to date except [place] - patient was on cefepime and vancomycin. vancomycin was discontinued due to negative blood cultures. - patient was noted to have purulent discharge from his nostrils and CT sinuses confirmed extensive sinusitis. - OFF vasopressors
--- NOTE | 2021-01-31 13:32 | PM.IMPN ---
Progress Note: A&P Assessment and Plan (1) Hyperosmolar coma due to secondary diabetes: Code(s): E13.01 - Other specified diabetes mellitus with hyperosmolarity with coma Status: Acute Assessment and Plan: Sugar is better no continue with insulin drip monitor blood sugar as per ICU protocol A1c noted to be more than 14 01/31/21 13:32 patient morbidly obese with history of diabetes presented with DKA, severe metabolic acidosis, fever found to have a COVID-19 and bacterial sinusitis and viral pneumonia patient is on ventilator being treated with Zosyn seen by ID recommended to continue for another 5 days, patient with Jose Eduardo seen by nephrology suspect secondary to hypotension, poor perfusion and dehydration, patient has developed a jerking tremor-like movement discussed with mica plate layer hand there is no neurologist currently available, will try to transfer the patient to tertiary care further evaluate and further recommendation to follow (2) High anion gap metabolic acidosis: Code(s): E87.2 - Acidosis Status: Acute Assessment and Plan: improved With improved glycemia as well as the hemodialysis (3) Acute respiratory failure: Code(s): J96.00 - Acute respiratory failure, unspecified whether with hypoxia or hypercapnia Status: Acute Assessment and Plan: patient is intubated on the ventilator at this time Related to pneumonia Intubated on 01/21/2021 Continue vent management per ICU (4) Acute renal failure: Qualifiers: Acute renal failure type: unspecified Qualified Code(s): N17.9 - Acute kidney failure, unspecified Code(s): N17.9 - Acute kidney failure, unspecified Status: Acute Assessment and Plan: consult nephrology Presented with acute kidney injury, lactic acidosis, hyperkalemia initially fluid resuscitated. She was started on hemodialysis per nephrology team. Renal ultrasound was unremarkable with no stones masses or hydronephrosis Urine output currently decent and renal parameters improving (5) COVID-19: Code(s): U07.1 - COVID-19 Status: Acute Assessment and Plan: confirmatory test COVID positive On droplet isolation Started on dexamethasone 01/24 CT chest done confirms pneumonic consolidation sputum culture growing gram-negative bacilli and yeast yet to be identified (6) History of seizure disorder: Code(s): Z86.69 - Personal history of other diseases of the nervous system and sense organs Status: Acute Assessment and Plan: consider neurology consultation and EEG (7) Hypernatremia: Code(s): E87.0 - Hyperosmolality and hypernatremia Status: Acute Assessment and Plan: mild continue to monitor 312 flushes and D5 water added per ICU team (8) Hyperkalemia: Code(s): E87.5 - Hyperkalemia Status: Acute Assessment and Plan: resolved with hemodialysis remains off hemodialysis. creatinine continues to improve with good urine output (9) DVT prophylaxis: Code(s): Z29.9 - Encounter for prophylactic measures, unspecified Status: Acute Assessment and Plan: on heparin subcu (10) Septic shock: Code(s): A41.9 - Sepsis, unspecified organism; R65.21 - Severe sepsis with septic shock Status: Acute Assessment and Plan: resolved off Levophed (11) Fever: Code(s): R50.9 - Fever, unspecified Status: Acute Assessment and Plan: continues to have fever on broad-spectrum antibiotics repeat cultures done on 01/25 which is pending Lipase level elevated Additional Plan 01/30/21: Will continue with current plan of care and treatment. Repeat chest x-ray slightly better. Patient making good amount of urine. Will wean off as tolerated by patient, will monitor electrolytes and CBC. Subjective Date/time seen: 01/31/21 13:32 patient morbidly obese with history of diabetes presented with DKA, severe metabol
[2021-01-31 14:37] LABS: Anion Gap 10 mmol/L (8-16); Blood Urea Nitrogen 51 mg/dL (9-20); Calcium 9.8 mg/dL (8.4-10.2); Carbon Dioxide 23 mmol/L (22-30); Chloride 117 mmol/L (98-107); Estimated CRCL calculation 53 ml/min; Estimated Glomerular Filt Rate 36; Glucose 175 mg/dL (75-110); Sodium 150 mmol/L (137-145)
[2021-01-31] MEDS: INSULIN HUMAN REGULAR (*BKC) 100 UNITS in SODIUM CHLORIDE 0.9% IV 99 ML 11.8 UNITS IV CONT (15:51)
[2021-01-31] MEDS: dexmedeTOMIDine 400 MCG/100 ML 400 MCG/100 ML BAG IV CONT ×2 (15:55→18:16)
[2021-01-31 18:28] LABS: Anion Gap 11 mmol/L (8-16); Blood Urea Nitrogen 49 mg/dL (9-20); Calcium 9.9 mg/dL (8.4-10.2); Carbon Dioxide 23 mmol/L (22-30); Chloride 114 mmol/L (98-107); Estimated CRCL calculation 58 ml/min; Estimated Glomerular Filt Rate 39; Glucose 148 mg/dL (75-110); Potassium 4.7 mmol/L (3.4-5.0); Sodium 148 mmol/L (137-145)
[2021-01-31 18:56] LABS: Glucose Point of Care 159 mg/dl (65-105)
[2021-01-31 18:56] LABS: Glucose Point of Care 174 mg/dl (65-105)
[2021-01-31 18:56] LABS: Glucose Point of Care 126 mg/dl (65-105)
[2021-01-31 18:56] LABS: Glucose Point of Care 145 mg/dl (65-105)
[2021-01-31] MEDS: levETIRAcetam 500MG/NACL 100ML 500 MG/100 ML BAG 400 MG IVPB (20:07)
[2021-01-31 21:58] LABS: Glucose Point of Care 122 mg/dl (65-105)
[2021-01-31 21:58] LABS: Glucose Point of Care 99 mg/dl (65-105)
[2021-01-31 22:03] LABS: Anion Gap 8 mmol/L (8-16); Blood Urea Nitrogen 47 mg/dL (9-20); Calcium 9.9 mg/dL (8.4-10.2); Carbon Dioxide 25 mmol/L (22-30); Chloride 115 mmol/L (98-107); Estimated CRCL calculation 60 ml/min; Estimated Glomerular Filt Rate 41; Glucose 127 mg/dL (75-110); Potassium 4.9 mmol/L (3.4-5.0); Sodium 148 mmol/L (137-145)
[2021-02-01] VITALS (56 sets, daily range): BP systolic 131–147; BP diastolic 84–95; PULSE 72–98; RESP 24–31; TEMP 37.1–38.1; O2SAT 91–100
[2021-02-01 00:07] LABS: Glucose Point of Care 119 mg/dl (65-105)
[2021-02-01 00:07] LABS: Glucose Point of Care 116 mg/dl (65-105)
[2021-02-01] MEDS: PROPOFOL IV EMULSION 100 ML 31.42 MG IV CONT ×6 (00:48→15:30)
[2021-02-01 01:25] LABS: Anion Gap 7 mmol/L (8-16); Blood Urea Nitrogen 45 mg/dL (9-20); Calcium 9.9 mg/dL (8.4-10.2); Carbon Dioxide 25 mmol/L (22-30); Chloride 115 mmol/L (98-107); Estimated CRCL calculation 66 ml/min; Estimated Glomerular Filt Rate 46; Glucose 117 mg/dL (75-110); Potassium 4.8 mmol/L (3.4-5.0); Sodium 147 mmol/L (137-145)
[2021-02-01] MEDS: LEVALBUTEROL NEB 1.25 MG/3 ML 0.63 MG INHALATION ×4 (01:55→20:51)
[2021-02-01] MEDS: IPRATROPIUM BR 0.02% INH SOLN 0.5 MG/2.5 ML VIAL INHALATION ×4 (01:56→20:51)
[2021-02-01] MEDS: dexmedeTOMIDine 400 MCG/100 ML 400 MCG/100 ML BAG 23.33 MCG IV CONT ×2 (02:34→06:44)
[2021-02-01 02:51] LABS: Glucose Point of Care 123 mg/dl (65-105)
[2021-02-01 02:51] LABS: Glucose Point of Care 113 mg/dl (65-105)
[2021-02-01] MEDS: INSULIN HUMAN REGULAR (*BKC) 100 UNITS in SODIUM CHLORIDE 0.9% IV 99 ML 7.2 UNITS IV CONT (04:29)
[2021-02-01] MEDS: CENTRAL LINE FLUSH 10 ML IV PUSH ×4 (04:42→20:48)
[2021-02-01 05:05] LABS: Alveolar/Arterial O2 Gradient 308.5 mmHg; Base Excess ABG -1.4 mEq/l (+/-2.0); Carboxyhemoglobin 0.3 % THb (0-2.0); Device VENTILATOR; Fractional Inspired Oxygen 60 %; HCO3 ABG 22.2 mEq/l (22.0-26.0); Methemoglobin ABG 0.3 %THb (0-1.5); Modified Allen's Test Unable to perform; Oxygen Content ABG 12.8 %vol (16.0-22.0); Oxygen Saturation ABG 96.7 % (95.0-100.0); Oxyhemoglobin 95.6 % THb (90.0-100.0); PCO2 ABG 32.8 mmHg (35.0-45.0); PO2 ABG 83.2 mmHg (80.0-100.0); PO2 FiO2 Ratio Arterial Blood 1.39 %; Reduced Hemoglobin 3.8 %THb (0-5.0); Site Drawn RIGHT RADIAL; Total Hemoglobin 9.4 g/dL (12.0-18.0); pH ABG 7.448 (7.350-7.450)
[2021-02-01 05:06] LABS: Arterial Blood Gas PEEP 8 cmH2O; Arterial Blood Gas Tidal Volume 500 ml; Arterial Blood Gas Vent Mode CMV; Arterial Blood Gas Ventilator rate 24 /MIN
[2021-02-01 05:08] LABS: Hematocrit 26.6 % (42.0-52.0); Hemoglobin 8.2 g/dL (14.0-18.0); Mean Corpuscular HGB Conc 30.8 g/dl (32-36); Mean Corpuscular Hemoglobin 25.8 pg (26-34); Mean Corpuscular Volume 83.6 fl (80-100); Mean Platelet Volume 10.4 fl (7.4-10.4); Platelet Count Result 392 k/mm3 (150-375); Red Blood Count 3.18 M/mm3 (4.6-6.20); Red Cell Distribution Width 14.1 % (11.5-14.5); White Blood Count 23.2 K/mm3 (4.5-10.0)
[2021-02-01 05:27] LABS: Alanine Aminotransferase 244 U/L (4-50); Albumin Level 3.2 g/dL (3.5-5.1); Alkaline Phosphatase 261 U/L (38-126); Anion Gap 10 mmol/L (8-16); Aspartate Amino Transferase 84 U/L (17-59); Bilirubin,Total 0.3 mg/dL (0.2-1.3); Blood Urea Nitrogen 44 mg/dL (9-20); Calcium 9.8 mg/dL (8.4-10.2); Carbon Dioxide 24 mmol/L (22-30); Chloride 115 mmol/L (98-107); Estimated CRCL calculation 69 ml/min; Estimated Glomerular Filt Rate 49; Glucose 122 mg/dL (75-110); Magnesium 2.1 mg/dL (1.6-2.3); Phosphorus 6.5 mg/dL (2.5-4.5); Potassium 4.7 mmol/L (3.4-5.0); Sodium 149 mmol/L (137-145)
[2021-02-01 05:52] LABS: Glucose Point of Care 119 mg/dl (65-105)
[2021-02-01 05:52] LABS: Glucose Point of Care 125 mg/dl (65-105)
[2021-02-01 06:53] LABS: Glucose Point of Care 106 mg/dl (65-105)
[2021-02-01] MEDS: HEPARIN SODIUM 5,000 UNITS/ML VIAL 5000 UNITS SUB-Q ×2 (08:05→20:36)
[2021-02-01] MEDS: INSULIN GLARGINE (*BKC) 100 UNITS/ML 70 UNITS SUB-Q ×2 (08:05→21:08)
[2021-02-01] MEDS: MINERAL OIL/WHITE PETROLATUM OINTMENT 1 APPLIC EACH EYE ×2 (08:06→20:36)
[2021-02-01] MEDS: levETIRAcetam 500MG/NACL 100ML 500 MG/100 ML BAG 200 MG IVPB ×2 (08:06→13:56)
[2021-02-01] MEDS: PANTOPRAZOLE SODIUM IV 40 MG VIAL IV PUSH ×2 (08:06→20:37)
--- NOTE | 2021-02-01 08:18 | P.PNNP_ITS ---
Progress Note: A&P Assessment and Plan (1) DB (acute kidney injury): Code(s): N17.9 - Acute kidney failure, unspecified Status: Acute Assessment and Plan: * unclear what baseline creatinine normally runs * given his poorly controlled diabetes, he may have some underlying CKD * suspect DB due to decreased volume intake/volume depletion, hypotension, covid, and hyperglycemia * renal ultrasound normal and urine electrolytes c/w pre-renal azotemia * creatinine is gradually improving. Today is 1.9. * Yesterday his urine total was 4700. (2) Hyperkalemia: Code(s): E87.5 - Hyperkalemia Status: Acute Assessment and Plan: * Potassium is normal today. (3) Hypernatremia: Code(s): E87.0 - Hyperosmolality and hypernatremia Status: Acute Assessment and Plan: * due to free water deficit and insensible losses (fever) * serum and urine osmolality are pending * On 200cc q.4 of tube feeding flushes. * Tube feedings are 1.2 cals per cc. * on D5W at40cc an hour. * Intake/output is even. * Sodium level still 149. * His oxygenation is a little worse today as his FiO2 is now up to 60%. * Will try diuretics to help the oxygenation and we can laxmi D5W if his sodium rises. * We will try Bumex 1 mg b.i.d.. Check a sodium level this afternoon. * Discussed with Dr. Kerns (4) Septic shock: Code(s): A41.9 - Sepsis, unspecified organism; R65.21 - Severe sepsis with septic shock Status: Acute Assessment and Plan: * criteria of leukocytosis, lactic acidosis, and hypotension along with DB/ARF * no clear source as of yet (CXR and UA unrevealing) * Temperature is finally down. * repeat CT scan on 01/26/21 showing diffuse hepatic steatosis, and findings consistent with COVID. * Donna in the urine and sputum. (5) Acute respiratory failure: Code(s): J96.00 - Acute respiratory failure, unspecified whether with hypoxia or hypercapnia Status: Acute Assessment and Plan: * due to altered mental status, emesis, and inability to protect airway * now complicated by COVID-19 pneumonia * follow CXR and ABGs * FiO2 up to 60% * Continues on the ventilator. (6) DKA (diabetic ketoacidoses): Qualifiers: Diabetes mellitus complication detail: without coma Diabetes mellitus type: type 2 Qualified Code(s): E11.10 - Type 2 diabetes mellitus with ketoaci dosis without coma Code(s): E11.10 - Type 2 diabetes mellitus with ketoacidosis without coma Status: Acute Assessment and Plan: * admitted with hyperglycemia, high anion gap acidosis and elevated BHOB * s/p aggressive IVF resuscitation * A1c quite elevated * anion gap is down to 12. * Insulin drip up and down. (7) COVID-19: Code(s): U07.1 - COVID-19 Status: Acute Assessment and Plan: * tested positive by home kit * rechecked here and positive as well * respiratory/contact/droplet isolation * on steroid therapy Subjective Date/time seen: 02/01/21 08:18 Interval history: Italo is on the ventilator. eyes open and regards examiner at times. Comfortable on the ventilator. Exam Narrative: Exam Narrative: General: WD/WN AA male intubated Heart: normal S1 and S2; no rub Or gallop Lungs: decreased at bases and symmetric Abdomen: soft, nontender, nondistended, positive bowel sounds Extremities: 1+ edema and no cyanosis Skin: no nodules Objective Data Vital Si
--- NOTE | 2021-02-01 08:18 | PM.PNNEP ---
Progress Note: A&P Assessment and Plan (1) DB (acute kidney injury): Code(s): N17.9 - Acute kidney failure, unspecified Status: Acute Assessment and Plan: unclear what baseline creatinine normally runs given his poorly controlled diabetes, he may have some underlying CKD suspect DB due to decreased volume intake/volume depletion, hypotension, covid, and hyperglycemia renal ultrasound normal and urine electrolytes c/w pre-renal azotemia creatinine is gradually improving. Today is 1.9. Yesterday his urine total was 4700. (2) Hyperkalemia: Code(s): E87.5 - Hyperkalemia Status: Acute Assessment and Plan: Potassium is normal today. (3) Hypernatremia: Code(s): E87.0 - Hyperosmolality and hypernatremia Status: Acute Assessment and Plan: due to free water deficit and insensible losses (fever) serum and urine osmolality are pending On 200cc q.4 of tube feeding flushes. Tube feedings are 1.2 cals per cc. on D5W at40cc an hour. Intake/output is even. Sodium level still 149. His oxygenation is a little worse today as his FiO2 is now up to 60%. Will try diuretics to help the oxygenation and we can laxmi D5W if his sodium rises. We will try Bumex 1 mg b.i.d.. Check a sodium level this afternoon. Discussed with Dr. Kerns (4) Septic shock: Code(s): A41.9 - Sepsis, unspecified organism; R65.21 - Severe sepsis with septic shock Status: Acute Assessment and Plan: criteria of leukocytosis, lactic acidosis, and hypotension along with DB/ARF no clear source as of yet (CXR and UA unrevealing) Temperature is finally down. repeat CT scan on 01/26/21 showing diffuse hepatic steatosis, and findings consistent with COVID. Donna in the urine and sputum. (5) Acute respiratory failure: Code(s): J96.00 - Acute respiratory failure, unspecified whether with hypoxia or hypercapnia Status: Acute Assessment and Plan: due to altered mental status, emesis, and inability to protect airway now complicated by COVID-19 pneumonia follow CXR and ABGs FiO2 up to 60% Continues on the ventilator. (6) DKA (diabetic ketoacidoses): Qualifiers: Diabetes mellitus complication detail: without coma Diabetes mellitus type: type 2 Qualified Code(s): E11.10 - Type 2 diabetes mellitus with ketoacidosis without coma Code(s): E11.10 - Type 2 diabetes mellitus with ketoacidosis without coma Status: Acute Assessment and Plan: admitted with hyperglycemia, high anion gap acidosis and elevated BHOB s/p aggressive IVF resuscitation A1c quite elevated anion gap is down to 12. Insulin drip up and down. (7) COVID-19: Code(s): U07.1 - COVID-19 Status: Acute Assessment and Plan: tested positive by home kit rechecked here and positive as well respiratory/contact/droplet isolation on steroid therapy Subjective Date/time seen: 02/01/21 08:18 Interval history: Italo is on the ventilator. eyes open and regards examiner at times. Comfortable on the ventilator. Exam Narrative: Exam Narrative: General: WD/WN AA male intubated Heart: normal S1 and S2; no rub Or gallop Lungs: decreased at bases and symmetric Abdomen: soft, nontender, nondistended, positive bowel sounds Extremities: 1+ edema and no cyanosis Skin: no nodules Objective Data Vital Signs Vital Signs: Vital Signs - 24 hr 01/31/21 08:26 01/31/21 08:40 01/31/21 08:58 Temperature Pulse Rate 81 81 81 Respiratory Rate 24 H 24 H Blood Pressure Pulse Oximetry 93 01/31/21 09:00 01/31/21 10:00 01/31/21 11:31 Temperature 38.1 C H Pulse Rate 81 84 89 Respiratory Rate 24 H 24 H Blood Pressure 138/86 Pulse Oximetry 93 93 01/31/21 12:00 01/31/21 12:09 01/31/21 12:13 Temperature 37.7 C H Pulse Rate 89 77 89 Respiratory Rate 24 H 24 H 24 H Blo
[2021-02-01] MEDS: BUMETANIDE INJ 1 MG/4 ML VIAL IV PUSH ×2 (10:20→18:12)
--- NOTE | 2021-02-01 10:44 | PCDIET ---
ICU Rounding Note: Patient tolerating Glucerna 1.2 at 50mL/hr with 200mL water flush every 4 hours. Residuals 200mL and below. Clarified with RN that 200mL flush is being provided every 4 hours. Last recorded weight is 131.4kg which is slightly decreased from last review. -I/O noted. Bowel Motility: RN reports loose stools. Miralax held today. Discussed during rounds; do not recommend changes in tube feeding at this time, as patient had no loose stools prior to Kayalexalate and Miralax. Also on antibiotics. Labs Reviewed: WBC (23.2), RBC (3.18), Hgb (8.2), Hgb (26.6), Glu (122), BUN (44), Cr (1.9), Na (149), Alb (3.2), Cl (115), PO4 (6.5) Meds Noted: Bumex, Heparin, Lantus, Propofol (rate of 31.42mL/hr provides 829kcal per day), Decadron, IV Insulin, Precedex, Atrovent, Zosyn, Xopenex, Versed, Levophed, Protonix, Bumex Additional Notes: Buttocks macerated, per wound nurse. Following daily in ICU rounds. Assessing/reassessing every Saturday/Saturday.
[2021-02-01] MEDS: dexmedeTOMIDine 400 MCG/100 ML 400 MCG/100 ML BAG 29.99 MCG IV CONT ×4 (11:01→21:06)
[2021-02-01] MEDS: DEXTROSE 5% 1,000 ML 1,000 ML 40 ML IV CONT (11:09)
[2021-02-01] MEDS: LORazepam INJ (*CRX) 2 MG/ML VIAL IV PUSH ×2 (11:09→15:50)
[2021-02-01 12:44] LABS: Anion Gap 12 mmol/L (8-16); Blood Urea Nitrogen 41 mg/dL (9-20); Calcium 10.1 mg/dL (8.4-10.2); Carbon Dioxide 25 mmol/L (22-30); Chloride 112 mmol/L (98-107); Estimated CRCL calculation 69 ml/min; Estimated Glomerular Filt Rate 49; Glucose 147 mg/dL (75-110); Sodium 149 mmol/L (137-145)
[2021-02-01 12:51] LABS: Lactate Dehydrogenase 960 U/L (313-618)
[2021-02-01 13:01] LABS: CRP 18.4 mg/dL (<1.0)
--- NOTE | 2021-02-01 13:28 | PM.IMPN ---
Progress Note: A&P Assessment and Plan (1) Hyperosmolar coma due to secondary diabetes: Code(s): E13.01 - Other specified diabetes mellitus with hyperosmolarity with coma Status: Acute Assessment and Plan: Sugar is better no continue with insulin drip monitor blood sugar as per ICU protocol A1c noted to be more than 14 02/01/21 13:28 01/31 patient morbidly obese with history of diabetes presented with DKA, severe metabolic acidosis, fever found to have a COVID-19 and bacterial sinusitis and viral pneumonia patient is on ventilator being treated with Zosyn seen by ID recommended to continue for another 5 days, patient with Jose Eduardo seen by nephrology suspect secondary to hypotension, poor perfusion and dehydration, patient has developed a jerking tremor-like movement discussed with chucking and boring machine operator there is no neurologist currently available, will try to transfer the patient to tertiary care further evaluate and further recommendation to follow. 02/01 patient remains clinically stable still on vent, hyperglycemia on insulin drip, hypernatremia most likely secondary to free water fluid deficit, chucking and boring machine operator has increased free water flushes, patient is accepted at the [facility], waiting for the bed, patient seen by chucking and boring machine operator and manufacturing lead appreciate. (2) High anion gap metabolic acidosis: Code(s): E87.2 - Acidosis Status: Acute Assessment and Plan: improved With improved glycemia as well as the hemodialysis (3) Acute respiratory failure: Code(s): J96.00 - Acute respiratory failure, unspecified whether with hypoxia or hypercapnia Status: Acute Assessment and Plan: patient is intubated on the ventilator at this time Related to pneumonia Intubated on 01/21/2021 Continue vent management per ICU (4) Acute renal failure: Qualifiers: Acute renal failure type: unspecified Qualified Code(s): N17.9 - Acute kidney failure, unspecified Code(s): N17.9 - Acute kidney failure, unspecified Status: Acute Assessment and Plan: consult nephrology Presented with acute kidney injury, lactic acidosis, hyperkalemia initially fluid resuscitated. She was started on hemodialysis per nephrology team. Renal ultrasound was unremarkable with no stones masses or hydronephrosis Urine output currently decent and renal parameters improving (5) COVID-19: Code(s): U07.1 - COVID-19 Status: Acute Assessment and Plan: confirmatory test COVID positive On droplet isolation Started on dexamethasone 01/24 CT chest done confirms pneumonic consolidation sputum culture growing gram-negative bacilli and yeast yet to be identified (6) History of seizure disorder: Code(s): Z86.69 - Personal history of other diseases of the nervous system and sense organs Status: Acute Assessment and Plan: consider neurology consultation and EEG (7) Hypernatremia: Code(s): E87.0 - Hyperosmolality and hypernatremia Status: Acute Assessment and Plan: mild continue to monitor 312 flushes and D5 water added per ICU team (8) Hyperkalemia: Code(s): E87.5 - Hyperkalemia Status: Acute Assessment and Plan: resolved with hemodialysis remains off hemodialysis. creatinine continues to improve with good urine output (9) DVT prophylaxis: Code(s): Z29.9 - Encounter for prophylactic measures, unspecified Status: Acute Assessment and Plan: on heparin subcu (10) Septic shock: Code(s): A41.9 - Sepsis, unspecified organism; R65.21 - Severe sepsis with septic shock Status: Acute Assessment and Plan: resolved off Levophed (11) Fever: Code(s): R50.9 - Fever, unspecified Status: Acute Assessment and Plan: continues to have fever on broad-spectrum antibiotics repeat cultures done on 01/25 which is pending Lipase level elevated Additional Plan
[2021-02-01] MEDS: INSULIN HUMAN REGULAR (*BKC) 100 UNITS in SODIUM CHLORIDE 0.9% IV 99 ML 9.1 UNITS IV CONT (15:31)
[2021-02-01] MEDS: ACETAMINOPHEN ELIXIR 325 MG/10.15 ML UDC 650 MG PO ×2 (15:49→22:55)
[2021-02-01 18:05] LABS: Glucose Point of Care 143 mg/dl (65-105)
[2021-02-01 18:05] LABS: Glucose Point of Care 137 mg/dl (65-105)
[2021-02-01 18:05] LABS: Glucose Point of Care 130 mg/dl (65-105)
[2021-02-01 18:05] LABS: Glucose Point of Care 171 mg/dl (65-105)
[2021-02-01 18:05] LABS: Glucose Point of Care 141 mg/dl (65-105)
[2021-02-01 18:05] LABS: Glucose Point of Care 169 mg/dl (65-105)
[2021-02-01] MEDS: PROPOFOL IV EMULSION 100 ML 3.94 MG IV CONT (18:13)
[2021-02-01 18:15] LABS: Anion Gap 9 mmol/L (8-16); Blood Urea Nitrogen 40 mg/dL (9-20); Carbon Dioxide 27 mmol/L (22-30); Chloride 112 mmol/L (98-107); Estimated CRCL calculation 73 ml/min; Estimated Glomerular Filt Rate 52; Glucose 122 mg/dL (75-110); Potassium 5.1 mmol/L (3.4-5.0); Sodium 148 mmol/L (137-145)
[2021-02-01] MEDS: levETIRAcetam 500MG/NACL 100ML 500 MG/100 ML BAG 400 MG IVPB (20:37)
[2021-02-01 20:54] LABS: Glucose Point of Care 114 mg/dl (65-105)
[2021-02-01] MEDS: PROPOFOL IV EMULSION 100 ML 31.54 MG IV CONT (21:09)
[2021-02-01 22:45] LABS: Glucose Point of Care 114 mg/dl (65-105)
[2021-02-02] VITALS (37 sets, daily range): BP systolic 102–137; BP diastolic 63–90; PULSE 78–89; RESP 24–35; TEMP 38.1–38.7; O2SAT 93–99
[2021-02-02] LABS: Anion Gap 10 mmol/L (8-16); Blood Urea Nitrogen 40 mg/dL (9-20); Calcium 9.9 mg/dL (8.4-10.2); Carbon Dioxide 26 mmol/L (22-30); Chloride 111 mmol/L (98-107); Estimated CRCL calculation 73 ml/min; Estimated Glomerular Filt Rate 52; Glucose 105 mg/dL (75-110); Potassium 4.7 mmol/L (3.4-5.0); Sodium 147 mmol/L (137-145)
[2021-02-02] MEDS: PROPOFOL IV EMULSION 100 ML 35.48 MG IV CONT ×4 (00:07→14:01)
[2021-02-02] MEDS: dexmedeTOMIDine 400 MCG/100 ML 400 MCG/100 ML BAG 33.33 MCG IV CONT ×5 (00:08→15:17)
[2021-02-02] MEDS: LORazepam INJ (*CRX) 2 MG/ML VIAL IV PUSH (01:20)
[2021-02-02 01:30] LABS: Glucose Point of Care 106 mg/dl (65-105)
[2021-02-02 01:30] LABS: Glucose Point of Care 90 mg/dl (65-105)
[2021-02-02] MEDS: fentaNYL CITRATE INJ (*CRX) 100 MCG/2 ML VIAL 50 MCG IV PUSH (02:13)
[2021-02-02] MEDS: FENTANYL 2,500MCG/NS250ML(*CRX 2,500 MCG/250 ML BAG IV CONT (02:13)
--- NOTE | 2021-02-02 02:15 | PC.NURSE ---
Dr. Domínguez notified regarding increased respirations and 100% Fio2 requirements. Order for fentanyl drip received. [facility] and [facility] also updated, no bed available at this time, still on wait list.
[2021-02-02 02:22] LABS: Glucose Point of Care 112 mg/dl (65-105)
--- NOTE | 2021-02-02 02:22 | PCDIET ---
Fentanyl drip started due to increase respirations and FIO2 requirements. Dr Domínguez was notified for drip order. Patient not back to 60% FiO2 with an O2sat of 96%. Respirations no longer 35-40. Now at 25-28. Continue to monitor. [facility] and [facility] updates were given, still no current beds available. Still on wait list.
[2021-02-02] MEDS: LEVALBUTEROL NEB 1.25 MG/3 ML 0.63 MG INHALATION ×3 (02:42→13:24)
[2021-02-02] MEDS: IPRATROPIUM BR 0.02% INH SOLN 0.5 MG/2.5 ML VIAL INHALATION ×3 (02:42→13:24)
[2021-02-02] MEDS: PROPOFOL IV EMULSION 100 ML 31.54 MG IV CONT (02:51)
[2021-02-02] MEDS: dexmedeTOMIDine 400 MCG/100 ML 400 MCG/100 ML BAG 26.66 MCG IV CONT (02:52)
[2021-02-02 04:16] LABS: Osmolality, Urine 235 mOsm/kg (50-1200)
[2021-02-02] MEDS: INSULIN HUMAN REGULAR (*BKC) 100 UNITS in SODIUM CHLORIDE 0.9% IV 99 ML IV CONT (04:16)
[2021-02-02 04:36] LABS: Hematocrit 27.5 % (42.0-52.0); Hemoglobin 8.3 g/dL (14.0-18.0); Mean Corpuscular HGB Conc 30.2 g/dl (32-36); Mean Corpuscular Hemoglobin 25.6 pg (26-34); Mean Corpuscular Volume 84.9 fl (80-100); Mean Platelet Volume 10.2 fl (7.4-10.4); Platelet Count Result 411 k/mm3 (150-375); Red Blood Count 3.24 M/mm3 (4.6-6.20); White Blood Count 21.7 K/mm3 (4.5-10.0)
[2021-02-02 04:48] LABS: Alanine Aminotransferase 178 U/L (4-50); Albumin Level 3.4 g/dL (3.5-5.1); Alkaline Phosphatase 243 U/L (38-126); Anion Gap 9 mmol/L (8-16); Aspartate Amino Transferase 55 U/L (17-59); Bilirubin,Total 0.3 mg/dL (0.2-1.3); Blood Urea Nitrogen 38 mg/dL (9-20); Calcium 9.7 mg/dL (8.4-10.2); Carbon Dioxide 27 mmol/L (22-30); Chloride 112 mmol/L (98-107); Estimated CRCL calculation 73 ml/min; Estimated Glomerular Filt Rate 52; Glucose 98 mg/dL (75-110); Magnesium 1.8 mg/dL (1.6-2.3); Phosphorus 5.7 mg/dL (2.5-4.5); Potassium 4.5 mmol/L (3.4-5.0); Sodium 148 mmol/L (137-145)
[2021-02-02] MEDS: ACETAMINOPHEN ELIXIR 325 MG/10.15 ML UDC 650 MG PO ×2 (05:15→12:04)
[2021-02-02] MEDS: levETIRAcetam 500MG/NACL 100ML 500 MG/100 ML BAG 400 MG IVPB ×2 (05:20→14:50)
[2021-02-02] MEDS: CENTRAL LINE FLUSH 10 ML IV PUSH ×2 (05:20→14:50)
[2021-02-02] MEDS: PROPOFOL IV EMULSION 100 ML 39.42 MG IV CONT (05:41)
[2021-02-02 06:04] LABS: Glucose Point of Care 125 mg/dl (65-105)
[2021-02-02 06:04] LABS: Glucose Point of Care 99 mg/dl (65-105)
[2021-02-02 06:37] LABS: Alveolar/Arterial O2 Gradient 300.6 mmHg; Base Excess ABG -0.9 mEq/l (+/-2.0); Carboxyhemoglobin 0.2 % THb (0-2.0); Fractional Inspired Oxygen 60 %; HCO3 ABG 23.6 mEq/l (22.0-26.0); Methemoglobin ABG 0.5 %THb (0-1.5); Oxygen Content ABG 13.2 %vol (16.0-22.0); Oxygen Saturation ABG 96.5 % (95.0-100.0); Oxyhemoglobin 94.8 % THb (90.0-100.0); PCO2 ABG 38.4 mmHg (35.0-45.0); PO2 FiO2 Ratio Arterial Blood 1.42 %; Reduced Hemoglobin 4.5 %THb (0-5.0); Total Hemoglobin 9.8 g/dL (12.0-18.0); pH ABG 7.406 (7.350-7.450)
[2021-02-02 06:39] LABS: Modified Allen's Test Unable to perform; Site Drawn RIGHT RADIAL
[2021-02-02 06:40] LABS: Arterial Blood Gas PEEP 8 cmH2O; Arterial Blood Gas Tidal Volume 500 ml; Arterial Blood Gas Vent Mode CMV; Arterial Blood Gas Ventilator rate 24 /MIN; Device VENTILATOR
[2021-02-02 06:40] LABS: Glucose Point of Care 111 mg/dl (65-105)
[2021-02-02] MEDS: INSULIN GLARGINE (*BKC) 100 UNITS/ML 70 UNITS SUB-Q (08:00)
[2021-02-02] MEDS: HEPARIN SODIUM 5,000 UNITS/ML VIAL 5000 UNITS SUB-Q (09:30)
[2021-02-02] MEDS: MINERAL OIL/WHITE PETROLATUM OINTMENT 1 APPLIC EACH EYE (09:30)
[2021-02-02] MEDS: BUMETANIDE INJ 1 MG/4 ML VIAL IV PUSH (09:30)
[2021-02-02] MEDS: PANTOPRAZOLE SODIUM IV 40 MG VIAL IV PUSH (09:30)
--- NOTE | 2021-02-02 11:57 | WPDINTPN ---
Progress Note: A&P Assessment and Plan (1) Acute respiratory failure: Code(s): J96.00 - Acute respiratory failure, unspecified whether with hypoxia or hypercapnia Status: Acute Assessment and Plan: Patient with acute respiratory failure, intubated on 01/21/2021 due to mental status changes and emesis, to protect his airway. - 01/26 Patient desaturated when repositioned for CT scan yesterday. He had to be bagged when cleared for prolonged period of time to get his saturations up. sedation was increased to prevent patient ventilator dyssynchrony. patient had purulent discharge coming out of his nose. NG tube was removed and OG tube was placed. continues to be sedated and on mechanical ventilation. PEEP of 8. - 01/31 SPUTUM cx growing Staph Aureus - started on Vancomycin -01/26 CT Chest showed IMPRESSION: 1. Patchy bilateral lung disease consistent with COVID pneumonia. 2. Mild likely reactive mediastinal lymphadenopathy. - Chest x-ray and ABGs reviewed, currently on 60% FiO2 and peep of 8. - patient starts coughing and becomes dyssynchronous with the vent on sedation holiday and desaturates - continue bronchodilators - sedated with Propofol and Precedex infusion, daily sedation vacation, monitor triglyceride levels - 01/25: Sputum culture is growing yeast which probably is likely contaminant or colonizer, Diflucan was discontinued by Infectious Disease - on empiric Zosyn for sinusitis - COVID-19 is being treated with dexamethasone - patient is self diuresing with high urine output (2) Sinusitis: Code(s): J32.9 - Chronic sinusitis, unspecified Status: Acute Assessment and Plan: - patient was noted to have purulent discharge from his nostrils and CT sinuses confirmed extensive sinusitis. - continue Zosyn IMPRESSION: 1. Extensive opacification of the paranasal sinuses and nasal cavity, predominantly new from 01/21/2021, which may be secondary to the presence of the nasogastric tube and endotracheal tube - NG tube was removed and replaced with OG tube. Antibiotics were changed to Zosyn - his discharge seems to have improved as I did not notice any today nurse also did not report any significant discharge this morning. I do not see any evidence to suspect fungal sinusitis but I will discuss with infectious disease. consult is pending.. Patient does have and controlled diabetes and is on steroids although is not Immunocompromised in any other way or form (3) Pneumonia due to COVID-19 virus: Code(s): U07.1 - COVID-19; J12.82 - Pneumonia due to coronavirus disease 2018 Status: Acute Assessment and Plan: according the records patient was positive for COVID-19 on a home COVID-19 test kit. - COVID PCR was positive in the hospital - continue droplet, airborne, contact isolation/precautions - although it is not a classical presentation of COVID-19 considering the patient is on supplemental oxygen and has abnormal chest x-ray, patient was started on dexamethasone 01/24. -CT chest done 01/26/2021: confirmed bilateral infiltrates. Continue dexamethasone - patient not a candidate for remdesivir due to acute renal failure - monitor inflammatory markers (4) Septic shock: Code(s): A41.9 - Sepsis, unspecified organism; R65.21 - Severe sepsis with septic shock Status: Acute Assessment and Plan: OFF PRESSORS patient presented with elevated WBC count, lactic acidosis, hypotension and was diagnosed with septic shock - chest x-ray and UA were clear on presentation, source of infection unknown - blood cultures and sputum cultures negative to date except [place] - patient was on cefepime and vancomycin. vancomycin was discontinued due to negative blood cultures. - patient was noted to have purulent discharge from his nostrils and CT sinuses confirmed extensive sinusitis. - OFF vasopressors
--- NOTE | 2021-02-02 12:06 | PM.TDS ---
Transfer Discharge Sum: Prov Provider Date of admission: 01/21/21 23:31 Primary care physician: [facility] Admitting clinician: Cristhian Lobato MD Consults: 01/21/21 Consult to Physician Routine Comment: Consulting Provider: Keith Gorman call center nurse/MD group to consult: Nephrology Reason for consultation: DB Has provider been notified: Yes 01/21/21 23:55 Consult to Physician Routine Comment: Consulting Provider: Félix Kerns Reason for consultation: DKA, acute renal failure, hyperkalemia Has provider been notified: Yes 01/24/21 Consult to Physician Routine Comment: Consulting Provider: Italo Barraza Reason for consultation: Tunneled Dialysis Catheter Has provider been notified: No 01/29/21 Consult to Physician Routine Comment: called pager with consult call back number Consulting Provider: Christian Sousa call center nurse/MD group to consult: Infectious Disease Reason for consultation: Donna in Urine and Sputum Has provider been notified: Yes Wound/ET Consult Routine Reason for Consult:: Skin moy on right side of buttock. DS: Admitting Diagnosis Admitting Diagnosis Admitting Diagnosis: COVID pneumonia DS: Discharge Diagnosis Discharge Diagnosis (1) Hyperosmolar coma due to secondary diabetes: Code(s): E13.01 - Other specified diabetes mellitus with hyperosmolarity with coma Status: Acute Assessment and Plan: Sugar is better no continue with insulin drip monitor blood sugar as per ICU protocol A1c noted to be more than 14 02/01/21 13:28 01/31 patient morbidly obese with history of diabetes presented with DKA, severe metabolic acidosis, fever found to have a COVID-19 and bacterial sinusitis and viral pneumonia patient is on ventilator being treated with Zosyn seen by ID recommended to continue for another 5 days, patient with Db seen by nephrology suspect secondary to hypotension, poor perfusion and dehydration, patient has developed a jerking tremor-like movement discussed with bar tacker there is no neurologist currently available, will try to transfer the patient to tertiary care further evaluate and further recommendation to follow. 02/01 patient remains clinically stable still on vent, hyperglycemia on insulin drip, hypernatremia most likely secondary to free water fluid deficit, bar tacker has increased free water flushes, patient is accepted at the [facility], waiting for the bed, patient seen by bar tacker and cv rn appreciate. (2) High anion gap metabolic acidosis: Code(s): E87.2 - Acidosis Status: Acute Assessment and Plan: improved With improved glycemia as well as the hemodialysis (3) Acute respiratory failure: Code(s): J96.00 - Acute respiratory failure, unspecified whether with hypoxia or hypercapnia Status: Acute Assessment and Plan: patient is intubated on the ventilator at this time Related to pneumonia Intubated on 01/21/2021 Continue vent management per ICU (4) Acute renal failure: Qualifiers: Acute renal failure type: unspecified Qualified Code(s): N17.9 - Acute kidney failure, unspecified Code(s): N17.9 - Acute kidney failure, unspecified Status: Acute Assessment and Plan: consult nephrology Presented with acute kidney injury, lactic acidosis, hyperkalemia initially fluid resuscitated. She was started on hemodialysis per nephrology team. Renal ultrasound was unremarkable with no stones masses or hydronephrosis Urine output currently decent and renal parameters improving (5) COVID-19: Code(s): U07.1 - COVID-19 Status: Acute Assessment and Plan: confirmatory test COVID positive On droplet isolation Started on dexamethasone 01/24 CT chest done confirms pneumonic consolidation sputum culture growing gram-negative bacilli and yeast yet to be identified (6) History of seizu
--- NOTE | 2021-02-02 12:16 | P.PNNP_ITS ---
Progress Note: A&P Assessment and Plan (1) DB (acute kidney injury): Code(s): N17.9 - Acute kidney failure, unspecified Status: Acute Assessment and Plan: * unclear what baseline creatinine normally runs * given his poorly controlled diabetes, he may have some underlying CKD * suspect DB due to decreased volume intake/volume depletion, hypotension, covid, and hyperglycemia * renal ultrasound normal and urine electrolytes c/w pre-renal azotemia * creatinine was gradually improving. Today it is 1.8, the same as yesterday. * I do have him on diuretics which could slow the improvement of the creatinine. (2) Hyperkalemia: Code(s): E87.5 - Hyperkalemia Status: Acute Assessment and Plan: * Potassium is normal today. (3) Hypernatremia: Code(s): E87.0 - Hyperosmolality and hypernatremia Status: Acute Assessment and Plan: * due to free water deficit and insensible losses (fever) * Urine osmolality was about 250 . This was drawn on January 31. At this time his glucose was 140 and BUN was 39. He certainly does not have DI. The patient is not on any medications that would cause an osmotic diuresis. Will continue to give Lasix and free water as needed to keep the sodium down. The Lasix is necessary for the volume overload in this patient with COVID. * On 200cc q.4 of tube feeding flushes. * Tube feedings are 1.2 cals per cc. * on D5W at40cc an hour.. . * Intake/output is even. * Sodium level still 148 * Discussed with Dr. Kerns (4) Septic shock: Code(s): A41.9 - Sepsis, unspecified organism; R65.21 - Severe sepsis with septic shock Status: Acute Assessment and Plan: * criteria of leukocytosis, lactic acidosis, and hypotension along with DB/ARF * no clear source as of yet (CXR and UA unrevealing) * Temperature is finally down. * repeat CT scan on 01/26/21 showing diffuse hepatic steatosis, and findings consistent with COVID. * Donna in the urine and sputum. (5) Acute respiratory failure: Code(s): J96.00 - Acute respiratory failure, unspecified whether with hypoxia or hypercapnia Status: Acute Assessment and Plan: * due to altered mental status, emesis, and inability to protect airway * now complicated by COVID-19 pneumonia * follow CXR and ABGs * FiO2 up to 60% * Continues on the ventilator. * Giving diuretics to help with fluid burden. (6) DKA (diabetic ketoacidoses): Qualifiers: Diabetes mellitus complication detail: without coma Diabetes mellitus type: type 2 Qualified Code(s): E11.10 - Type 2 diabetes mellitus with ketoacidosis without coma Code(s): E11.10 - Type 2 diabetes mellitus with ketoacidosis without coma Status: Acute Assessment and Plan: * admitted with hyperglycemia, high anion gap acidosis and elevated BHOB * s/p aggressive IVF resuscitation * A1c quite elevated * anion gap is down to 12. * Sugars are a lot better * Insulin drip up and down. (7) COVID-19: Code(s): U07.1 - COVID-19 Status: Acute Assessment and Plan: * tested positive by home kit * rechecked here and positive as well * respiratory/contact/droplet isolation * on steroid therapy Subjective Date/time seen: 02/02/21 12:16 Interval history: Italo is on the ventilator. He is sedated. He looks comfortable Exam Narrative: Exam Narrative: General: WD/WN AA male intubated Heart: normal S1 and S2; no rub or gallop Lungs:
--- NOTE | 2021-02-02 12:16 | PM.PNNEP ---
Progress Note: A&P Assessment and Plan (1) DB (acute kidney injury): Code(s): N17.9 - Acute kidney failure, unspecified Status: Acute Assessment and Plan: unclear what baseline creatinine normally runs given his poorly controlled diabetes, he may have some underlying CKD suspect DB due to decreased volume intake/volume depletion, hypotension, covid, and hyperglycemia renal ultrasound normal and urine electrolytes c/w pre-renal azotemia creatinine was gradually improving. Today it is 1.8, the same as yesterday. I do have him on diuretics which could slow the improvement of the creatinine. (2) Hyperkalemia: Code(s): E87.5 - Hyperkalemia Status: Acute Assessment and Plan: Potassium is normal today. (3) Hypernatremia: Code(s): E87.0 - Hyperosmolality and hypernatremia Status: Acute Assessment and Plan: due to free water deficit and insensible losses (fever) Urine osmolality was about 250 . This was drawn on January 31. At this time his glucose was 140 and BUN was 39. He certainly does not have DI. The patient is not on any medications that would cause an osmotic diuresis. Will continue to give Lasix and free water as needed to keep the sodium down. The Lasix is necessary for the volume overload in this patient with COVID. On 200cc q.4 of tube feeding flushes. Tube feedings are 1.2 cals per cc. on D5W at40cc an hour.. . Intake/output is even. Sodium level still [address] Kerns (4) Septic shock: Code(s): A41.9 - Sepsis, unspecified organism; R65.21 - Severe sepsis with septic shock Status: Acute Assessment and Plan: criteria of leukocytosis, lactic acidosis, and hypotension along with DB/ARF no clear source as of yet (CXR and UA unrevealing) Temperature is finally down. repeat CT scan on 01/26/21 showing diffuse hepatic steatosis, and findings consistent with COVID. Donna in the urine and sputum. (5) Acute respiratory failure: Code(s): J96.00 - Acute respiratory failure, unspecified whether with hypoxia or hypercapnia Status: Acute Assessment and Plan: due to altered mental status, emesis, and inability to protect airway now complicated by COVID-19 pneumonia follow CXR and ABGs FiO2 up to 60% Continues on the ventilator. Giving diuretics to help with fluid burden. (6) DKA (diabetic ketoacidoses): Qualifiers: Diabetes mellitus complication detail: without coma Diabetes mellitus type: type 2 Qualified Code(s): E11.10 - Type 2 diabetes mellitus with ketoacidosis without coma Code(s): E11.10 - Type 2 diabetes mellitus with ketoacidosis without coma Status: Acute Assessment and Plan: admitted with hyperglycemia, high anion gap acidosis and elevated BHOB s/p aggressive IVF resuscitation A1c quite elevated anion gap is down to 12. Sugars are a lot better Insulin drip up and down. (7) COVID-19: Code(s): U07.1 - COVID-19 Status: Acute Assessment and Plan: tested positive by home kit rechecked here and positive as well respiratory/contact/droplet isolation on steroid therapy Subjective Date/time seen: 02/02/21 12:16 Interval history: Italo is on the ventilator. He is sedated. He looks comfortable Exam Narrative: Exam Narrative: General: WD/WN AA male intubated Heart: normal S1 and S2; no rub or gallop Lungs: decreased at bases and symmetric Abdomen: soft, nontender, nondistended, positive bowel sounds Extremities: 1+ edema and no cyanosis Skin: no nodules or rash Objective Data Vital Signs Vital Signs: Vital Signs - 24 hr 02/01/21 13:20 02/01/21 13:22 02/01/21 14:00 Temperature 37.7 C H Pulse Rate 93 84 83 Respiratory Rate 27 H 25 H Blood Pressure 133/85 Pulse Oximetry 96 95 02/01/21 14:22 02/01/21 14:29 02/01/21 15:26 Temperature Pulse
--- NOTE | 2021-02-02 13:21 | PCDIET ---
ICU Rounding Note: Tube feedings held overnight for 400mL residual. Resuming feedings, Glucerna 1.2 at 50mL/hr with 200mL water flush every 4 hours, per MD order. Last recorded weight is 129.5kg which is down from last review. -I/O. Bowel Motility: No BM today - loose stools may have resolved. Labs Reviewed: Hgb (8.3), Hct (27.5), Glu (111), BUN (38), Cr (1.8), Na (148), Cl (112) Meds Noted: Bumex, Precedex, Fentanyl, Lantus, IV Insulin, Atrovent, Xopenex, Protonix, Zosyn, Propofol (rate of 35.48mL/hr provides 936kcal per day), Vancomycin Additional Notes: Buttocks macerated. Following daily in ICU rounds. Assessing/reassessing every Saturday/Saturday.
--- NOTE | 2021-02-02 14:00 | PC.NURSE ---
Report given to EDELMIRA Villalba at [facility] in [place]. Patient to be transferred to room 388 via [facility].
--- NOTE | 2021-02-02 15:40 | PC.NURSE ---
Ashleigh Emery and Sarah, updated on patient's transfer to [facility].
[2021-02-02 20:35] LABS: Glucose Point of Care 92 mg/dl (65-105)
[2021-02-02 20:35] LABS: Glucose Point of Care 146 mg/dl (65-105)
[2021-02-02 20:35] LABS: Glucose Point of Care 130 mg/dl (65-105)
[2021-02-02 20:35] LABS: Glucose Point of Care 146 mg/dl (65-105)
[2021-02-02 20:35] LABS: Glucose Point of Care 157 mg/dl (65-105)
[2021-02-02 20:35] LABS: Glucose Point of Care 146 mg/dl (65-105)
[2021-02-02 20:36] LABS: Glucose Point of Care 141 mg/dl (65-105)
== END 2021-02-02 15:38 | disposition short-term general hospital (02) | DRG 720 ==
LOC: ANHED 23:38 → ANHICU 01-22 07:17
PROVIDERS: Emergency Medicine; Internal Medicine; Internal Medicine Nephrology; Physician Assistant; Admitting Provider Internal Medicine; Emergency Provider Emergency Medicine; Visit Provider Emergency Medicine
DX: A41.9 Sepsis, unspecified organism (principal); A41.89 Other specified sepsis; U07.1 COVID-19; J12.82 Pneumonia due to coronavirus disease 2019; N17.8 Other acute kidney failure; E87.5 Hyperkalemia; R65.21 Severe sepsis with septic shock; J96.00 Acute respiratory failure, unspecified whether with hypoxia or hypercapnia; E11.10 Type 2 diabetes mellitus with ketoacidosis without coma; T82.898A Other specified complication of vascular prosthetic devices, implants and grafts, initial encounter; Z68.38 Body mass index [BMI] 38.0-38.9, adult; E66.01 Morbid (severe) obesity due to excess calories; E87.1 Hypo-osmolality and hyponatremia; R56.9 Unspecified convulsions; E86.0 Dehydration; F17.290 Nicotine dependence, other tobacco product, uncomplicated; E11.22 Type 2 diabetes mellitus with diabetic chronic kidney disease; N18.9 Chronic kidney disease, unspecified; J32.9 Chronic sinusitis, unspecified; B37.89 Other sites of candidiasis; G93.41 Metabolic encephalopathy; K85.90 Acute pancreatitis without necrosis or infection, unspecified; B37.49 Other urogenital candidiasis
CPT/HCPCS: 31500; 36415; 36556; 36600; 51702; 70450; 70486; 71045; 71250; 74176; 76775; 80048; 80053; 80074; 80307; 81001; 82010; 82375; 82436; 82550; 82570; 82728; 82805; 82948; 83036; 83050; 83605; 83615; 83690; 83735; 83930; 83935; 84100; 84133; 84145; 84300; 84439; 84443; 84478; 84481; 85025; 85027; 85610; 85730; 85999; 86140; 86706; 87040; 87070; 87086; 87147; 87186; 87205; 93005; 93306; 93970; 94003; 94640; 96361; 96365; 96367; 96368; 96372; 96375; 99291; C1752; A9270; C1751; C9113; C9803; G0257; J0131; J0610; J0692; J1100; J1450; J1644; J1815; J1940; J1953; J2060; J2175; J2250; J2543; J2704; J3010; J3370; J3480; J7030; J7040; J7070; U0003; U0005

== ENCOUNTER 2021-08-07 12:57 | Emergency (ER) | payer OTHER, SELFPAY ==
[2021-08-07] VITALS (8 sets, daily range): BP systolic 100–153; BP diastolic 49–106; PULSE 67–168; RESP 12–24; TEMP 36.4–38.1; O2SAT 97–100
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
--- NOTE | 2021-08-07 14:21 | PC.NURSE ---
1421-PATIENT IS PARAPLEGIC. STATES IS UNABLE TO STAND OR WALK. PATIENT ARRIVED IN WHEELCHAIR. environmental issues instructor TRANSFERRING PATIENT TO [facility] VIA [facility].
--- NOTE | 2021-08-07 14:40 | ED.RECABL ---
HPI - Recheck/Abnormal Lab/Rx General Chief Complaint: Recheck/Abnormal Lab/Rx Stated Complaint: low hemoglobin 7.1 on saturday per family Time Seen by Provider: 08/07/21 14:22 Source: patient Mode of arrival: ambulatory Limitations: no limitations History of Present Illness HPI narrative: Patient is a 36-year-old male sent here by his doctor for blood transfusion. Patient was told that he had a hemoglobin of 7. Patient has a history of multiple blood transfusions in the past, last one he had was 2 weeks ago when his hemoglobin was 4 . Caregiver states that his wounds on his buttocks and back would occasionally bleed, is currently being followed by a academic support specialist and by Dr. Sousa. Patient is on Eliquis due to his history of blood clots according to the mother. Patient has wound on his lower back, currently getting Zosyn IV, due to osteomyelitis, on his third week of treatment, was unable to get his dose today since he was sent here for blood transfusion. Patient has a PICC line that was placed last week. 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 Patient denies any GI bleeding. Related Data Home Medications Medication Instructions Recorded Confirmed No Home Medications 01/22/21 01/22/21 Allergies Allergy/AdvReac Type Severity Reaction Status Date / Time No Known Allergies Allergy Verified 10/09/14 12:32 Review of Systems Review of Systems: All systems reviewed & are unremarkable except as noted in HPI and below Constitutional: Constitutional: Denies body ache(s), Denies chills, Denies excessive sweating, Denies fatigue, Denies fever(s), Denies headache(s), Denies lethargy, Denies malaise, Denies weakness and Denies weight loss Eyes: Eyes: Denies blurry vision, Denies change in vision and Denies loss of vision ENT: Denies dizziness, Denies ear discharge, Denies headache(s), Denies lip swelling, Denies epistaxis, Denies nasal congestion, Denies neck pain, Denies throat swelling and Denies tongue swelling Cardiovascular: Cardiovascular: Denies chest pain, Denies chest pain at rest, Denies chest pain with activity, Denies diaphoresis, Denies rapid heart rate, Denies edema, Denies irregular heart rhythm, Denies lightheadedness, Denies palpitations, Denies dyspnea and Denies dyspnea on exertion Respiratory: Respiratory: Denies chest congestion, Denies cough, Denies hemoptysis, Denies dyspnea and Denies dyspnea on exertion Gastrointestinal: Gastrointestinal: Denies abdominal pain, Denies melena, Denies hematochezia, Denies diarrhea, Denies nausea, Denies vomiting and Denies hematemesis Musculoskeletal: Musculoskeletal: Denies abnormal gait, Denies deformity, Denies joint swelling, Denies limited range of motion, Denies neck pain and Denies numbness Neurologic: Denies Abnormal speech present, Denies abnormal gait, Denies confusion, Denies dizziness, Denies headache(s), Denies focal weakness, Denies loss of vision, Denies numbness, Denies Other visual disturbances, Denies Sensory deficit (Neuro) and Denies weakness Psychiatric: Psychiatric: Denies confusion, Denies depression, Denies auditory hallucinations, Denies homicidal ideation and Denies suicidal ideation Endocrine: Endocrine: Denies cold intolerance, Denies excessive sweating, Denies fatigue, Denies heat intolerance and Denies palpitations Allergic/Immunologic: Allergic/Immunologic: Denies lip swelling, Denies throat swelling and Denies tongue swelling PMFSH Past Medical History Medical History History of diabetes mellitus History of seizures Social History Social History Smoking status: Current every day smoker Tobacco type: cigars Second hand tobacco smoke exposure: Yes Additional smoking assessment comments: 6-10 black and mild cigars per day Alcohol intake: current Drinks per week: 3
--- NOTE | 2021-08-07 14:42 | PC.NURSE ---
1442-PATIENT ARRIVED WITH MENDOZA BAG INSIDE PATIENT BELONGING BAG. SMALL AMOUNT OF URINE IN PATIENT BELONGING BAG. URINE SMELLS STRONG. CAREGIVER REPORTS MENDOZA WAS CHANGED ON 07/07/21 AT [facility]. CAREGIVER STATES #18 WAS PLACED BECAUSE FACILITY DID NOT HAVE A #16 WHICH IS WHAT HE NORMALLY USES. PATIENT HAD PICC LINE PLACED TO LEFT UPPER ARM ON SATURDAY AT [facility]. CAREGIVER STATES PATIENT HAD BLOOD WORK DRAWN FROM PICC LINE ON SATURDAY.
[2021-08-07] MEDS: HYDROmorphone HCL INJ (*CRX) 1 MG/ML SYR 0.5 MG IV PUSH (15:10)
[2021-08-07 15:28] LABS: Basophils Absolute Auto 0.1 K/mm3 (0.0-0.1); Basophils Percent Auto 0.5 % (0.2-1.2); Eosinophils Absolute Auto 0.5 K/mm3 (0-0.3); Eosinophils Percent Auto 3.2 % (0-4.4); Hematocrit 24.1 % (42.0-52.0); Hemoglobin 7.2 g/dL (14.0-18.0); Immature Granulocyte Absolute 0.15 K/mm3 (0.00-0.031); Immature Granulocyte Percent A 0.9 % (0-0.5); Lymphocytes Absolute Auto 1.75 K/mm3 (0.9-3.2); Mean Corpuscular HGB Conc 29.9 g/dl (32-36); Mean Corpuscular Hemoglobin 23.9 pg (26-34); Mean Corpuscular Volume 80.1 fl (80-100); Mean Platelet Volume 8.3 fl (7.4-10.4); Monocytes Percent Auto 12.3 % (2.6-8.5); Neutrophils Absolute Auto 11.5 K/mm3 (1.3-6.7); Neutrophils Percent Auto 72.1 % (45.5-73.1); Platelet Count Result 803 k/mm3 (150-375); Red Blood Count 3.01 M/mm3 (4.6-6.20); Red Cell Distribution Width 18.6 % (11.5-14.5); White Blood Count 15.9 K/mm3 (4.5-10.0)
[2021-08-07 15:38] LABS: INR 1.2; Prothrombin Time 15.4 Seconds (11.1-14.7)
[2021-08-07 15:40] LABS: Alanine Aminotransferase 26 U/L (4-50); Albumin Level 3.4 g/dL (3.5-5.1); Alkaline Phosphatase 228 U/L (38-126); Anion Gap 7 mmol/L (8-16); Aspartate Amino Transferase 33 U/L (17-59); Bilirubin,Total 0.3 mg/dL (0.2-1.3); Blood Urea Nitrogen 14 mg/dL (9-20); Calcium 9.3 mg/dL (8.4-10.2); Carbon Dioxide 26 mmol/L (22-30); Chloride 100 mmol/L (98-107); Estimated CRCL calculation 168 ml/min; Estimated Glomerular Filt Rate > 60; Glucose 139 mg/dL (65-110); Potassium 4.3 mmol/L (3.4-5.0); Sodium 133 mmol/L (137-145)
[2021-08-07 15:45] LABS: Hypochromasia 1+ (NORMAL); Platelet Estimate Increased (Adequate)
--- NOTE | 2021-08-07 19:50 | PC.NURSE ---
This RN explained to pt that it is dangerous to go home with current pt condition and heart rate being so high. pt states I still want to go home . Pt still wanting to leave AMA.
[2021-08-07] MEDS: SODIUM CHLORIDE 0.9% IV 250 ML 30 ML IV CONT (19:55)
--- NOTE | 2021-08-07 20:39 | PC.NURSE ---
blood tubing used for blood transfusion
--- NOTE | 2021-08-07 22:55 | PC.NURSE ---
called [facility] to request transport. ETA [id number]
[2021-08-08 01:06] VITALS: BP 114/50; PULSE 90; RESP 12; TEMP 36.9; O2SAT 100
--- NOTE | 2021-08-08 01:49 | PC.NURSE ---
Addendum entered by Radha Olivera 08/08/21 01:57: [facility] called and does not have a truck available for transport. Original Note: [facility] called and updated ETA to [phone] called [facility] to request transport. [facility] accepted.
--- NOTE | 2021-08-08 02:02 | PC.NURSE ---
called [facility] to request transport. declined
--- NOTE | 2021-08-08 02:03 | PC.NURSE ---
called [facility] to request transport. [facility] declined.
[2021-08-08 03:17] VITALS: BP 115/56; PULSE 88; RESP 18; O2SAT 100
== END 2021-08-08 03:20 | disposition left against medical advice (07) ==
PROVIDERS: Emergency Provider Emergency Medicine; PCP Nurse Practitioner Adult Health
DX: D64.9 Anemia, unspecified (principal); L89.329 Pressure ulcer of left buttock, unspecified stage; G37.3 Acute transverse myelitis in demyelinating disease of central nervous system; U09.9 Post COVID-19 condition, unspecified; G82.20 Paraplegia, unspecified; M86.9 Osteomyelitis, unspecified; E11.9 Type 2 diabetes mellitus without complications; F17.290 Nicotine dependence, other tobacco product, uncomplicated; Z79.01 Long term (current) use of anticoagulants
CPT/HCPCS: 36415; 36430; 80053; 85025; 85610; 85730; 86850; 86900; 86901; 86920; 96361; 96365; 96375; 99284; 99285; J1170; J2543; J7050; P9016

== ENCOUNTER 2021-10-05 12:18 | Outpatient (NON) | payer OTHER, SELFPAY | END 2021-10-05 12:19 | disposition home or self-care (01) | LOC: HOME HLTH 12:19 | PROVIDERS: PCP Nurse Practitioner Adult Health; Visit Provider Nurse Practitioner Adult Health | DX: L08.9 Local infection of the skin and subcutaneous tissue, unspecified (principal) | CPT/HCPCS: 87070; 87077; 87186; 87205 ==

== ENCOUNTER 2022-07-21 15:39 | Emergency (ER) | payer OTHER, SELFPAY ==
--- NOTE | ~2022-07-21 | XR_ITS ---
EXAM: XR foot RT min 3V DATE: 07/21/2022 17:20 HISTORY: laceration . COMPARISON: None available. FINDINGS: Decreased mineralization. Old healed fifth metatarsal shaft fracture. No acute fracture or dislocation. No lytic or blastic lesion. Joint spaces are maintained. No erosion or periosteal carballo e. Diffuse forefoot soft tissue swelling. IMPRESSION: No acute osseous finding in the right foot. Forefoot soft tissue swelling. Severe osteope mark, greater than expected for age. Reviewed, dictated and finalized at location K. ATION ARMY OFFICER IMPRESSION: No acute osseous finding in the right foot. Forefoot soft tissue sw elling. Severe osteopenia, greater than expected for age.
--- NOTE | ~2022-07-21 | XR_ITS ---
EXAMINATION: XR femur LT min 2V DATE: 07/22/2022 04:15 INDICATION: Left femur injury with audible pop TECHNIQUE: AP and lateral views of the left femur obtained on overlapping proximal and distal images. COMPARISON: None. FINDINGS: Spiral fracture of the distal left femoral diaphysis with approximately 1.3 cm posterior medial displ acement at the proximal margin of the fracture, 20 degrees posterior medial angulation and 3-4 cm pro ximal migration with overriding. Advanced erosive arthropathy of the right hip with erosion of nearly the entire right femoral head and neck and erosion and expansion of the acetabulum with protrusio ac etabula. There is prominent nonaggressive appearing periosteal reaction about the intratrochanteric f emur and proximal left femoral diaphysis. This is new since 01/26/2021 which suggests likely sequela of chronic infection. Left knee joint spaces appear normal. No left knee joint effusion. Small amount o f contrast and a Botello catheter in the decompressed bladder likely related to an earlier contrast-enh anced PE protocol chest CT. IMPRESSION: 1. Displaced and angulated spiral fracture of the mid left femoral diaphysis. 2. Advanced arthritis at the left hip with large erosions and prominent nonaggressive appearing perio steal reaction at the proximal femur which along with the relatively rapid development is concerning for chronic septic arthritis and osteomyelitis. Correlate with clinical history. Reviewed, dictated and finalized at location A. SPRING ASSEMBLER IMPRESSION: 1. Displaced and angulated spiral fracture of the mid left femoral diaphysis. 2. Advanced arthritis at the left hip with large erosions and prominent nonaggr essive appearing periosteal reaction at the proximal femur which along with the relatively rapid development is concerning for chronic septic arthritis and os teomyelitis. Correlate with clinical history.
--- NOTE | ~2022-07-21 | CT_ITS ---
EXAMINATION: CTA chest PE protocol DATE: 07/22/2022 00:58 INDICATION: L side CP, SOB TECHNIQUE: Computed tomography angiography (CTA) of the chest was performed with 100 mL Omnipaque-350 intravenous contrast timed to evaluate the pulmonary arteries. Coronal maximum intensity projection 3D-reconstructions were created by the technologist. The dose-length product (DLP) was 666.58 mGy-cm. Automated exposure control and iterative reconstruction technique were employed. COMPARISON: None. FINDINGS: Lung parenchyma and airways: Minimal dependent atelectasis/scar.. Pleura: Unremarkable. Thoracic inlet, axillae and chest wall: Bilateral gynecomastia. Multiple bilateral subcentimeter lymp h nodes with surrounding inflammatory change.. Thoracic aorta: Normal. Mediastinum: Residual thymic tissue.. Heart and pericardium: Normal. Coronary artery calcifications: . Upper abdomen: No significant finding. Bones: No acute osseous finding. Pulmonary arteries: Study quality: Adequate. No pulmonary emboli detected. IMPRESSION: No CT evidence of acute pulmonary embolus. Bilateral gynecomastia. Bilateral inflamed appearing but n ot pathologically enlarged axillary lymph nodes. Reviewed, dictated and finalized at location K. ENT ART CURATOR IMPRESSION: No CT evidence of acute pulmonary embolus. Bilateral gynecomastia. Bilateral in flamed appearing but not pathologically enlarged axillary lymph nodes.
--- NOTE | ~2022-07-21 | XR_ITS ---
EXAMINATION: XR chest 2V Exam Date/Time: 07/21/2022 16:55 SENIOR C SOFTWARE ENGINEER HISTORY: CP ALSO FELL CUT HIS R.FOOT ON WOOD. Comparison: 02/02/2021. RESULT: Lines, tubes, and devices: None. Lungs and pleura: Clear. Cardiomediastinal silhouette: Stable. Other: No acute osseous or upper abdominal finding. IMPRESSION: No acute cardiopulmonary process. Reviewed, dictated and finalized at location K. OR C SOFTWARE ENGINEER
--- NOTE | 2022-07-21 15:44 | ECG_ITS ---
Measurements Intervals [place] Rate: 97 P: 59 WI: 138 QRS: 27 QRSD: 92 T: 4 QT: 330 QTc: 420 Interpretive Statements SINUS RHYTHM WITH SINUS ARRHYTHMIA CANNOT RULE OUT ANTEROSEPTAL MYOCARDIAL INFARCTION, OF INDETERMINATE AGE ABNORMAL ECG COMPARED TO ECG 01/30/2021 06:48:00 HEART RATE HAS DECREASED Electronically Signed On 07-22-2022 15:39:54 CHARTER BOAT OPERATOR by Lazaro Jin M.D.
[2022-07-21 16:26] VITALS: BP 163/93; PULSE 95; RESP 15; TEMP 36.3; O2SAT 100
[2022-07-21 16:40] LABS: Basophils Absolute Auto 0.1 K/mm3 (0.0-0.1); Basophils Percent Auto 0.8 % (0.2-1.2); Eosinophils Absolute Auto 0.1 K/mm3 (0-0.3); Eosinophils Percent Auto 1.7 % (0-4.4); Hematocrit 45.5 % (42.0-52.0); Hemoglobin 13.5 g/dL (14.0-18.0); Immature Granulocyte Absolute 0.03 K/mm3 (0.00-0.031); Immature Granulocyte Percent A 0.4 % (0-0.5); Lymphocytes Absolute Auto 1.98 K/mm3 (0.9-3.2); Mean Corpuscular HGB Conc 29.7 g/dl (32-36); Mean Corpuscular Hemoglobin 25.2 pg (26-34); Mean Corpuscular Volume 84.9 fl (80-100); Mean Platelet Volume 8.9 fl (7.4-10.4); Monocytes Absolute Auto 0.8 K/mm3 (0.1-0.6); Monocytes Percent Auto 10.5 % (2.6-8.5); Neutrophils Absolute Auto 4.6 K/mm3 (1.3-6.7); Neutrophils Percent Auto 60.6 % (45.5-73.1); Platelet Count Result 527 k/mm3 (150-375); Red Blood Count 5.36 M/mm3 (4.6-6.20); Red Cell Distribution Width 14.3 % (11.5-14.5); White Blood Count 7.6 K/mm3 (4.5-10.0)
[2022-07-21 16:48] LABS: Alanine Aminotransferase 15 U/L (6-50); Albumin Level 4.2 g/dL (3.5-5.1); Alkaline Phosphatase 272 U/L (38-126); Anion Gap 6 mmol/L (8-16); Aspartate Amino Transferase 24 U/L (17-59); Bilirubin,Total 0.4 mg/dL (0.2-1.3); Blood Urea Nitrogen 8 mg/dL (9-20); Calcium 9.1 mg/dL (8.4-10.2); Carbon Dioxide 30 mmol/L (22-30); Chloride 103 mmol/L (98-107); Estimated CRCL calculation 171 ml/min; Estimated Glomerular Filt Rate > 60; Glucose 152 mg/dL (65-110); Lipase 12 U/L (23-300); Sodium 139 mmol/L (137-145)
[2022-07-21 17:01] LABS: Troponin I < 0.012 ng/mL (0.000-0.034)
[2022-07-21 17:22] LABS: INR 1.1; Prothrombin Time 13.3 Seconds (11.1-14.7)
[2022-07-21 17:23] LABS: Partial Thromboplastin Time 32.2 SECONDS (22.3-36.8)
[2022-07-21 20:41] VITALS: BP 137/80; PULSE 69; RESP 14; O2SAT 100
[2022-07-21 21:09] LABS: Troponin I < 0.012 ng/mL (0.000-0.034)
[2022-07-21 23:02] VITALS: BP 149/99; PULSE 80; RESP 17; TEMP 36.8; O2SAT 100
--- NOTE | 2022-07-21 23:08 | ED.CHESTPAIN ---
HPI - Chest Pain General Chief Complaint: Chest Pain Stated Complaint: chest pain Time Seen by Provider: 07/21/22 23:01 History of Present Illness HPI narrative: Patient is a 37-year-old male with a history of transverse myelitis secondary to COVID, currently paraplegic, here for evaluation of 02/04, throbbing chest pain in the center of his chest that woke him up from sleep this morning. Patient also reports some shortness of breath. He was given aspirin in route which has alleviated his pain. He denies any cardiac history. He also had a fall this morning out of his wheelchair that he sustained when he was reaching for an object. He lacerated his toe in the fall. No head injury or loss of consciousness. Related Data Allergies Allergy/AdvReac Type Severity Reaction Status Date / Time No Known Allergies Allergy Verified 10/09/14 12:32 Review of Systems Review of Systems: Gen.: Denies fevers or chills Eyes: Denies eye pain or visual change ENT: Denies congestion Respiratory: Reports shortness of breath CV: Reports chest pain GI: Denies abdominal pain nausea, emesis or diarrhea denies burning, urgency, frequency or hematuria Musculoskeletal: Denies back pain or muscle pain Neuro: Denies numbness, tingling, weakness or focal weakness Skin: Denies rash Except as documented, all other systems reviewed and negative PMFSH Past Medical History Medical History History of diabetes mellitus History of seizures Social History Social History Smoking status: Current every day smoker Tobacco type: cigars Second hand tobacco smoke exposure: Yes Additional smoking assessment comments: 6-10 black and mild cigars per day Alcohol intake: current Drinks per week: 3 Substance use: current Substance use type: marijuana Last use: 2-3 weeks Gender identity (if verbalized by the patient): Male Spiritual care concerns: No Exam Narrative: APPEARANCE: Well appearing, no pain in distress, well-nourished. Head: Normocephalic and atraumatic. EYES: PERRLA/EOMI, conjunctivae clear NOSE: No nasal drainage EARS: External ear normal in appearance THROAT: Oropharynx is clear. Mucous membranes are moist. NECK: Supple. No adenopathy, no masses. RESPIRATORY: Airway patent, respirations nonlabored. Clear to auscultation bilaterally, no rales, rhonchi, wheezing. CARDIOVASCULAR: Regular rate and rhythm without murmurs, rubs, or gallops. ABDOMINAL: Normoactive bowel sounds. Soft, nontender, nondistended. No rebound tenderness or guarding. MUSCULOSKELETAL: Patient has a 2 cm irregular crescent shaped abrasion/skin tear along the radial perimeter of his right great toe with no active bleeding; currently held together with butterfly sutures; sutures removed with no active bleeding. toenail is broken; tip was removed and no underlying nailbed laceration is visible. NEURO: Normal speech. No focal neurologic deficits. SKIN: Skin is warm and dry. No rashes. PSYCHIATRIC: Normal affect/mood. Course Vital Signs Vital signs: Vital Signs Temperature 97.4 F L 07/21/22 16:26 Pulse Rate 95 07/21/22 16:26 Respiratory Rate 15 07/21/22 16:26 Blood Pressure 163/93 H 07/21/22 16:26 Pulse Oximetry 100 07/21/22 16:26 Oxygen Delivery Room Air 07/21/22 16:26 Temperature 98.3 F 07/21/22 23:02 Pulse Rate 97 07/22/22 01:46 Respiratory Rate 21 H 07/22/22 01:46 Blood Pressure 149/99 H 07/21/22 23:02 Pulse Oximetry 100 07/22/22 01:46 Oxygen Delivery Room Air 07/21/22 23:02 MDM - Chest Pain MDM Narrative Medical decision making narrative: 37-year-old male history of transverse myelitis here for evaluation of chest pain today. Resolved without intervention after waiting in the waiting room. EKG shows Q waves; compared to previous ECG this is improved. He does have a complex medical history
[2022-07-21 23:52] VITALS: PULSE 72; RESP 15; O2SAT 100
[2022-07-21] MEDS: TETANUS,DIPHTHERIA,AC PERTUSSIS ADULT (0.5 ML) BOOSTRIX IM (23:54)
[2022-07-22] VITALS (37 sets, daily range): BP systolic 113–183; BP diastolic 72–126; PULSE 73–134; RESP 12–29; O2SAT 99–100
--- NOTE | 2022-07-22 01:00 | PC.NURSE ---
Patients juárez drainage bag changed upon request.
--- NOTE | 2022-07-22 03:25 | PC.NURSE ---
Patient calls this nurse into room stating I heard a pop when I moved my leg to itch it. No obvious deformity noted, ERP notified. [facility] to obtain xray.
[2022-07-22] MEDS: HYDROmorphone HCL INJ (*CRX) 1 MG/ML SYR IV PUSH ×2 (07:57→22:16)
--- NOTE | 2022-07-22 09:48 | ECG_ITS ---
Measurements Intervals [place] Rate: 116 P: 52 [place]: 104 QRS: 37 QRSD: 90 T: -5 QT: 309 QTc: 430 Interpretive Statements SINUS TACHYCARDIA WITH SHORT OH INTERVAL NONSPECIFIC T-WAVE ABNORMALITY BORDERLINE ECG COMPARED TO ECG 07/21/2022 16:04:40 HEART RATE HAS INCREASED Electronically Signed On 07-22-2022 15:51:56 IRON WORKER APPRENTICE by Lazaro Jin M.D.
[2022-07-22 12:03] LABS: Influenza A QL RT-PCR Negative (Negative); Influenza B QL RT-PCR Negative (Negative); SARS-CoV-2 RNA PCR Negative
[2022-07-22] MEDS: MORPHINE SULFATE (*CRX) 4 MG/ML INJ IV PUSH (13:08)
--- NOTE | 2022-07-22 17:08 | PC.NURSE ---
update on bed at [facility] No surgical bed at this time remains on surgical bed waitlist
[2022-07-22] MEDS: ALPRAZolam (*CRX) 0.5 MG TABLET PO (18:16)
[2022-07-22] MEDS: oxyCODONE HCL (*CRX) 5 MG TAB IR PO (18:16)
[2022-07-23] VITALS (23 sets, daily range): BP systolic 121–139; BP diastolic 69–86; PULSE 87–124; RESP 10–24; O2SAT 98–100
[2022-07-23 00:59] LABS: Glucose Point of Care 177 mg/dl (65-105)
[2022-07-23] MEDS: ONDANSETRON INJ 4 MG/2 ML VIAL IV PUSH (06:38)
[2022-07-23] MEDS: HYDROmorphone HCL INJ (*CRX) 1 MG/ML SYR IV PUSH (06:38)
--- NOTE | 2022-08-03 14:46 | PC.NURSE ---
LATE ENTRY This note is being entered to document information to the patient's record. The following information was omitted on [07/22/22], by [Lianet Mcdonald RN]. Left long leg splint applied by Lianet Taylor.
== END 2022-07-23 07:30 | disposition short-term general hospital (02) ==
PROVIDERS: Emergency Medicine; Emergency Provider Emergency Medicine
DX: R07.9 Chest pain, unspecified (principal); S90.411A Abrasion, right great toe, initial encounter; S72.8X2A Other fracture of left femur, initial encounter for closed fracture; F17.290 Nicotine dependence, other tobacco product, uncomplicated; G82.20 Paraplegia, unspecified; W05.0XXA Fall from non-moving wheelchair, initial encounter; M85.859 Other specified disorders of bone density and structure, unspecified thigh; E11.9 Type 2 diabetes mellitus without complications; Z23 Encounter for immunization; Z20.822 Contact with and (suspected) exposure to COVID-19
CPT/HCPCS: 29505; 29515; 36415; 71046; 71275; 73552; 73630; 80053; 82948; 83690; 84484; 85025; 85610; 85730; 87636; 90471; 90715; 93005; 96374; 96375; 99284; A9270; J1170; J2270; J2405; Q9967